=== PATIENT | female | born 1965 | race Caucasian/White ===

== ENCOUNTER 2016-10-10 21:08 | Emergency (ER) | payer OTHER ==
[~2016-10-10] VITALS: Ht 175.2 cm; Wt 178.3 kg
[~2016-10-10 21:08] MED LIST: ADVAIR 500/501 E1 INH; ALDACTONE25 M1 PO; AUGMENTIN 400 M50 ML PO; AUGMENTIN 875 M1 TAB PO; AUGMENTIN 875875 MG PO; BACTROBAN OINT22 GM T; BIAXIN500 MG PO; BUMETANIDE1 MG PO; BUMETANIDE2 MG PO; BUMEX2 MG PO; CEFTIN250 MG PO; CEFUROXIME AXE250 MG PO; CLARITIN10 MG PO; COREG3.125 MG PO; COREG6.25 MG PO; COUMADIN1 MG PO; COUMADIN3 M1 PO; COUMADIN4 M2 PO; COUMADIN5 M2 PO; COUMADIN6 MG; Coumadin3 MG PO; DAYPRO600 M1 PO; DELTASONE20 M1 PO; DIFLUCAN150 MG PO; DOXYCYCLINE100 MG PO; DUONEB 3 MG/3 ML3 M1 NEB; FERREX 150150 MG PO; FLEXERIL10 MG PO; FLONASE0.05 MG/AC NS; GLUCOPHAGE500 MG PO; GLUCOTROL XL10 MG PO; HUMULIN 70/30 703 M1 SQ; IMDUR SA30 MG PO; K-DUR20 MEQ PO; LISINOPRIL10 MG PO; LISINOPRIL5 MG PO; LOMOTIL 0.025 M1 TA1 PO; LOVASTATIN20 MG PO; LYRICA75 MG PO; MEDROL DOSEPAK4 MG PO; MOTRIN800 MG PO; NEURONTIN300 MG PO; NORCO 325 MG-7.1 TAB PO; NOVOLIN 70/30 701 EA SC; NOVOLOG1 UNIT/0.0 SC; NOVOLOG100 U/ML SC; OXYGEN NAS; PEN-VEE K500 MG PO; PERCOCET 325 MG1 TA7 PO; POTASSIUM20 MEQ PO; PRAVASTATIN SOD40 MG PO; PREDNISONE10 MG PO; PREDNISONE5 MG PO; PYRIDIUM200 MG PO; ROBAXIN750 MG PO; Synthroid,Levo50 MCG PO; TORADOL10 MG PO; TRAMADOL HCL50 MG PO; TYLENOL325 M1 PO; VICODIN 5/500 505 MG PO; VICODIN 500 MG-1 TAB PO; VICODIN ES 7501 TA1 PO; VICODIN ES 7501 TAB PO; WARFARIN4 MG PO; XANAX0.5 MG PO; ZANTAC150 MG PO; ZITHROMAX Z PA250 MG PO; ZOFRAN ODT4 MG SL
[2016-10-10 21:40] LABS: BASO % 0.3 % (0.0-1.0); EOS # 0.2 10*3/uL (0.0-0.4); EOS % 1.3 % (1.0-4.0); HEMOGLOBIN 9.8 g/dl (12.0-16.0); IG # 0.1 10*3/uL (0.0-0.1); LYMPH # 1.9 10*3/uL (1.3-4.4); LYMPH % 15.8 % (27.0-41.0); MEAN CELL VOLUME 85.1 fl (81.0-99.0); MEAN CORPUSCULAR HGB 25.3 pg (27.0-31.0); MEAN CORPUSCULAR HGB CONC 29.7 g/dl (33.0-37.0); MEAN PLATELET VOLUME 8.5 fl (9.6-12.3); MONO # 0.5 10*3/uL (0.1-1.0); MONO % 4.5 % (3.0-9.0); NEUT # 9.2 10*3/uL (2.3-7.9); NEUT % 77.4 % (47.0-73.0); PLATELET COUNT AUTOMATED 298 10*3/uL (130-400); RED BLOOD COUNT 3.88 10*6/uL (4.10-5.10); RED CELL DISTRI WIDTH 17.8 % (0-14.5); WHITE BLOOD COUNT 11.9 10*3/uL (4.8-10.8)
[2016-10-10 21:50] LABS: PROTHROMBIN TIME 32.8 SECONDS (9.0-12.4)
[2016-10-10 21:59] LABS: ALBUMIN 3.1 gm/dl (3.1-4.5); ALKALINE PHOSPHATASE 111 U/L (45-117); BILIRUBIN, TOTAL 0.2 mg/dl (0.2-1.0); BUN 35 mg/dl (7-24); CARBON DIOXIDE 28 mmol/L (21-32); CHLORIDE 104 mmol/L (98-107); EST GLOM FILT AFRICAN AMERICAN 53 ml/min; GLUCOSE 390 mg/dL (65-99); POTASSIUM 5.1 mmol/L (3.5-5.1); SGOT/AST 9 IU/L (3-35); SGPT/ALT 20 U/L (12-78); SODIUM 141 mmol/L (136-145); TOTAL PROTEIN 7.4 gm/dL (6.4-8.2); TROPONIN I < 0.015 ng/ml (<0.5)
[2016-10-10 22:30] VITALS: BP 160/61
[2016-10-10 22:53] LABS: BILIRUBIN NEGATIVE (NEGATIVE); BLOOD 3+ (NEGATIVE); CLARITY CLEAR (CLEAR); COLOR YELLOW (YELLOW); GLUCOSE 3+ (NEGATIVE); KETONE NEGATIVE (NEGATIVE); LEUKO ESTERASE NEGATIVE (NEGATIVE); NITRITE NEGATIVE (NEGATIVE); PROTEIN 2+ (NEGATIVE); SPECIFIC GRAVITY 1.015 (1.005-1.030); UROBILINOGEN 0.2 E.U./dl (0.2-1.0)
[2016-10-10 23:06] LABS: BACTERIA 2+; RBC 21-30 rbc/hpf (0-2); URINE REFLEX COMMENT YES (NO)
[2016-10-12] MEDS ORDERED: NEURONTIN300 MG PO (14:37)
[2016-10-14] MEDS ORDERED: COREG12.5 M1 PO (07:59)
[2016-10-14] MEDS ORDERED: BUMETANIDE0.25 MG/ML PO (08:04)
[2016-10-26] MEDS ORDERED: ADVAIR 500/501 E1 INH (18:30)
[2016-10-29] MEDS ORDERED: BUMETANIDE0.25 MG/ML PO (08:38)
[2016-10-29] MEDS ORDERED: DUONEB 3 MG/3 ML3 M1 NEB (08:38)
[2016-10-29] MEDS ORDERED: GLIPIZIDE10 M2 PO (08:38)
== END 2016-10-11 00:35 | disposition home or self-care (01) ==
LOC: ED 21:08
PROVIDERS: Emergency Medicine Emergency Medical Services
DX: I50.9 Heart failure, unspecified (principal); I99.8 Other disorder of circulatory system; I10 Essential (primary) hypertension; E11.65 Type 2 diabetes mellitus with hyperglycemia; F41.9 Anxiety disorder, unspecified; Z88.2 Allergy status to sulfonamides; Z88.1 Allergy status to other antibiotic agents; Z79.4 Long term (current) use of insulin; Z79.01 Long term (current) use of anticoagulants; Z79.899 Other long term (current) drug therapy

== ENCOUNTER 2016-12-12 21:11 | Inpatient (IN) | payer OTHER ==
[~2016-12-12] VITALS: Ht 175.2 cm; Wt 178.9 kg
--- NOTE | ~2016-12-12 | PR ---
[place], [place] PROGRESS NOTE NAME: RIRI PETERSON UNIT #: [id number] ROOM: 406 DOCTOR: GILBERTO GUERRA MD BIRTHDATE: [birth year] DOS: 12/14/2016 SUBJECTIVE: The patient is doing fine without any complaints. Her leg edema has improved. She is no longer short of breath. She is back at her baseline. OBJECTIVE: VITAL SIGNS: Blood pressure is 146/63, pulse of 78, respirations 20, temperature 97.8. LUNGS: Clear. HEART: Regular. ABDOMEN: Obese. EXTREMITIES: Without any edema. LABORATORY DATA: Shows a glucose of 122, BUN 49, creatinine 1.7. GFR 35. Sodium 141, potassium 5.2. ASSESSMENT AND PLAN: 1. Acute diastolic congestive heart failure, improved clinically with less leg edema. 2. Type 2 diabetes mellitus with diabetic nephropathy. Kidney functions are stable. There is some slight worsening noticed probably from over-diuresis. Diuretic dosage has been decreased. 3. Benign hypertension, controlled. The plan is to discharge the patient to home today. 4. Factor V Leiden ____, on long-term anticoagulants. Coumadin was held yesterday and she will restart her Coumadin dosage when she goes home. GILBERTO GUERRA MD CM:PNTRANS [id number] GILBERTO GUERRA MD 12/14/16 1143 interface
--- NOTE | ~2016-12-12 | DS ---
[place], [place] DISCHARGE SUMMARY NAME: RIRI PETERSON UNIT #: [id number] ROOM: 406 DOCTOR: GILBERTO GUERRA MD BIRTHDATE: [birth year] DOS: 12/14/2016 DIAGNOSES: 1. Acute diastolic congestive heart failure. 2. Chronic renal failure with acute kidney injury, possibly from over diuresis. 3. Chronic lymphedema. 4. Chronic low back pain. 5. Type 2 diabetes mellitus, insulin-dependent. 6. Factor V Leiden mutation. 7. Benign hypertension. MEDICATIONS: All are same as admission. Only new prescription change made was Bumex was decreased to 2 mg in the morning and 1 mg in the evening. HOSPITAL COURSE: This patient is well known to us, comes in with complaints of difficulty breathing. Please refer H and P for details. After admission, the patient was placed on IV diuretics, breathing treatments, oxygen supplementation. She was noted to have worsening of her kidney failure and so the dosage of diuretic was cut down. She has continued to diurese with the IV Bumex and has improved. Her leg edema and shortness of breath has resolved and therefore this morning, the patient will be discharged to home to be followed up as an outpatient. DISCHARGE MEDICATIONS: Will be Bumex 2 mg in the morning and 1 mg in the evening, Xanax 0.5 t.i.d. p.r.n., insulin in the pump at 3.6 units an hour, lisinopril 10 daily, Percocet 10 q.6, oxygen 3 liters nasal cannula, Warfarin 10 mg daily, and 4 mg extra once a week, gabapentin 300 t.i.d., Coreg 12.5 b.i.d., Advair 500 one puff twice a day, DuoNeb b.i.d., glipizide 10 b.i.d. GILBERTO GUERRA MD CM:DISCHARG [id number] GILBERTO GUERRA MD 12/14/16 1043 interface
--- NOTE | ~2016-12-12 | WRIGHTHP ---
[place], [place] PATIENT HISTORY AND PHYSICAL EXAM NAME: RIRI PETERSON [facility] #: [id number] UNIT #: [id number] ROOM: 406 DOCTOR: GILBERTO GUERRA MD BIRTHDATE: [birth year] DOS: 12/13/2016 HISTORY OF PRESENT ILLNESS: The patient is 51 years old, comes in with complaints of difficulty breathing. The patient complains also of increased leg edema. Denies having any chest pains or palpitations, not have any fever or chills. Cough is not productive, was evaluated in the ER, was found to have mild diastolic CHF and was admitted. The patient denies having any complaints this morning. Her legs are already better with medications. PAST MEDICAL HISTORY: Significant for: 1. Acute diastolic CHF. 2. Chronic kidney disease from diabetic nephropathy. 3. Chronic low back pain. 4. Type 2 diabetes mellitus, insulin-dependent. 5. Morbid obesity. 6. Factor V Leiden mutation on long-term use of anticoagulants. 7. Chronic iron deficiency anemia. MEDICATIONS: She is on are insulin pump, oxygen, DuoNeb, Xanax, Bumex, Coreg, gabapentin, glipizide, lisinopril, warfarin, Percocet, NovoLog sliding scale. SOCIAL HISTORY: Nonsmoker. Does not use any alcohol. Lives at home. PHYSICAL EXAMINATION: GENERAL: She is awake and alert and oriented. VITAL SIGNS: Blood pressure is 133/52, pulse is 62, respirations 20, temperature 98.0. LUNGS: Diminished breath sounds. No wheezes heard. A few rales heard at the bases. HEART: Regular. ABDOMEN: Obese, soft. EXTREMITIES: Trace edema bilaterally. LABORATORY DATA: Chest x-ray again shows mild cardiac enlargement, prominence attenuation of the left hemithorax. White cell count is 10.9, hemoglobin 9.3, hematocrit 30.9, platelets 263. Protime is 41.6 with an INR of 3.6. Comprehensive glucose 206, BUN 52, creatinine 1.30. GFR 44, stage 3 renal failure. Sodium 144, potassium 5.2, chloride 106, bicarbonate 30. ASSESSMENT AND PLAN: 1. The patient who presents with shortness of breath and leg edema with acute diastolic congestive heart failure. The patient has been admitted. IV diuretics were given. Oxygen supplementation to be continued. 2. Chronic renal insufficiency, stage IV renal failure. We will decrease the dose of the Bumex. 3. Hyperkalemia from underlying renal failure, it did come down without any treatment. 4. Type 2 diabetes mellitus, insulin-dependent. She is on an insulin pump insulin. Blood sugars have been ordered. [place], [place] PATIENT HISTORY AND PHYSICAL EXAM NAME: RIRI PETERSON UNIT #: [id number] ROOM: [facility] DOCTOR: GILBERTO GUERRA MD BIRTHDATE: [birth year] GILBERTO GUERRA MD CM:HISPHYS:PATIENT HISTORY AND PHYSICAL EXAMINATION 6 0 GILBERTO GUERRA MD 12/13/16840 interface
[~2016-12-12 21:11] MED LIST changes: +BUMETANIDE0.25 MG/ML PO; +COREG12.5 M1 PO; +GLIPIZIDE10 M2 PO
[2016-12-12 21:14] VITALS: BP 157/69
[2016-12-12 21:38] VITALS: BP 143/53
[2016-12-12 22:11] LABS: BASO % 0.4 % (0.0-1.0); EOS # 0.2 10*3/uL (0.0-0.4); EOS % 2.1 % (1.0-4.0); HEMATOCRIT 30.9 % (37.0-47.0); HEMOGLOBIN 9.3 g/dl (12.0-16.0); LYMPH # 2.1 10*3/uL (1.3-4.4); LYMPH % 19.7 % (27.0-41.0); MEAN CELL VOLUME 87.5 fl (81.0-99.0); MEAN CORPUSCULAR HGB 26.3 pg (27.0-31.0); MEAN CORPUSCULAR HGB CONC 30.1 g/dl (33.0-37.0); MEAN PLATELET VOLUME 8.4 fl (9.6-12.3); MONO # 0.6 10*3/uL (0.1-1.0); MONO % 5.7 % (3.0-9.0); NEUT # 7.8 10*3/uL (2.3-7.9); NEUT % 71.7 % (47.0-73.0); PLATELET COUNT AUTOMATED 263 10*3/uL (130-400); RED BLOOD COUNT 3.53 10*6/uL (4.10-5.10); RED CELL DISTRI WIDTH 16.3 % (0-14.5); WHITE BLOOD COUNT 10.9 10*3/uL (4.8-10.8)
[2016-12-12 22:21] LABS: INTERNATIONAL NORM RATIO 3.6 (2.0-3.5); PROTHROMBIN TIME 41.6 SECONDS (9.0-12.4)
[2016-12-12 22:27] LABS: ALKALINE PHOSPHATASE 109 U/L (45-117); BILIRUBIN, TOTAL 0.2 mg/dl (0.2-1.0); BUN 52 mg/dl (7-24); CARBON DIOXIDE 30 mmol/L (21-32); CHLORIDE 106 mmol/L (98-107); EST GLOM FILT AFRICAN AMERICAN 53 ml/min; GLUCOSE 206 mg/dL (65-99); MAGNESIUM 2.6 mg/dL (1.5-2.1); POTASSIUM 5.2 mmol/L (3.5-5.1); SGOT/AST 14 IU/L (3-35); SGPT/ALT 25 U/L (12-78); SODIUM 144 mmol/L (136-145); TOTAL PROTEIN 7.4 gm/dL (6.4-8.2)
[2016-12-12 22:28] LABS: TROPONIN I < 0.015 ng/ml (<0.045)
[2016-12-12 22:38] VITALS: BP 140/49
[2016-12-13 01:30] VITALS: BP 133/52
[2016-12-13 07:07] LABS: POTASSIUM 4.8 mmol/L (3.5-5.1)
[2016-12-13 08:00] VITALS: BP 106/54
[2016-12-13 12:00] VITALS: BP 143/44
[2016-12-13 16:00] VITALS: BP 131/94
[2016-12-13 20:00] VITALS: BP 126/43
[2016-12-14] VITALS: BP 102/41
[2016-12-14 06:41] LABS: BASO # 0.1 10*3/uL (0.0-0.1); BASO % 0.4 % (0.0-1.0); EOS # 0.2 10*3/uL (0.0-0.4); EOS % 1.9 % (1.0-4.0); HEMOGLOBIN 9.4 g/dl (12.0-16.0); LYMPH # 2.3 10*3/uL (1.3-4.4); LYMPH % 17.9 % (27.0-41.0); MEAN CELL VOLUME 88.2 fl (81.0-99.0); MEAN CORPUSCULAR HGB 25.9 pg (27.0-31.0); MEAN CORPUSCULAR HGB CONC 29.4 g/dl (33.0-37.0); MEAN PLATELET VOLUME 8.6 fl (9.6-12.3); MONO # 0.7 10*3/uL (0.1-1.0); MONO % 5.7 % (3.0-9.0); NEUT # 9.5 10*3/uL (2.3-7.9); NEUT % 73.8 % (47.0-73.0); PLATELET COUNT AUTOMATED 277 10*3/uL (130-400); RED BLOOD COUNT 3.63 10*6/uL (4.10-5.10); RED CELL DISTRI WIDTH 16.2 % (0-14.5); WHITE BLOOD COUNT 12.9 10*3/uL (4.8-10.8)
[2016-12-14 07:28] LABS: POTASSIUM 5.2 mmol/L (3.5-5.1)
[2016-12-14 08:00] VITALS: BP 146/63
[2016-12-14] MEDS ORDERED: BUMETANIDE2 MG PO (08:29)
== END 2016-12-14 10:00 | disposition home health service (06) | DRG 291 ==
LOC: ED 21:11 → 4E 23:37 → EDHOLD 23:37 → 4E 23:51
PROVIDERS: Emergency Medicine Emergency Medical Services; Internal Medicine
DX: I13.0 Hypertensive heart and chronic kidney disease with heart failure and stage 1 through stage 4 chronic kidney disease, or unspecified chronic kidney disease (principal); I50.31 Acute diastolic (congestive) heart failure; J80 Acute respiratory distress syndrome; N18.4 Chronic kidney disease, stage 4 (severe); D68.51 Activated protein C resistance; E11.22 Type 2 diabetes mellitus with diabetic chronic kidney disease; N17.9 Acute kidney failure, unspecified; Z79.01 Long term (current) use of anticoagulants; E87.5 Hyperkalemia; E66.01 Morbid (severe) obesity due to excess calories; I89.0 Lymphedema, not elsewhere classified

== ENCOUNTER 2017-03-24 15:48 | Emergency (ER) | payer OTHER ==
[~2017-03-24] VITALS: Ht 175.2 cm; Wt 178.3 kg
[2017-03-24 16:14] VITALS: BP 119/55
[2017-03-24 17:20] LABS: BASO % 0.4 % (0.0-1.0); EOS # 0.2 10*3/uL (0.0-0.4); EOS % 1.7 % (1.0-4.0); HEMATOCRIT 32.3 % (37.0-47.0); HEMOGLOBIN 9.3 g/dl (12.0-16.0); LYMPH # 1.9 10*3/uL (1.3-4.4); LYMPH % 16.6 % (27.0-41.0); MEAN CELL VOLUME 84.1 fl (81.0-99.0); MEAN CORPUSCULAR HGB 24.2 pg (27.0-31.0); MEAN CORPUSCULAR HGB CONC 28.8 g/dl (33.0-37.0); MEAN PLATELET VOLUME 8.5 fl (9.6-12.3); MONO # 0.7 10*3/uL (0.1-1.0); MONO % 5.7 % (3.0-9.0); NEUT # 8.5 10*3/uL (2.3-7.9); NEUT % 75.2 % (47.0-73.0); PLATELET COUNT AUTOMATED 275 10*3/uL (130-400); RED BLOOD COUNT 3.84 10*6/uL (4.10-5.10); RED CELL DISTRI WIDTH 16.9 % (0-14.5); WHITE BLOOD COUNT 11.3 10*3/uL (4.8-10.8)
[2017-03-24 17:31] LABS: PROTHROMBIN TIME 34.2 SECONDS (9.0-12.4)
[2017-03-24 17:37] LABS: ALBUMIN 3.4 gm/dl (3.1-4.5); ALKALINE PHOSPHATASE 91 U/L (45-117); BILIRUBIN, TOTAL 0.3 mg/dl (0.2-1.0); BUN 53 mg/dl (7-24); CARBON DIOXIDE 29 mmol/L (21-32); CHLORIDE 104 mmol/L (98-107); CPK 83 U/L (26-192); EST GLOM FILT AFRICAN AMERICAN 41 ml/min; GLUCOSE 226 mg/dL (65-99); MAGNESIUM 2.6 mg/dL (1.5-2.1); SGOT/AST 9 IU/L (3-35); SGPT/ALT 18 U/L (12-78); SODIUM 140 mmol/L (136-145); TOTAL PROTEIN 7.4 gm/dL (6.4-8.2)
[2017-03-24 17:40] LABS: CKMB < 0.5 ng/ml (0.5-3.6); TROPONIN I < 0.015 ng/ml (<0.045)
[2017-03-24] MEDS ORDERED: CLINDAMYCIN HC300 MG PO (18:36)
== END 2017-03-24 18:25 | disposition home or self-care (01) ==
LOC: ED 15:48
PROVIDERS: Registered Nurse
DX: L03.116 Cellulitis of left lower limb (principal); E11.59 Type 2 diabetes mellitus with other circulatory complications; N18.3 Chronic kidney disease, stage 3 (moderate); R79.1 Abnormal coagulation profile; I50.9 Heart failure, unspecified; Z88.1 Allergy status to other antibiotic agents; Z88.2 Allergy status to sulfonamides; Z79.01 Long term (current) use of anticoagulants; Z90.49 Acquired absence of other specified parts of digestive tract; Z79.899 Other long term (current) drug therapy

== ENCOUNTER 2017-05-24 11:48 | Inpatient (IN) | payer OTHER ==
[~2017-05-24] VITALS: Ht 175.3 cm; Wt 188.2 kg
--- NOTE | ~2017-05-24 | CON ---
[place], [place] REPORT OF CONSULTATION NAME: RIRI PETERSON UNIT #: [id number] ROOM: 426 DOCTOR: QUENTIN DEVLIN MD BIRTHDATE: [birth year] DOS: 05/25/2017 HISTORY OF PRESENT ILLNESS: This is a 52-year-old -[place] woman with a history of extreme obesity, essential hypertension, type 2 diabetes mellitus and chronic renal insufficiency. She has been diagnosed with diastolic heart failure by me in the past and has had decompensation. She was here a few months ago with increasing shortness of breath and little more swelling. When she is on loop diuretic, her renal function seems to deteriorate to some extent. She had noticed increasing shortness of breath 2 to 3 days before this admission along with some weight gain. She has some dry chronic cough. She had no chest pain or palpitations. There was no dizziness or loss of consciousness. Some swelling of the legs, more so on the left side. She has obstructive sleep apnea and I believe has not used any CPAP. HOME MEDICATIONS: Advair, DuoNeb, alprazolam 0.5 mg t.i.d. p.r.n., bumetanide 2 mg daily, carvedilol 12.5 b.i.d., lisinopril 10 mg daily, oxycodone/acetaminophen daily and oxygen 3 liters per minute. PHYSICAL EXAMINATION: GENERAL: This reveals a patient who is extremely obese. She is alert and oriented. She has oxygen on and is moderately tachypneic. Her complexion is fine. She has no ____. NECK: Thyroid gland is difficult to palpate. VITAL SIGNS: Pulse is irregular at 60, blood pressure 133/65. JVP is difficult to assess, but I think probably not increased. RESPIRATORY: Breath sounds are moderately diminished bilaterally. No murmurs are present. She has 1 to 2+ edema in the lower extremities, little more on the left side. LABORATORY DATA: Chest x-ray does demonstrate some pulmonary congestion. BUN 51, creatinine 1.5, potassium is 5.0, hemoglobin 8.2 g/dL. She had an echocardiogram done earlier this year, which demonstrated normal LV systolic function. The quality of the study was poor because of her extreme obesity. IMPRESSION: 1. She probably has some degree of diastolic heart failure with some acute exacerbation. 2. Chronic kidney disease. 3. Moderate anemia. RECOMMENDATIONS: 1. IV Bumex should be continued. 2. When she is discharged home, either she should be on torsemide 40 mg daily or perhaps bumetanide along with a small dose of Zaroxolyn couple of times a week. 3. Anemia is quite significant and it is not clear whether etiology has been [place], [place] REPORT OF CONSULTATION NAME: RIRI PETERSON UNIT #: [id number] ROOM: 426 DOCTOR: QUENTIN DEVLIN MD BIRTHDATE: [birth year] determined. I thank you for this consult. QUENTIN DEVLIN MD CM:CONSTR:REPORT OF CONSULTATION 1716 05/26/17 0623 interface
--- NOTE | ~2017-05-24 | WRIGHTHP ---
[place], [place] PATIENT HISTORY AND PHYSICAL EXAM NAME: RIRI PETERSON UNIT #: [id number] ROOM: 426 DOCTOR: GILBERTO GUERRA MD BIRTHDATE: [birth year] DOS: 05/24/2017 HISTORY OF PRESENT ILLNESS: The patient is 52 years old, very well known to us, comes in with complaints of shortness of breath. As per family, she is unable to even walk a few steps without getting short of breath and oxygen saturation was running low even while on 2 liters of oxygen. The patient denies having any chest pains, palpitations. Says that she has been taking all her medications regularly. PAST MEDICAL HISTORY: Significant for last hospitalization in December 2016 with; 1. Diastolic CHF. 2. Chronic renal failure, stage 3. 3. Chronic lymphedema. 4. Chronic low back pain. 5. Type 2 diabetes mellitus, insulin dependent. 6. Benign hypertension. 7. Factor V Leiden mutation on long-term anticoagulants. MEDICATIONS: She is currently are insulin pump, carvedilol 12.5 b.i.d., glipizide 10 b.i.d., lisinopril 10 daily, Percocet 10 q. 6, Bumex 2 mg daily, breathing treatments, oxygen, Xanax 0.5 t.i.d. p.r.n., warfarin. SOCIAL HISTORY: Nonsmoker, does not use any alcohol. PHYSICAL EXAMINATION: GENERAL: She is awake and alert and oriented. VITAL SIGNS: Blood pressure is 132/49, pulse is 67, respirations 20, temperature 97.8. LUNGS: Diminished breath sounds, very poor air entry. HEART: Regular. ABDOMEN: Obese, soft, nontender. EXTREMITIES: Trace edema bilaterally. ASSESSMENT AND PLAN: 1. Acute diastolic congestive heart failure with hypoxic respiratory failure, acute. The patient has been admitted. IV diuretics have been ordered. Chest x-ray and routine labs have been ordered. 2. Long-term use of anticoagulants. The patient's protime was on the high side. Coumadin will be on hold. 3. Anemia. Iron, B12 and folic acid levels have been ordered along with Hemoccults. 4. Type 2 diabetes mellitus, insulin-dependent. Continue insulin pump. The patient manages it on her own. 5. Chronic kidney disease with stage 3. Continue close monitoring since she is on high dose of diuretics. [place], [place] PATIENT HISTORY AND PHYSICAL EXAM NAME: RIRI PETERSON UNIT #: [id number] ROOM: 426 DOCTOR: GILBERTO GUERRA MD BIRTHDATE: [birth year] GILBERTO GUERRA MD CM:HISPHYS:PATIENT HISTORY AND PHYSICAL EXAMINATION 6 5 GILBERTO GUERRA MD 05/25/17945 interface
--- NOTE | ~2017-05-24 | PR ---
[place], [place] PROGRESS NOTE NAME: RIRI PETERSON UNIT #: [id number] ROOM: 426 DOCTOR: GILBERTO GUERRA MD BIRTHDATE: [birth year] DOS: SUBJECTIVE: The patient is doing much better, does not have any new complaints today. OBJECTIVE: VITAL SIGNS: Graphic trend shows pressure 132/52, pulse of 58, respirations 16, afebrile. LUNGS: Diminished breath sounds, clear this morning. HEART: Regular. ABDOMEN: Obese, soft. EXTREMITIES: Trace edema bilaterally. ASSESSMENT AND PLAN: 1. Acute diastolic congestive heart failure, improved. 2. Acute hypoxic respiratory failure. Oxygen saturation is improved. She is on chronic oxygen supplementation at home. 3. Long-term use of anticoagulants. Protime is down to 3.1. We will restart the Coumadin and discharge. 4. Chronic renal insufficiency, stage 3, which pretty much is stable and may have improved slightly since admission even though she is on a different dose of diuretics. GILBERTO GUERRA MD CM:PNTRANS 1 1 GILBERTO GUERRA MD 05/26/17921 interface
[~2017-05-24 11:48] MED LIST changes: +CLINDAMYCIN HC300 MG PO
[2017-05-24 12:00] VITALS: BP 155/62
--- NOTE | 2017-05-24 12:03 | NUR ---
A 52, admitted to , under the services of GILBERTO Lenz MD with a diagnosis of CHF. Chief complaint is CHF. Patient arrived via bed from NH. Monitor applied. Initial assessment completed. Vital signs taken and recorded. GILBERTO LENZ MD notified of admission to the unit. Orders received. See assessment for past medical history, medications and allergies. Patient and/or family oriented to unit. [facility]. Clothing/patient valuable form completed. LISETH LOCKHART
[2017-05-24] MEDS ORDERED: BUMETANIDE2 MG PO (12:52)
--- NOTE | 2017-05-24 13:49 | NUR ---
MULTIPLE ATTEMPS TO CONTACT VIA HER OFFICE AND CELL PHONE FOR ORDERS, UNABLE TO CONTACT HER AT THIS TIME. WILL CONTINUE TO TRY
--- NOTE | 2017-05-24 15:46 | NUR ---
NOTIFIED OF CONSULT WILL SEE PT IN THE AM
[2017-05-24 15:51] LABS: BASO % 0.4 % (0.0-1.0); EOS # 0.2 10*3/uL (0.0-0.4); HEMATOCRIT 28.7 % (37.0-47.0); HEMOGLOBIN 8.2 g/dl (12.0-16.0); LYMPH # 1.8 10*3/uL (1.3-4.4); LYMPH % 18.8 % (27.0-41.0); MEAN CELL VOLUME 85.2 fl (81.0-99.0); MEAN CORPUSCULAR HGB 24.3 pg (27.0-31.0); MEAN CORPUSCULAR HGB CONC 28.6 g/dl (33.0-37.0); MEAN PLATELET VOLUME 8.4 fl (9.6-12.3); MONO # 0.6 10*3/uL (0.1-1.0); MONO % 6.4 % (3.0-9.0); NEUT # 6.8 10*3/uL (2.3-7.9); PLATELET COUNT AUTOMATED 247 10*3/uL (130-400); RED BLOOD COUNT 3.37 10*6/uL (4.10-5.10); RED CELL DISTRI WIDTH 17.3 % (0-14.5); WHITE BLOOD COUNT 9.5 10*3/uL (4.8-10.8)
[2017-05-24 16:00] VITALS: BP 117/50
[2017-05-24 16:02] LABS: CREATININE 1.5 mg/dL (0.55-1.02)
--- NOTE | 2017-05-24 18:20 | NUR ---
IV TO LEFT ARM OCCLUDED, NEW IV STARTED IN RIGHT ARM, 24GAGE, ON FIRST ATTEMPT.FLUSHED WITHOUT DIFFICULTY, GOOD BLOOD RETURN. PT TOLERATED WELL
--- NOTE | 2017-05-24 19:45 | NUR ---
PATIENT RESTING IN BED WATCHING TV. C/O SHORTNESS OF BREATH ON EXERTION. O2 NC INTACT. NO NEEDS MADE. BED IN LOWEST POSITION, CALL LIGHT IN REACH
[2017-05-24 20:00] VITALS: BP 147/72
[2017-05-25] VITALS: BP 132/49
--- NOTE | 2017-05-25 02:16 | NUR ---
PATIENT RESTING IN BED WITH NO S/S OF DISTRESS. RESPS EASY AND REGULAR. BED IN LOWEST POSITION, CALL LIGHT IN REACH
--- NOTE | 2017-05-25 05:29 | NUR ---
PATIENT DID SELF BLOOD GLUCOSE CHECK AT THIS TIME. RESULT 102. NO INSULIN GIVEN BY PATIENT VIA PUMP AT THIS TIME. WILL MONITOR
[2017-05-25 07:06] LABS: INTERNATIONAL NORM RATIO 3.8 (2.0-3.5)
[2017-05-25 08:00] VITALS: BP 129/66
--- NOTE | 2017-05-25 08:30 | NUR ---
Veterinary Technician in to talk to patient. Patient states lives at [address] with HER FAMILY. There are 0 steps in the home. Physician: DR GUERRA Pharmacy: [facility] Home health services: HAD OV AND REQUESTS THEM AGAIN UPON DC Patient's level of ADLs: MODERATE ASSIST Patient has working utilities: YES DME: NEB/CPAP/O2 FROM [facility] Follow-up physician's appointment after d/c: PREFERS TO MAKE HER OWN APPT Does patient want to access PORTAL?: Discharge plan HOME. FAVIAN HOWARD PT ASKING THAT I CALL HER BEE KEEPER ANNE AT [phone]
--- NOTE | 2017-05-25 10:00 | NUR ---
PATIENT HAS AN INSULIN PUMP AND A GLUCOMETER AT BEDSIDE.SHE REGULATES THE PUMP HERSELF NEEDED. DR CHARLIE MATHIAS.
--- NOTE | 2017-05-25 10:48 | NUR ---
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
--- NOTE | 2017-05-25 11:30 | NUR ---
BLOOD SUGAR TESTED BY PATIENT TO BE 128, NO COVERAGE NEEDED.
[2017-05-25 12:00] VITALS: BP 151/66
[2017-05-25 16:00] VITALS: BP 133/65
--- NOTE | 2017-05-25 17:30 | NUR ---
BLOOD SUGAR TAKEN BY PATIENT ,METER READS 113, NO COVERAGE NEEDED.
[2017-05-25 20:00] VITALS: BP 128/48
[2017-05-26] VITALS: BP 132/52
--- NOTE | 2017-05-26 02:35 | NUR ---
24 HR chart check completed.
[2017-05-26 06:50] LABS: BASO % 0.3 % (0.0-1.0); EOS # 0.2 10*3/uL (0.0-0.4); EOS % 1.8 % (1.0-4.0); HEMATOCRIT 28.5 % (37.0-47.0); LYMPH # 1.6 10*3/uL (1.3-4.4); LYMPH % 16.8 % (27.0-41.0); MEAN CELL VOLUME 84.8 fl (81.0-99.0); MEAN CORPUSCULAR HGB 23.8 pg (27.0-31.0); MEAN CORPUSCULAR HGB CONC 28.1 g/dl (33.0-37.0); MEAN PLATELET VOLUME 8.9 fl (9.6-12.3); MONO # 0.7 10*3/uL (0.1-1.0); MONO % 6.7 % (3.0-9.0); NEUT # 7.1 10*3/uL (2.3-7.9); NEUT % 74.1 % (47.0-73.0); PLATELET COUNT AUTOMATED 259 10*3/uL (130-400); RED BLOOD COUNT 3.36 10*6/uL (4.10-5.10); RED CELL DISTRI WIDTH 17.2 % (0-14.5); WHITE BLOOD COUNT 9.6 10*3/uL (4.8-10.8)
[2017-05-26 07:20] LABS: CREATININE 1.71 mg/dL (0.55-1.02)
[2017-05-26 07:26] LABS: INTERNATIONAL NORM RATIO 3.1 (2.0-3.5)
[2017-05-26 08:00] VITALS: BP 134/75
[2017-05-26] MEDS ORDERED: Zaroxolyn,Diul2.5 MG PO (08:04)
[2017-05-26] MEDS ORDERED: OXYCODONE HYDRO10 M2 PO (08:40)
--- NOTE | 2017-05-26 10:30 | NUR ---
Patient being discharged to home with home health via [facility]. Received order and faxed referral to [facility].
--- NOTE | 2017-05-26 10:51 | NUR ---
[facility] Discharge instructions reviewed with patient/family. Patient receptive and verbalizes understanding. Follow-up care arranged. Written instructions given to patient/family. ZULAY SMITH
--- NOTE | 2017-05-26 10:59 | NUR ---
pt refused sa tx..she is being discharged
== END 2017-05-26 11:32 | disposition home health service (06) | DRG 291 ==
LOC: 4E 11:48
PROVIDERS: ADMIT Internal Medicine
DX: I13.0 Hypertensive heart and chronic kidney disease with heart failure and stage 1 through stage 4 chronic kidney disease, or unspecified chronic kidney disease (principal); I50.33 Acute on chronic diastolic (congestive) heart failure; J96.01 Acute respiratory failure with hypoxia; Z68.44 Body mass index [BMI] 60.0-69.9, adult; N18.3 Chronic kidney disease, stage 3 (moderate); G89.29 Other chronic pain; M54.5 Low back pain; E11.22 Type 2 diabetes mellitus with diabetic chronic kidney disease; E66.8 Other obesity; D64.9 Anemia, unspecified; Z79.01 Long term (current) use of anticoagulants; Z99.81 Dependence on supplemental oxygen

== ENCOUNTER 2017-07-02 22:15 | Inpatient (IN) | payer OTHER ==
[~2017-07-02] VITALS: Ht 175.2 cm; Wt 188.7 kg
--- NOTE | ~2017-07-02 | DS ---
[place], [place] DISCHARGE SUMMARY NAME: RIRI PETERSON UNIT #: [id number] ROOM: 503 DOCTOR: FANTA GARDUNO MD BIRTHDATE: [birth year] DOS: 07/05/2017 DISCHARGE DIAGNOSES: 1. Coagulopathy with INR 4.2. The patient asked to hold Coumadin for 2 days and get protime performed again at the office and she sees Dr. Wolf within a week. 2. The patient with acute diastolic type congestive heart failure, improved with diuresis. Dr. Lal, her steel die printer followed her. 3. Morbid obesity, BMI of 61.9. The patient followed with Dietary. 4. Benign essential hypertension. Blood pressures were followed and treated. 5. Chronic atrial fibrillation. The patient anticoagulated with Coumadin. 6. Anemia of chronic disease. 7. Factor V Leiden mutation for which patient anticoagulated with Coumadin. 8. Generalized anxiety disorder. 9. Chronic lower back pains. 10. Chronic kidney disease stage 3, diabetic nephropathy. 11. Chronic lymphedema and changes in the legs. HOSPITAL COURSE: The patient was seen in the Emergency Department for hypoxemia and increased shortness of breath and the patient was admitted for congestive heart failure, treated with IV Bumex. The patient's breathing has improved and the patient was also seen by her steel die printer, Dr. Lal and professional athlete, Dr. Brown and the patient being cleared for discharge by Dr. Brown to home to follow up with her PCP, Dr. Wolf next week. Elevation of INR, apparently related to her medical treatment during her admission. The patient has been asked to hold back her Coumadin for 2 days and then restart the same dose and get her protime performed at office next week when she sees her PCP, Dr. Wolf. Chronic kidney disease stage 3 with diabetic nephropathy. Benign essential hypertension, with better controlled blood pressures now. Uncontrolled type 2 diabetes mellitus with poor compliance with diet. Morbid obesity. The patient worked with Dietary. Acute over chronic diastolic type CHF, improved with diuresis with IV Bumex. DISCHARGE LABORATORY DATA: BUN and creatinine of 50 and 1.5. Normal serum electrolytes. INR elevated at 4.2 today. A repeat chest x-ray showed no CHF. DISCHARGE MANAGEMENT: Coumadin on hold for 2 days, after which she will be started on 4 mg every Bernadette, total of 7 mg every Tuesday, Tuesday, , Tuesday and Tuesday; Dulera 2 inhalations twice a day, lisinopril 10 mg daily and oxycodone 10 mg every 6 hours as needed, Xanax 0.5 mg 8 hours p.r.n. for anxiety. [place], [place] DISCHARGE SUMMARY NAME: RIRI PETERSON UNIT #: [id number] ROOM: [facility] DOCTOR: FANTA GARDUNO MD BIRTHDATE: [birth year] FANTA GARDUNO MD CM:BERTRAM 05 01 FANTA GARDUNO MD 07/05/172299 interface
--- NOTE | ~2017-07-02 | WRIGHTHP ---
[place], [place] PATIENT HISTORY AND PHYSICAL EXAM [id number] UN[facility] #: [id number] ROOM: 503 DOCTOR: FANTA GARDUNO MD BIRTHDATE: [birth year] DOS: 07/03/2017 HISTORY OF PRESENT ILLNESS: The patient is a 52-year-old female with; 1. History of morbid obesity. 2. Diastolic chronic CHF, chronic kidney failure stage 3 and diabetic nephropathy, chronic lymphedema and chronic lower extremity swelling. 3. Chronic lower back pains. 4. Type 2 diabetes mellitus, insulin requiring and uncontrolled. 5. Benign essential hypertension. 6. Factor V Leiden mutation and long-term anticoagulation. 7. Generalized anxiety disorder. The patient presented to the Emergency Department and was seen by Dr. Worley for increasing shortness of breath starting yesterday evening and her pulse ox dropped to 72%. She was feeling more short of breath with exertion. The patient already takes oxygen at home. The patient was evaluated in the Emergency Department and diagnosed as having diastolic type acute CHF, given diuretics and recommended admission for further management through a monitored bed. After admission, the patient is starting to breathe somewhat better. She is on oxygen which she also takes at home. No chest pains, no GI or urinary symptoms. SYSTEMS REVIEW: LUNGS: Increased shortness of breath, no wheezing. GASTROINTESTINAL: No nausea, vomiting, diarrhea or constipation. CARDIOVASCULAR: No chest pains or palpitations. FAMILY HISTORY: Noncontributory. HOME MEDICATIONS: Coumadin, lisinopril, Bumex, glipizide, Coreg, Flovent, glipizide, oxycodone, Xanax. PHYSICAL EXAMINATION: GENERAL APPEARANCE: Alert, oriented x 3, morbidly obese. HEENT AND NECK: Extraocular movements are intact. Sclerae are anicteric. Oral mucosa is moist and clean. No obvious facial weakness. Neck is supple without any lymphadenopathy. No thyromegaly. No JVD. No carotid arterial bruits. LUNGS: Some basal crackles bilaterally. CARDIOVASCULAR SYSTEM: Heart rate is regular in rate and rhythm. S1 and S2 normally audible. No significant murmur or any other abnormal cardiac sounds. ABDOMEN: Soft, nontender. No obvious organomegaly. Bowel sounds are present. No obvious herniation. EXTREMITIES: She also has 2 to 3+ leg and pedal edema bilaterally her legs. CENTRAL NERVOUS SYSTEM: Alert and oriented x 3. Cranial nerves II-XII are intact. Speech is normal. The patient is able to move all extremities. Normal muscle strength. Deep tendon reflexes are equal on both sides. Plantars were downgoing. LABORATORY DATA: 11-15 wbc's in the urine and some blood cells. BUN and creatinine 47 and 1.4, otherwise normal serum electrolytes. Hemoglobin 8.5, white cell count 12,900. Chest x-ray showing possible CHF. [place], [place] PATIENT HISTORY AND PHYSICAL EXAM NAME: RIRI PETERSON UNIT #: [id number] ROOM: [facility] DOCTOR: LAUREEN SEPULVEDA,FANTA Orellana BIRTHDATE: [birth year] IMPRESSION: 1. The patient with acute diastolic type congestive heart failure and increased shortness of breath with hypoxemia, has been admitted to a monitored bed and Dr. Lal, her warehouse person has been consulted for further management of her congestive heart failure. 2. Morbid obesity, body mass index of 61.9, dietary to follow. 3. Benign essential hypertension. Blood pressure had been monitored and treated and controlled. Diabetic nephropathy stage 3 chronic kidney disease to be followed with BUN and creatinine levels and basic metabolic profile to be performed daily. 4. Uncontrolled type 2 diabetes mellitus, insulin requiring, related to noncompliance with diet. The patient kept on no concentrated sweet diet. 5. Factor V Leiden mutation. The patient to be continued on Coumadin, protimes to be monitored daily. INR was therapeutic at 2.5 yesterday. 6. Anemia of chronic disease. Hemoglobin 8.5 has been low since October and stays around this range. FANTA GARDUNO MD CM:HISPHYS:PATIENT HISTORY AND PHYSICAL EXAMINATION 51 46 FANTA GARDUNO MD 07/03/172045 interface
--- NOTE | ~2017-07-02 | PR ---
[place], [place] PROGRESS NOTE NAME: RIRI PETERSON UNIT #: [id number] ROOM: 503 DOCTOR: FANTA GARDUNO MD BIRTHDATE: [birth year] DOS: 07/04/2017 SUBJECTIVE: Patient says her breathing has significantly improved and she would like to go home. OBJECTIVE: VITAL SIGNS: Blood pressure 165/84, heart rate 74 beats, breathing 20 times per minute, temperature 98.1 degrees Fahrenheit. GENERAL APPEARANCE: The patient is alert and oriented x 3, in no visible distress. Morbid obesity. HEENT AND NECK: Exam within normal limits. CARDIOVASCULAR SYSTEM: Heart rate is regular in rate and rhythm. S1 and S2 normally audible. LUNGS: Decreased breath sounds. ABDOMEN: Soft, nontender. No obvious organomegaly. Bowel sounds are present. EXTREMITIES: Without significant cyanosis or edema. IMPRESSION: 1. Patient with diastolic type congestive heart failure, improved with diuresis. Dr. Lal, her hand ii thermal cutter is following. 2. Morbid obesity with BMI of 61.9. Patient being followed by Dietary. 3. Benign essential hypertension with somewhat elevated blood pressures. Dr. Lal, her hand ii thermal cutter is following. Patient is already on Coreg and lisinopril. I will increase the dose of lisinopril. 4. Chronic atrial fibrillation. Patient anticoagulated with Coumadin. INR is slightly elevated at 3.1 today. I will continue to follow. 5. Anemia of chronic disease. I will repeat hemoglobin and CBC tomorrow. 6. Patient anticoagulated for Factor V Leiden mutation. FANTA GARDUNO MD CM:PNTRANS [phone] FANTA GARDUNO MD 07/05/17 0025 interface
--- NOTE | ~2017-07-02 | PR ---
[place], [place] PROGRESS NOTE NAME: RIRI PETERSON UNIT #: [id number] ROOM: 503 DOCTOR: UVALDO GONZALES MD,AMISH BIRTHDATE: [birth year] DOS: 07/05/2017 PULMONARY FOLLOWUP SUBJECTIVE: She has been noted much better this morning. Shortness of breath symptoms have been resolving. Edema of the lower extremity has been improving. Currently, has Danny wraps in place. OBJECTIVE: VITAL SIGNS: Recorded showed the temperature noted normal, respiratory rate 20, heart rate 68, blood pressure 146/56. Pulse oxygen saturation 3 liters cannula 99% saturation. HEENT: No acute change. NECK: Supple. CARDIOVASCULAR: S1, S2 audible. LUNGS: Noted without any wheeze or crackles. ABDOMEN: Soft, nontender. EXTREMITIES: Showed chronic changes. LABORATORY DATA: INR noted 4.2 mildly elevated above the therapeutic range. BMP today: BUN 50, creatinine 1.54. The chest x-ray done this morning does not show any further pleural fluid. IMPRESSION: The patient ____ of the pleural fluid with area of atelectasis left lower lobe is improving, congestive heart failure over respiratory status. PLAN OF TREATMENT: From the pulmonary standpoint, the patient could be discharged home whenever desired by the primary care physician. AMISH BAILON MD CM:PNTRANS [id number] AMISH GONZALES MD 07/06/176 interface
--- NOTE | ~2017-07-02 | EKG ---
[place], [place] ELECTROCARDIOGRAM REPORT NAME: RIRI PETERSON UNIT #: [id number] ROOM: 503 DOCTOR: AMISH GOMEZ MD BIRTHDATE: [birth year] DOS: 07/03/2017 ELECTROCARDIOGRAM TIME: 10:57 p.m. Normal sinus rhythm was noted. Heart rate of 70 beats per minute. Otherwise, electrocardiogram was noted as normal. AMISH BAILON MD CM:EKGRPT:ELECTROCARDIOGRAM REPORT [id number] AMISH GONZALES MD
--- NOTE | ~2017-07-02 | PR ---
[place], [place] PROGRESS NOTE NAME: RIRI PETERSON UNIT #: [id number] ROOM: 503 DOCTOR: UVALDO GONZALES MD,AMISH BIRTHDATE: [birth year] DOS: 07/04/2017 PULMONARY FOLLOWUP SUBJECTIVE: She has been noted with reduction of the respiratory symptoms in the last 24 hours. Denies symptoms of chest pain. Coughing has been noted minimal. There were no symptoms of chest pain. OBJECTIVE: VITAL SIGNS: For the patient which are recorded patient shows the temperature noted normal, respirations 18, heart rate 81, blood pressure 159/53. Intake is 1800, the output 2600 mL, ____. Pulse ox saturation 90% saturation noted on 3 L nasal cannula. HEENT: Examination shows no new change. NECK: Supple. CARDIOVASCULAR: S1, S2 audible. LUNGS: The patient noted decreased breath sounds in the lungs with scattered wheezing, no crackles. ABDOMEN: Soft, nontender. LABORATORY DATA: BMP of the patient that was done this morning, BUN 45, creatinine 1.45, glucose 386. PT/INR 3.1, which is therapeutic. IMPRESSION: The patient who has been currently noted with acute exacerbation of chronic obstructive pulmonary disease with congestive heart failure, area of atelectasis, and pleural fluid chronic hypercoagulability disorder. PLAN OF MANAGEMENT: The patient will be done today for this patient for assessment of the ongoing pulmonary abnormalities with the PA lateral view. Other supportive therapy, plan of management and care. Additional treatment changes. The patient will be made based on the progression of the illness. AMISH BAILON MD CM:PNTRANS [id number] AMISH GONZALES MD 07/05/17 0047 interface
--- NOTE | ~2017-07-02 | CON ---
[place], [place] REPORT OF CONSULTATION NAME: RIRI PETERSON UNIT #: [id number] ROOM: 503 DOCTOR: UVALDO GONZALES MDAMISH BIRTHDATE: [birth year] DOS: 07/03/2017 CONSULTATION REQUESTED BY: Dr. Italia Wolf and Dr. Marie. REASON FOR CONSULTATION: Consultation was done for the patient assessment for the exacerbation of COPD. HISTORY OF PRESENT ILLNESS: This is a 52-year-old white female who has been admitted to the hospital past diagnosis of bronchial asthma, COPD. She has been also noted history of chronic hypoxic respiratory failure and obstructive sleep apnea disorder. She presented to the Emergency Room on 07/02/2017 with the symptoms of having increased shortness of breath occurring for the past couple of days. The shortness of breath has been noted severe which occurs with minimal exertion. She denies any symptoms of chest pain. She does have a cough with a small amount of sputum expectoration at time, most of the time, the cough has been noted nonproductive, [id number] severity. The patient was also noted symptoms of wheezing by thought. She denies symptoms of chest pain or hemoptysis. REVIEW OF SYSTEMS: CONSTITUTIONAL: Fatigue and tiredness noted without symptoms of fever or chills. EYES: Denies any burning, redness, or tenderness. EARS, NOSE, THROAT SYMPTOMS: Denies sore throat, hoarseness, otalgia, postnasal drainage. CARDIOVASCULAR: Denies anginal pain has been noted with edema of the lower extremities, which has been wheezing progressively. GASTROINTESTINAL: Chronic severe morbid obesity with gradual increased weight gain for this patient noted. There were no symptoms of nausea, vomiting, diarrhea, abdominal pain, hematemesis, melena, or hematochezia. GENITOURINARY: Denies dysuria, suprapubic pain, hematuria. SKIN: Chronic venous stasis pigmentation lower extremity noted. There were no ulcers or lesions. CENTRAL NERVOUS SYSTEM: Cranial nerves 2-12 intact. No focal deficits. MUSCULOSKELETAL SYMPTOMS: There were no acute joint pain, redness or tenderness described. Remaining systems were reviewed with the patient, they were noted all negative. PAST MEDICAL HISTORY: 1. History of congestive heart failure with the diastolic dysfunction. 2. History of chronic obstructive pulmonary disease. 3. History of factor V Leiden mutation, hypercoagulability on anticoagulation long-term. 4. Type 2 diabetes mellitus. 5. Chronic lower back pain. 6. Chronic kidney disease stage 2 to stage 3. 7. Anemia of chronic disease. 8. Chronic hypoxic respiratory failure. 9. Obstructive sleep apnea disorder CPAP or BiPAP. [place], [place] REPORT OF CONSULTATION NAME: RIRI PETERSON UNIT #: [id number] ROOM: [facility] DOCTOR: AMISH GOMEZ MD BIRTHDATE: [birth year] SOCIAL HISTORY: The patient never , lives at home. She has 2 children. Denies history of alcohol use or illicit drugs, tobacco use was noted to heavy tobacco use, started as a teenager, 2 packs of cigarettes per day that has been discontinued 18 years ago. FAMILY HISTORY: Essentially noted with history of COPD. MEDICATIONS: The patient's list of admission medications reconciliation by the nursing staff as use of Advair, oxygen supplementation 3 liters cannula, DuoNeb, Xanax, Bumex, Coreg, glipizide, lisinopril, Percocet, Coumadin, and sliding scale insulin coverage. DRUG ALLERGIES: Reported 1. ALLERGY TO THE LEVAQUIN. 2. SULFA DRUGS. PHYSICAL EXAMINATION: GENERAL: A 52-year-old white female who has been currently noted sitting on the side of the bed without any acute distress at this time of the assessment. VITAL SIGNS: Height was noted as 5 feet 9 inches, weight of 419 pounds, BMI 61.9. Normal temperature, respiratory rate 18-20, heart rate 72-63, blood pressure 144/60 to 151/72. Intake and output has not been documented. The pulse oxygen saturation, 3 L per nasal cannula, 97% saturation. HEENT: Severely reduced. Posterior pharyngeal space. NECK: Supple and obese, otherwise noted normal exam. CARDIOVASCULAR: S1, S2 audible. LUNGS: Noted diffuse reduction in the breath sounds and occasional crackles. The wheezing was noted in the lungs bilaterally. ABDOMEN: Soft with severe obesity. EXTREMITIES: Showed chronic venous stasis pigmentation. The patient with superimposed edema, moderate 2+. SKIN: No lesions or rashes. CENTRAL NERVOUS SYSTEM: Cranial nerves 2-12 intact. No focal deficit. MUSCULOSKELETAL: Does not show any acute deformities. LABORATORY DATA: CBC on 07/02/2017, WBC count 12.9, hemoglobin 8.5, hematocrit 29.7, platelet count 281,000. The lactic acid was 1.0 today. The PT/INR were noted 2.5 yesterday, which is therapeutic. CMP on admission, BUN 47, creatinine 1.42, glucose 249. The remaining CMP was normal. Troponin normal. One view chest x-ray very limited view for this patient, recurrent large body habitus. LABORATORY DATA: Pleural fluid in the left side, was unable to assess accurately. Right lung appears to be clear. IMPRESSION: 1. The patient who had been currently admitted to the hospital. The patient with noted combination of acute exacerbation of chronic obstructive pulmonary disease and bronchitis with history of chronic hypoxic respiratory failure. 2. Rule out pleural fluid in the left side ____ area of atelectasis or [place], [place] REPORT OF CONSULTATION NAME: RIRI PETERSON UNIT #: [id number] ROOM: [facility] DOCTOR: AMISH GOMEZ MD BIRTHDATE: [birth year] infiltration less likely to be acute pneumonia. 3. Morbid obesity. The patient also known history of chronic anticoagulation with factor V Leiden deficiency. 4. Obstructive sleep apnea disorder, which is treated with CPAP/BiPAP. PLAN OF TREATMENT: Agree with the continued use of the BiPAP for this patient's oxygen supplementation, bronchodilators. The patient will be started Solu-Medrol low dose 40 mg b.i.d. for the medical management of acute exacerbation of COPD. Obtain PA and lateral chest x-ray to more clearly assess the left lower lung. The sputum for Gram stain, culture will be done if the patient is able to expectorate sputum. Antibiotic for this patient ticker maintainer might suffice at this time until and unless the cultures shows any different organisms isolation. Supportive care therapy, plan of management and care. The oxygen supplementation continued to maintain a saturation of 92% or greater. Continue abstinence from tobacco use. Other supportive therapy, plan and management and care. Radiation treatment changes need to be made for this patient based on the progression of the illness. AMISH BAILON MD CM:CONSTR:REPORT OF CONSULTATION 1149 07/04/17 0441 interface
--- NOTE | ~2017-07-02 | CON ---
[place], [place] REPORT OF CONSULTATION NAME: RIRI PETERSON UNIT #: [id number] ROOM: 503 DOCTOR: QUENTIN DEVLIN MD BIRTHDATE: [birth year] DOS: 07/04/2017 HISTORY OF PRESENT ILLNESS: This is a 52-year-old -[place] woman with a history of essential hypertension, extreme obesity, chronic kidney disease, type 2 diabetes mellitus of longstanding who has had chronic diastolic heart failure with decompensation at times. She was in this hospital about a month ago with exacerbation of heart failure. She was diuresed aggressively at that time with marked improvement in her edema and was breathing. She also has sleep apnea and uses a CPAP at all times. She was readmitted to the hospital with several days history of increasing shortness of breath and more swelling on the left. There is no redness on the shins. She has had cellulitis in the past. She had no palpitations, dizziness, orthopnea. She uses a CPAP at night. Appetite is fine. No nausea, vomiting. She has not noticed any blood in the stools. HOME MEDICATIONS: Included Advair 500/50, DuoNeb treatments, alprazolam 0.5 mg t.i.d., 3 liters of oxygen by nasal cannula, bumetanide 2 mg daily, carvedilol 12.5 b.i.d., glipizide 10 mg b.i.d., lisinopril 10 mg daily, oxycodone, warfarin 7 mg daily alternating with 4 mg. PHYSICAL EXAMINATION: GENERAL: This is a patient who is moderately obese. She has pale appearance. She is not cyanotic and no finger clubbing. VITAL SIGNS: Pulse is regular at 80, blood pressure 159/53. NECK: JVP is difficult to assess because of obesity, but appears to be okay. No bruit in the neck. HEART: Auscultation revealed distant heart sounds and no murmurs. RESPIRATORY: Breath sounds are moderately diminished, more so on the left side. Percussion note appeared to be normal. EXTREMITIES: There is 2-3+ left pedal edema and 2+ right pedal edema and pretibial edema is also present, but it is difficult demonstrate because she gets pain with pressure on the shins. LABORATORY DATA: Chest x-ray demonstrated mild cephalization with left-sided pleural effusion. Hemoglobin 8.5 grams. Creatinine is 1.56. She had an echocardiogram one year ago, which demonstrated normal LV systolic function and diastolic dysfunction of impaired relaxation of the left ventricle. IMPRESSION: This patient has acute exacerbation of chronic diastolic heart failure. She has diuresed very nicely today and I think this should be continued and one needs to keep an eye on his kidney function, which is quite likely, will improve as she is diuresed more. Anemia may be also contributing [place], [place] REPORT OF CONSULTATION NAME: RIRI PETERSON UNIT #: [id number] ROOM: 503 DOCTOR: CLAUS SEPULVEDA,QUENTIN BIRTHDATE: [birth year] to heart failure in terms of high cardiac output state. I thank for this consult. QUENTIN DEVLIN MD CM:CONSTR:REPORT OF CONSULTATION 1220 07/04/17 2232 interface
[~2017-07-02 22:15] MED LIST changes: +OXYCODONE HYDRO10 M2 PO; +Zaroxolyn,Diul2.5 MG PO
[2017-07-02 22:22] VITALS: BP 171/42
[2017-07-02 22:34] VITALS: BP 151/42
[2017-07-02 22:36] VITALS: BP 143/39
[2017-07-02 23:04] VITALS: BP 158/56
[2017-07-02 23:16] LABS: BASO % 0.3 % (0.0-1.0); EOS # 0.3 10*3/uL (0.0-0.4); EOS % 2.1 % (1.0-4.0); HEMATOCRIT 29.7 % (37.0-47.0); HEMOGLOBIN 8.5 g/dl (12.0-16.0); LYMPH % 15.3 % (27.0-41.0); MEAN CELL VOLUME 82.3 fl (81.0-99.0); MEAN CORPUSCULAR HGB 23.5 pg (27.0-31.0); MEAN CORPUSCULAR HGB CONC 28.6 g/dl (33.0-37.0); MEAN PLATELET VOLUME 8.7 fl (9.6-12.3); MONO # 0.6 10*3/uL (0.1-1.0); MONO % 4.9 % (3.0-9.0); NEUT # 9.9 10*3/uL (2.3-7.9); NEUT % 76.9 % (47.0-73.0); PLATELET COUNT AUTOMATED 281 10*3/uL (130-400); RED BLOOD COUNT 3.61 10*6/uL (4.10-5.10); RED CELL DISTRI WIDTH 17.2 % (0-14.5); WHITE BLOOD COUNT 12.9 10*3/uL (4.8-10.8)
[2017-07-02 23:25] LABS: INTERNATIONAL NORM RATIO 2.5 (2.0-3.5)
[2017-07-02 23:33] LABS: ALBUMIN 3.2 gm/dl (3.1-4.5); ALKALINE PHOSPHATASE 105 U/L (45-117); BUN 47 mg/dl (7-24); CHLORIDE 102 mmol/L (98-107); CREATININE 1.42 mg/dL (0.55-1.02); MAGNESIUM 1.8 mg/dL (1.5-2.1); POTASSIUM 4.5 mmol/L (3.5-5.1); SGOT/AST 11 IU/L (3-35); SGPT/ALT 17 U/L (12-78); SODIUM 139 mmol/L (136-145); TOTAL PROTEIN 7.1 gm/dL (6.4-8.2)
[2017-07-02 23:35] LABS: TROPONIN I < 0.015 ng/ml (<0.045)
[2017-07-03 00:17] LABS: BILIRUBIN NEGATIVE (NEGATIVE); BLOOD 2+ (NEGATIVE); CLARITY SL CLOUDY (CLEAR); COLOR YELLOW (YELLOW); GLUCOSE TRACE (NEGATIVE); KETONE NEGATIVE (NEGATIVE); LEUKO ESTERASE 1+ (NEGATIVE); NITRITE NEGATIVE (NEGATIVE); PH 5.5 (5.0-9.0); SPECIFIC GRAVITY 1.015 (1.005-1.030); UROBILINOGEN 0.2 E.U./dl (0.2-1.0)
[2017-07-03 00:24] LABS: BACTERIA 4+; EPITHELIAL CELLS 25-30; RBC 16-20 rbc/hpf (0-2); YEAST 1+
[2017-07-03 01:40] VITALS: BP 144/60
--- NOTE | 2017-07-03 01:40 | NUR ---
A 52, admitted to , under the services of Dr. LAUREEN SEPULVEDA,FANTA Orellana with a diagnosis of DIASTOLIC CHF. Chief complaint is SHORTNESS OF BREATH. Patient arrived via stretcher from ER. Monitor applied. Initial assessment completed. Vital signs taken and recorded. DR. LAUREEN SEPULVEDA,FANTA Orellana notified of admission to the unit. Orders received. See assessment for past medical history, medications and allergies. Patient and/or family oriented to unit. [facility] visitation policy reviewed. Clothing/patient valuable form completed. JOHN PALENCIA
--- NOTE | 2017-07-03 02:15 | NUR ---
CALLED DR. GARDUNO FOR ADMITTING ORDERS.
--- NOTE | 2017-07-03 04:12 | NUR ---
PLACED ON CPAP EARLIER BY RESPIRATORY THERAPY.
--- NOTE | 2017-07-03 06:43 | NUR ---
CALLED DR. BAILON PERTAINING TO CONSULT.
--- NOTE | 2017-07-03 07:30 | NUR ---
ASSUMED CARE OF PT AT THIS TIME, RESPS EASY AND NONLABORED WITH NO S/S OF DISTRESS, CALL LIGHT WITH IN REACH
[2017-07-03 08:00] VITALS: BP 147/60
[2017-07-03 12:00] VITALS: BP 144/70
[2017-07-03 15:53] VITALS: BP 153/55
--- NOTE | 2017-07-03 18:06 | NUR ---
CONSULT CALLED TO , STATES THAT HE WILL SEE PT ON 07/04/17
[2017-07-03 20:00] VITALS: BP 135/48
--- NOTE | 2017-07-03 20:00 | NUR ---
AAOX3 SITTING UP IN BED. 02 INTACT A 3LPM VIA NASAL CANNULA; PULSE OX 96%. LUNGS DIMINISHED BILATERALLY WITH NO COUGH NOTED. PT. VOICES NO C/O AT THIS TIME. CALL LIGHT WITHIN REACH.
[2017-07-03 21:18] VITALS: BP 154/78
[2017-07-04] VITALS: BP 136/50
--- NOTE | 2017-07-04 | NUR ---
ASSUMED CARE OF PATIENT. ASSESSMENT COMPLETE. RESTING IN BED. NO VOICED COMPLAINTS. DENIES FURTHER NEEDS. CPAP INTACT. CALL LIGHT IN REACH. WILL CONTINUE TO MONITOR.
--- NOTE | 2017-07-04 00:42 | NUR ---
PT REFUSING UYEN ROXICODONE. MEDICATION OPENED. WASTED WITH SONU HENDRICKS
[2017-07-04 04:00] VITALS: BP 160/60
[2017-07-04 06:25] LABS: CREATININE 1.45 mg/dL (0.55-1.02)
[2017-07-04 06:30] LABS: INTERNATIONAL NORM RATIO 3.1 (2.0-3.5)
[2017-07-04 08:00] VITALS: BP 159/53
--- NOTE | 2017-07-04 08:07 | NUR ---
PT IN BED SLEEPING, AROUSES EASILY. NO DISTRESS NOTED. LUNGS CLEAR AND DIMINISHED. 3+ LLE EDEMA NOTED. PT DENIES PAIN AT PRESENT TIME. IV IN TACT AND FLUSHED. PLEASANT AND COOPERATIVE.
--- NOTE | 2017-07-04 09:00 | NUR ---
PHYSICAL THERAPY PAtient with nurse at this time. Jessica Luna ,PT
--- NOTE | 2017-07-04 09:33 | NUR ---
PHYSICAL THERAPY Patient eating breakfast at this time. Jessica Luna,PT
--- NOTE | 2017-07-04 10:54 | NUR ---
PHYSICAL THERAPY PAtient evaluated on 5, full evaluation to follow. Continue with PT as per plan of care with fall and 02 precautions. Home with family as prior and home health RN and PT. PAtient is moderate complexity via chart review, tests and evaluation: [id number]. Thank you for this referral. Jessica Luna,PT
[2017-07-04 12:00] VITALS: BP 172/57
--- NOTE | 2017-07-04 13:00 | NUR ---
PHYSICAL THERAPY Pt on her phone and ask me to come back this PM. When i came back Pt eating her lunch. ALEXANDRE STALLINGS BIOMEDICAL EQUIPMENT TECHNICIAN.
--- NOTE | 2017-07-04 13:42 | NUR ---
PHYSICAL THERAPY Back to see Vernell this PM 1:1 for her therapy session. Pt on 3 L o2 at all times. Pt sitting independent on the side of her bed. Transfer sit/stand and standing balance MIN A X 1, no LOB. Followed by gait total 48' X 1, CG X 1, no LOB, just slow and steard with verbal cues for gait safety and her turns. Pt back sitting independent on the side of her bed and just a little SOB with this and wanting a sitting rest. Will try wheeled walker tomorrow for her gait distance and working on being SOB. 4 family members in at this time. ALEXANDRE STALLINGS MD DO [facility].
[2017-07-04 16:00] VITALS: BP 165/84
[2017-07-04 20:00] VITALS: BP 176/55
--- NOTE | 2017-07-04 21:51 | NUR ---
PT IV SITE CLOTTED, AND PT STATES THAT IV WAS JUST CHANGED TODAY, AND STATES THAT SHE DOES NOT WANT ANOTHER SITE UNLESS JONAS, R/T DISCHARGE ON 07/05/17, CALL PLACED TO . STATES TO TAKE LINE OUT AT THIS TIME
--- NOTE | 2017-07-04 23:03 | NUR ---
pt placed on cpap 7 30% o2 pt tolerating cpap at this time spo2 97%
[2017-07-05] VITALS: BP 146/56
[2017-07-05 06:48] LABS: CREATININE 1.54 mg/dL (0.55-1.02); POTASSIUM 4.7 mmol/L (3.5-5.1)
[2017-07-05 07:01] LABS: INTERNATIONAL NORM RATIO 4.2 (2.0-3.5)
[2017-07-05 08:00] VITALS: BP 160/60
--- NOTE | 2017-07-05 08:15 | NUR ---
Nut Picker in to talk to patient. Patient states lives at HOME with HER FAMILY. There are 0 steps in the home. Physician: DR GUERRA [facility]: HAS [facility] BUT WANTS [facility] [place]. NOT HAPPY WITH CURRENT HOME HEALTH CO Patient's level of ADLs: MODERATE ASSIST Patient has working utilities: YES DME: NEB/CPAP/O2 FROM [facility] Follow-up physician's appointment after d/c: PREFERS TO MAKE HER OWN APPT Does patient want to access PORTAL?: Discharge plan HOME. FAVIAN HOWARD
--- NOTE | 2017-07-05 09:53 | NUR ---
PHYSICAL THERAPY Mrs Palacios seen this AM 1:1 for her therapy session. Pt was sitting independent on the side of her bed and on 3 L o2 at all times. SIt/stand, standing balance supervision x 1. Then gait total 80' X 1, supervision x 1, no LOB little cueing for her turns and safety. Pt up sitting at bedside then went over act Ex to bilateral LE of marching, LAQ's, and ankle pumps and having no problem with these. Pt said that she might be going home this afternoon. ALEXANDRE STALLINGS FUEL HOUSE ATTENDANT.
[2017-07-05 12:00] VITALS: BP 126/47
[2017-07-05 16:00] VITALS: BP 110/86; BP 142/63
--- NOTE | 2017-07-05 20:20 | NUR ---
PATIENT DISCHARGED HOME WITH FAMILY DISCHARGE INSTRUCTIONS REVIEWED PATIENT WILL FOLLOW UP IN ONE WEEK ORDERED
--- NOTE | 2017-07-06 06:50 | NUR ---
PHYSICAL THERAPY CO-SIGN I approve of the Phyical Therapy notes written above. MEDHAT CONTRERAS PT
--- NOTE | 2017-07-06 12:27 | NUR ---
REFERRAL MADE TO [facility]. SPOKE WITH ALEXANDRE. AWARE OF DC YESTERDAY. ORDER AND INFO FAXED.
== END 2017-07-05 20:00 | disposition home health service (06) | DRG 291 ==
LOC: ED 22:15 → 5E 07-03 00:32 → EDHOLD 07-03 00:32 → 5E 07-03 00:47
PROVIDERS: Emergency Medicine Emergency Medical Services; ADMIT Internal Medicine
PROC: 5A09357 Assistance with Respiratory Ventilation, Less than 24 Consecutive Hours, Continuous Positive Airway Pressure (ICD-10-PCS; principal; 2017-07-04)
DX: I13.0 Hypertensive heart and chronic kidney disease with heart failure and stage 1 through stage 4 chronic kidney disease, or unspecified chronic kidney disease (principal); J96.21 Acute and chronic respiratory failure with hypoxia; D68.51 Activated protein C resistance; E11.22 Type 2 diabetes mellitus with diabetic chronic kidney disease; N18.4 Chronic kidney disease, stage 4 (severe); E11.65 Type 2 diabetes mellitus with hyperglycemia; E44.1 Mild protein-calorie malnutrition; Z99.81 Dependence on supplemental oxygen; I50.33 Acute on chronic diastolic (congestive) heart failure; J44.1 Chronic obstructive pulmonary disease with (acute) exacerbation; Z68.44 Body mass index [BMI] 60.0-69.9, adult; E66.01 Morbid (severe) obesity due to excess calories; D63.8 Anemia in other chronic diseases classified elsewhere; I48.2 Chronic atrial fibrillation; F41.1 Generalized anxiety disorder; G89.29 Other chronic pain; M54.5 Low back pain; G47.33 Obstructive sleep apnea (adult) (pediatric); Z88.1 Allergy status to other antibiotic agents; F17.200 Nicotine dependence, unspecified, uncomplicated; Z88.2 Allergy status to sulfonamides; Z91.09 Other allergy status, other than to drugs and biological substances; Z79.01 Long term (current) use of anticoagulants; Z79.4 Long term (current) use of insulin; Z79.899 Other long term (current) drug therapy; Z90.49 Acquired absence of other specified parts of digestive tract; Z98.51 Tubal ligation status; Z98.49 Cataract extraction status, unspecified eye; Z82.49 Family history of ischemic heart disease and other diseases of the circulatory system; Z83.3 Family history of diabetes mellitus; Z80.9 Family history of malignant neoplasm, unspecified; Z91.11 Patient's noncompliance with dietary regimen

== ENCOUNTER 2017-08-08 21:21 | Inpatient (IN) | payer OTHER ==
[~2017-08-08] VITALS: Ht 175.2 cm; Wt 189.3 kg
--- NOTE | ~2017-08-08 | WRIGHTHP ---
[place], [place] PATIENT HISTORY AND PHYSICAL EXAM [id number] UNIT #: [id number] ROOM: 404 DOCTOR: GILBERTO GUERRA MD BIRTHDATE: [birth year] DOS: 08/08/2017 HISTORY OF PRESENT ILLNESS: This patient is very well known to us, comes in with increased redness and swelling of the left lower leg. She was treated with antibiotics as an outpatient for left lower leg cellulitis and continues to get worse with persistent redness and swelling, burning feeling. She decided to come into the Emergency Room. She denied having any chest pains, palpitations, does not have any fever or chills, does not have any nausea, any emesis. PAST MEDICAL HISTORY: Significant for: 1. Last hospitalization June 2017 with acute diastolic CHF. 2. Morbid obesity with a BMI of 61.9. 3. Benign hypertension. 4. Chronic atrial fibrillation. 5. Anemia of chronic disease. 6. Factor V Leiden mutation. 7. Generalized anxiety disorder. 8. Chronic low back pain. 9. Chronic kidney disease stage 3. 10. COPD. MEDICATIONS: That she is on are Advair 500, oxygen, breathing treatments, Xanax 0.5 t.i.d., Bumex 2 mg daily, Coreg 12.5 twice a day, glipizide 10 daily, lisinopril 10 daily, oxycodone 10 q. 6 hours, Coumadin, insulin pump. SOCIAL HISTORY: Nonsmoker, does not use any alcohol. PHYSICAL EXAMINATION: GENERAL: She is awake and alert and oriented. VITAL SIGNS: Graphic trend shows blood pressure of 133/44, pulse of 70, respirations 18, temperature 98.5. LUNGS: Diminished breath sounds. No wheezes, rales or rhonchi heard. HEART: Regular. ABDOMEN: Obese, soft, nontender. EXTREMITIES: Without any edema on the right. Left lower leg is reddened and swollen. ASSESSMENT AND PLAN: 1. Left ____ cellulitis with elevated white cell count. The patient is placed on IV antibiotics. 2. Acute kidney injury in a patient with chronic kidney disease. Slow IV hydration was ordered on admission, which can be discontinued because of high risk of developing diastolic congestive heart failure. 3. Type 2 diabetes mellitus, insulin-dependent. Continue insulin pump. Blood sugars are ordered twice a day. [place], [place] PATIENT HISTORY AND PHYSICAL EXAM NAME: RIRI PETERSON UNIT #: [id number] ROOM: 404 DOCTOR: GILBERTO GUERRA MD BIRTHDATE: [birth year] GILBERTO GUERRA MD CM:HISPHYS:PATIENT HISTORY AND PHYSICAL EXAMINATION 7 6 GILBERTO GUERRA MD 08/09/17907 interface
--- NOTE | ~2017-08-08 | DS ---
[place], [place] DISCHARGE SUMMARY NAME: RIRI PETERSON UNIT #: [id number] ROOM: 404 DOCTOR: GILBERTO GUERRA MD BIRTHDATE: [birth year] DOS: 08/12/2017 DIAGNOSES: 1. Bacteremia with Staphylococcus epidermidis, most likely a contaminant. 2. Cellulitis of the left lower leg, improved. 3. Morbid obesity with a BMI of 261.9. 4. History of diastolic congestive heart failure. 5. Benign hypertension. 6. Chronic kidney disease. 7. Elevated protime. 8. Factor V Leiden mutation. 9. Chronic low back pain. 10. Chronic obstructive pulmonary disease. DISCHARGE MEDICATIONS: Clindamycin 300 mg q.i.d. The other medication change made was the lisinopril was cut back to 2.5 because she remains hypotensive. The rest of the meds will remain the same. HOSPITAL COURSE: The patient is 52 years old, very well known to us, comes in with complaints of redness and swelling of the left lower leg. The patient was placed on vancomycin initially, but then developed a reaction to that, so we had to discontinue it and placed her on clindamycin. Blood cultures and elevated white cell count was noted. The patient's WBC count has normalized. Blood cultures initially drawn in the Emergency Room, 1 of the bottles did grow Staph epidermidis, which is most likely a contaminant. The other bottle was clear. A second blood culture drawn on 08/10, so far preliminary is negative. The patient is stable, does not have any fever. White cell count is again normalized. Kidney functions are stable. Slight hyperkalemia is noted. She also has elevated protimes and the Coumadin has been on hold. Blood sugars are very well controlled on the insulin pump. The patient is stable and can be discharged today after the arterial Dopplers are done and will await blood cultures as an outpatient for the final results, preliminary is negative. [place], [place] DISCHARGE SUMMARY NAME: RIRI PETERSON UNIT #: [id number] ROOM: 404 DOCTOR: GILBERTO GUERRA MD BIRTHDATE: [birth year] GILBERTO GUERRA MD CM:BERTRAM [id number] 6 GILBERTO GUERRA MD 08/12/17926 interface
--- NOTE | ~2017-08-08 | PR ---
[place], [place] PROGRESS NOTE NAME: RIRI PETERSON UNIT #: [id number] ROOM: 404 DOCTOR: GILBERTO GUERRA MD BIRTHDATE: [birth year] DOS: 08/10/2017 SUBJECTIVE: The patient is not having any new complaints other than increasing tiredness and sleepiness. PHYSICAL EXAMINATION: VITAL SIGNS: Blood pressure 130/74, pulse of 64, respirations 16, temperature 98.3. LUNGS: Diminished breath sounds. No wheezes, rales or rhonchi heard. HEART: Regular. ABDOMEN: Obese. EXTREMITIES: Without any edema. LABORATORY DATA: Iron is 22. Ferritin 21.9. Blood cultures show gram-positive cocci and no aerobic bacteria identified. WBC count is 11.7, slightly better from 13.1. Hemoglobin is down to 7.8, platelets 254. BMP: Glucose 102, BUN 50, creatinine 1.57. Electrolytes were normal. ASSESSMENT AND PLAN: 1. Cellulitis of the left lower leg, clinically improving, but the blood cultures are now showing positivity. await the final culture results and also antibiotic adjustments were made and repeat cultures ordered. 2. Chronic renal insufficiency, stage 3, which is at her baseline. Avoid nephrotoxic medications. 3. Iron deficiency anemia. Hemoccult will be ordered. The patient is placed on iron infusions. 4. Factor V Leiden mutation, on Coumadin, check protime. GILBERTO GUERRA MD CM:PNJOSE L [id number] GILBERTO GUERRA MD 08/10/17 1537 interface
--- NOTE | ~2017-08-08 | PR ---
[place], [place] PROGRESS NOTE NAME: RIRI PETERSON UNIT #: [id number] ROOM: 404 DOCTOR: GILBERTO GUERRA MD BIRTHDATE: [birth year] DOS: 08/12/2017 SUBJECTIVE: The patient is doing fine. She does not have any complaints today. OBJECTIVE: VITAL SIGNS: Graphic trend shows a pressure of 115/48, pulse of 84, respirations 20, temperature 98.6. LUNGS: Clear. HEART: Regular. ABDOMEN: Obese, soft, nontender. EXTREMITIES: Decreased edema and redness. ASSESSMENT AND PLAN: 1. Cellulitis of the left lower leg, improving clinically. 2. Chronic kidney disease, stable creatinine and GFR. 3. Hyperkalemia, possibly from renal insufficiency. She is not on any potassium supplements. The lisinopril dosage was cut down. 4. Benign hypertension. Pressures were on the low side yesterday; after the decrease in lisinopril, pressures have normalized. 5. Type 2 diabetes mellitus, on an insulin pump. Blood sugars well controlled. 6. Bacteremia. Repeat blood culture from the is still pending. If that comes back negative, the plan will be to discharge her to home. GILBERTO GUERRA MD CM:PNTRANS 0821 GILBERTO GUERRA MD 08/12/17 1047 interface
--- NOTE | ~2017-08-08 | PR ---
[place], [place] PROGRESS NOTE NAME: RIRI PETERSON UNIT #: [id number] ROOM: 404 DOCTOR: GILBERTO GUERRA MD BIRTHDATE: [birth year] DOS: 08/11/2017 SUBJECTIVE: The patient is not having any new complaints. The left leg looks much better. Denies having any chest pains or palpitations, headaches and dizziness. OBJECTIVE EXAMINATION: GENERAL: She is awake and alert and oriented. VITAL SIGNS: Graphic trend shows a pressure of 117/39, pulse of 84, respirations 19, temperature 98.1. LUNGS: Diminished breath sounds, clear. HEART: Regular. ABDOMEN: Obese, soft. EXTREMITIES: Decreased edema and redness in the left lower leg. LABORATORY DATA: Glucose 112; BUN 50, creatinine 1.80, GFR 30, stage 3 renal failure. Electrolytes normal. Hemoccults were negative. Blood cultures done on the shows no bacterial growth. This was drawn at 2209. Blood culture done again at 2232 did come back positive. This could very well be a contaminant. Repeat blood cultures are ordered from , which are not available yet. ASSESSMENT AND PLAN: 1. Cellulitis of the left lower leg, on IV antibiotics, improving. Arterial Doppler will be done today. 2. Iron deficiency anemia, on IV iron supplementation. 3. bacteremia with gram-positive cocci in clusters, on IV vancomycin. This could be a contaminant, awaiting the repeat culture report. If that comes back negative, the plan will be discharge her to home on p.o. antibiotics. The identification on the positive cultures not completed yet. Hemoccults have come back negative. 4. Benign hypertension. Pressures on the low side. We will cut back on the dose of the lisinopril. [place], [place] PROGRESS NOTE NAME: IRRI PETERSON UNIT #: [id number] ROOM: 404 DOCTOR: GILBERTO GUERRA MD BIRTHDATE: [birth year] GILBERTO GUERRA MD CM:PNTRANS 9 4 GILBERTO GUERRA MD 08/11/17 1706 interface
[2017-08-08 21:29] VITALS: BP 178/58
[2017-08-08 22:38] LABS: BASO # 0.1 10*3/uL (0.0-0.1); BASO % 0.4 % (0.0-1.0); EOS # 0.2 10*3/uL (0.0-0.4); EOS % 1.8 % (1.0-4.0); HEMATOCRIT 30.7 % (37.0-47.0); HEMOGLOBIN 8.5 g/dl (12.0-16.0); LYMPH # 2.1 10*3/uL (1.3-4.4); LYMPH % 16.1 % (27.0-41.0); MEAN CORPUSCULAR HGB CONC 27.7 g/dl (33.0-37.0); MEAN PLATELET VOLUME 8.8 fl (9.6-12.3); MONO # 0.7 10*3/uL (0.1-1.0); MONO % 5.3 % (3.0-9.0); NEUT % 75.9 % (47.0-73.0); PLATELET COUNT AUTOMATED 309 10*3/uL (130-400); RED CELL DISTRI WIDTH 17.4 % (0-14.5); WHITE BLOOD COUNT 13.1 10*3/uL (4.8-10.8)
[2017-08-08 22:46] LABS: INTERNATIONAL NORM RATIO 3.5 (2.0-3.5)
[2017-08-08 22:51] LABS: ALBUMIN 3.3 gm/dl (3.1-4.5); CREATININE 1.67 mg/dL (0.55-1.02); POTASSIUM 5.2 mmol/L (3.5-5.1); TOTAL PROTEIN 7.4 gm/dL (6.4-8.2)
--- NOTE | 2017-08-08 23:19 | NUR ---
ATTEMPTED TO CALL REPORT
[2017-08-08 23:28] VITALS: BP 155/39
[2017-08-08 23:45] VITALS: BP 133/44
--- NOTE | 2017-08-08 23:45 | NUR ---
Time: 2344 A 52 year old FEMALE admitted to 4E under services of GILBERTO LENZ MD. Pt. arrived via wheel chair from ER. Chief complaint: CELLULITIS OF LLE W/OUT FOOT. ANALI ROBERTS
[2017-08-09] VITALS: BP 133/44
--- NOTE | 2017-08-09 | NUR ---
REPORT GIVEN TO WHIT HENDRICKS
--- NOTE | 2017-08-09 00:55 | NUR ---
DR. GUERRA NOTIFIED OF PT ADMISSION. N.O. RCVD FOR ANCEF 1GM IV EVERY 8 HRS. AND 1800 ADA DIET.
[2017-08-09] MEDS ORDERED: GLUCOTROL10 MG PO (02:50)
--- NOTE | 2017-08-09 06:00 | NUR ---
PT RESTING QUIETLY IN BED WITH EYES CLOSED. NO S/S OF DISTRESS NOTED.
[2017-08-09 08:00] VITALS: BP 126/64
--- NOTE | 2017-08-09 08:07 | NUR ---
PATIENT ASSESSMENT COMPLETED, HAD NO COMPLAINTS OF SOB OR PAIN. RESTING PEACEFULLY ON RIGHT SIDE. O2 DEVICE WAS ON 0L, WHEN ENTERING ROOM. OXYGEN LEVEL WAS 88%, 02 DEVICE INCREASED TO ORDERED 3L AND OXYGEN LEVEL INCREASED TO 97%. PATIENT HAS FUNCTIONING INSULIN PUMP, OBTAINS OWN BGMS AND GIVES OWN INSULIN. RAFAEL CENTENOCC
--- NOTE | 2017-08-09 08:10 | NUR ---
PT SITTING UP AT SIDE OF BED EATING BREAKFAST, NO DISTRESS NOTED. EDUCATED PT THAT THE DR HAD ORDERED US TO CHECK BLOOD GLUCOSE BID, PT CHECKS HER OWN- BLOOD GLUCOSE 122 AND HAS AN INSULIN PUMP. LUNG SOUNDS DIMINISHED, 02 INTACT AT 3L NC, PT STATES [place], WHICH IS HER BASELINE. HRR, TRACE EDEMA NOTED TO BLE EXTREMITIES, PT DENIES CP, REDNESS NOTED TO LLE. BS X4 QUADS, DENIES N/V/D-STATES DM 08/08. PT DENIES ANY COMPLAINTS, CALL LIGHT WITHIN REACH.
--- NOTE | 2017-08-09 08:30 | NUR ---
Choir Accompanist in to talk to patient. Patient states lives at HOME with HER FAMILY.. There are 0 steps in the home. Physician: DR GUERRA Pharmacy: [facility] Home health services: NONE Patient's level of ADLs: MINIMAL ASSIST Patient has working utilities: YES DME: NEB/CPAP/O2 FROM [facility], [place] Follow-up physician's appointment after d/c: PREFERS TO MAKE HER OWN APPT Does patient want to access PORTAL?: Discharge plan HOME. FAVIAN HOWARD
--- NOTE | 2017-08-09 10:00 | NUR ---
PATIENT IS SITTING UP IN BED, RESTING COMFORTABLY. NO COMPLAINTS OF PAIN OR SOB. PATIENT TOOK OWN BLOOD GLUCOSE WITH PERSONAL METER, RESULT WAS 122. RAFAEL CENTENOCC
[2017-08-09 12:00] VITALS: BP 134/63
--- NOTE | 2017-08-09 12:00 | NUR ---
PATIENT IS SITTING ON SIDE OF BED, REFUSED 1200 OXYCODONE. NO COMPLAINTS OF SOB OR PAIN, FAMILY IN ROOM VISITING WITH PATIENT. RAFAEL CENTENOCC
--- NOTE | 2017-08-09 13:52 | NUR ---
REPORT GIVEN TO SADIQ. IV FLUSHED BEFORE KEFZOL STARTED. RAFAEL CENTENOCC
[2017-08-09 16:00] VITALS: BP 113/51
--- NOTE | 2017-08-09 17:22 | NUR ---
PT RESTING IN BED, NO DISTRESS NOTED. PT DENIES ANY COMPLAINTS. CALL LIGHT WITHIN REACH.
--- NOTE | 2017-08-09 18:59 | NUR ---
RECEIVED CRITICAL RESULT FROM LAB, PT HAS ONE SET OF POSITIVE BLOOD CULTURES- GPC IN CLUSTERS. NOTIFIED DR GUERRA, STATES TO D/C KEFZOL UNTIL SHE GETS THE REST OF THE CULTURES AND START PT ON IV VANCO.
[2017-08-09 20:00] VITALS: BP 140/63
--- NOTE | 2017-08-09 22:30 | NUR ---
PT C/O ITCHING ALL OVER. NO REDNESS OR RASH NOTED. IV VANCO INFUSING AT THIS TIME. IV RATE DECREASED. PT DENIES ANY BURING TO IV SITE. WILL CONT. TO MONITOR.
[2017-08-10] VITALS: BP 124/56
[2017-08-10 06:29] LABS: BASO % 0.3 % (0.0-1.0); EOS # 0.2 10*3/uL (0.0-0.4); EOS % 1.4 % (1.0-4.0); HEMATOCRIT 27.9 % (37.0-47.0); HEMOGLOBIN 7.8 g/dl (12.0-16.0); LYMPH # 1.3 10*3/uL (1.3-4.4); LYMPH % 11.1 % (27.0-41.0); MEAN CELL VOLUME 83.8 fl (81.0-99.0); MEAN CORPUSCULAR HGB 23.4 pg (27.0-31.0); MEAN PLATELET VOLUME 8.6 fl (9.6-12.3); MONO # 0.7 10*3/uL (0.1-1.0); MONO % 5.6 % (3.0-9.0); NEUT # 9.5 10*3/uL (2.3-7.9); NEUT % 81.2 % (47.0-73.0); PLATELET COUNT AUTOMATED 254 10*3/uL (130-400); RED BLOOD COUNT 3.33 10*6/uL (4.10-5.10); RED CELL DISTRI WIDTH 17.6 % (0-14.5); WHITE BLOOD COUNT 11.7 10*3/uL (4.8-10.8)
[2017-08-10 06:59] LABS: CREATININE 1.57 mg/dL (0.55-1.02); POTASSIUM 4.9 mmol/L (3.5-5.1)
[2017-08-10 07:30] VITALS: BP 130/74
--- NOTE | 2017-08-10 08:04 | NUR ---
PATIENT SLEEPING ON LEFT SIDE. NO COMPLAINTS OF PAIN OR SOB. IV SITE IN LEFT ANTECUBITAL NOT IN RIGHT ANTECUBITAL. SITE ACCESSED WAS 08/08/2017. ASSESSMENT COMPLETED. RAFAEL CENTENOCC
--- NOTE | 2017-08-10 08:10 | NUR ---
PT RESTING IN BED, NO DISTRESS NOTED. LUNG SOUNDS DIMINISHED, PT ON 3L NC, DENIES ANY SOB AT REST. HRR, 1+ EDEMA NOTED TO BLE, SOME REDNESS NOTE TO LLE, BUT NOT DRAINAGE NOTED. BS X4 QUADS, PT DENIES N/V/D- STATES BM 08/09. PT DENIES ANY COMPLAINTS AT THIS TIME. CALL LIGHT WITHIN REACH.
--- NOTE | 2017-08-10 08:42 | NUR ---
DR GUERRA HERE AT THIS TIME, UPDATED ON PT'S CONCERNS REGARDING THE ALL OVER ITCHING AFTER RECEIVING IV VANCO. DR GUERRA ALREADY AWARE FROM PT. STATES PT DOES NOT HAVE A RASH, BUT WILL SWITCH PT'S ANTIBIOTICS.
--- NOTE | 2017-08-10 10:00 | NUR ---
PATIEMT SITTING ON SIDE OF BED VISITING WITH FAMILY. NO COMPLAINTS OF SOB OR PAIN. REQUESTED TO HAVE SHOWER AFTER LUNCH. RAFAEL CENTENOCC
--- NOTE | 2017-08-10 10:30 | NUR ---
PT DENIES ANY ITCHING AFTER RECEIVING IV CLINDAMYCIN.
[2017-08-10 12:00] VITALS: BP 124/84
--- NOTE | 2017-08-10 12:07 | NUR ---
PATIENT RESTING IN BED, NO COMPLAINTS OF PAIN OR SOB. RAFAEL OrellanaDRCC
--- NOTE | 2017-08-10 13:42 | NUR ---
REPORT GIVEN TO SADIQ. ATTEMPTED TO GIVE SHOWER TO PATIENT BEFORE LUNCH, BUT PATIENT REFUSED. WHEERCHAIR AND O2 TANK WAS GATHER TO PREPARE FOR SHOWER. PATIENT IS STILL EATING LUNCH WITH FAMILY PRESENT. REPORTED GIVEN TO TONY THAT PATIENT WANTS SHOWER WHEN LUNCH IS COMPLETED. RAFAEL DING JDRCC
--- NOTE | 2017-08-10 14:24 | NUR ---
PT SITTING UP AT SIDE OF BED, NO DISTRESS NOTED. FAILY AT BEDSIDE. CALL LIGHT WITHIN REACH.
[2017-08-10 16:00] VITALS: BP 143/55
[2017-08-10 20:00] VITALS: BP 131/30
[2017-08-10 22:00] VITALS: BP 117/39
[2017-08-11] VITALS: BP 117/39
[2017-08-11 06:06] LABS: BASO % 0.4 % (0.0-1.0); EOS # 0.3 10*3/uL (0.0-0.4); EOS % 2.2 % (1.0-4.0); HEMATOCRIT 27.8 % (37.0-47.0); HEMOGLOBIN 7.7 g/dl (12.0-16.0); LYMPH # 1.5 10*3/uL (1.3-4.4); LYMPH % 12.7 % (27.0-41.0); MEAN CELL VOLUME 84.8 fl (81.0-99.0); MEAN CORPUSCULAR HGB 23.5 pg (27.0-31.0); MEAN CORPUSCULAR HGB CONC 27.7 g/dl (33.0-37.0); MEAN PLATELET VOLUME 9.1 fl (9.6-12.3); MONO # 0.7 10*3/uL (0.1-1.0); MONO % 6.4 % (3.0-9.0); NEUT # 8.9 10*3/uL (2.3-7.9); NEUT % 77.9 % (47.0-73.0); PLATELET COUNT AUTOMATED 263 10*3/uL (130-400); RED BLOOD COUNT 3.28 10*6/uL (4.10-5.10); RED CELL DISTRI WIDTH 17.7 % (0-14.5); WHITE BLOOD COUNT 11.4 10*3/uL (4.8-10.8)
[2017-08-11 06:14] LABS: CREATININE 1.8 mg/dL (0.55-1.02); POTASSIUM 4.9 mmol/L (3.5-5.1)
[2017-08-11 06:48] LABS: INTERNATIONAL NORM RATIO 4.7 (2.0-3.5)
--- NOTE | 2017-08-11 06:58 | NUR ---
DR GARDUNO WAS CONTACTED FOR A CRITICAL PT [place] 55 AND AN INR OF 4.7. HE ORDERED THE DAILY WARFARIN BE HELD TODAY AND THE PT BE REPEATED DAILY.
--- NOTE | 2017-08-11 07:30 | NUR ---
IN TO SEE PT, NO S/S OF PAIN OR DISTRESS NOTED. RESPIRATIONS EASY AND UNLABORED. ASSESSMENT COMPLETE. PT ALERT ORIENTED AND PLEASANT. ENCOURAGED USE OF CALL LIGHT FOR ANY NEEDS OR QUESTIONS.
[2017-08-11 08:00] VITALS: BP 98/40
--- NOTE | 2017-08-11 08:31 | NUR ---
ASSESSMENT COMPLETED, NO COMPLAINTS OF PAIN OR SOB. SITTING ON SIDE OF BED AFTER BREATHING TREATMENT WAS FINISHED. PATIENT'S BLOOD SUGAR AT 0810 WAS 71, GIVEN A CUP OF ORANGE JUICE AND CRACKERS TO HELP INCREASE BLOOD SUGAR UNTIL BREAKFAST ARRIVES. PATIENT STOPPED INSULIN PUMP TO PREVENT BLOOD SUGAR FROM DECREASING FURTHER. PATIENT REQUESTED HER HAIR BE WASHED AFTER BREAKFAST AND MORNING MEDS, BUT REFUSED FULL SHOWER, BECAUSE SHE WASHED HER BODY YESTERDAY EVENING. RAFAEL CENTENOCC
[2017-08-11 09:06] VITALS: BP 110/52
--- NOTE | 2017-08-11 10:59 | NUR ---
PATIENT RECEIVED RECLINING CHAIR FOR ROOM, BECAUSE THE COMPLAINTS OF DISCOMFORT. PATIENT HAIR WAS WASHED IN ROOM USING THE SINK. PATIENT ASKED FOR BUTTON TUFTING MACHINE OPERATOR, WHEN ASKED THE AIDE SAID THAT THE HOSPITAL DID NOT HAVE ANY TO USE, AND PATIENT WAS INFORMED. PATIENT SITTING COMFORTABLE IN CHAIR WITH TOWEL ON HAIR. RAFAEL CENTENOCC
[2017-08-11 12:00] VITALS: BP 100/53
--- NOTE | 2017-08-11 12:16 | NUR ---
PATIENT SITTING COMFORTABLY IN CHAIR WITH FAMILY VISITING. NO COMPLAINTS OF PAIN OR SOB. RAFAEL CENTENOCC
--- NOTE | 2017-08-11 13:58 | NUR ---
REPORTED OFF TO PRITESH HENDRICKS. PATIENT SITTING IN CHAIR WITH FAMILY VISITING. RAFAEL CENTENOCC
[2017-08-11 16:00] VITALS: BP 115/40
--- NOTE | 2017-08-11 18:00 | NUR ---
PT RESTING IN BED, NO S/S OF DISTRESS. RESPIRATIONS EASY AND UNLABORED. NO COMPLAINTS VOICED. ENCOURAGED USE OF CALL LIGHT.
[2017-08-11 20:00] VITALS: BP 104/70; BP 108/37
[2017-08-12] VITALS: BP 115/48
[2017-08-12 06:25] LABS: BASO % 0.3 % (0.0-1.0); EOS # 0.2 10*3/uL (0.0-0.4); EOS % 2.3 % (1.0-4.0); HEMATOCRIT 27.6 % (37.0-47.0); HEMOGLOBIN 7.6 g/dl (12.0-16.0); LYMPH # 1.6 10*3/uL (1.3-4.4); LYMPH % 15.9 % (27.0-41.0); MEAN CELL VOLUME 84.1 fl (81.0-99.0); MEAN CORPUSCULAR HGB 23.2 pg (27.0-31.0); MEAN CORPUSCULAR HGB CONC 27.5 g/dl (33.0-37.0); MEAN PLATELET VOLUME 8.9 fl (9.6-12.3); MONO # 0.7 10*3/uL (0.1-1.0); MONO % 6.6 % (3.0-9.0); NEUT # 7.6 10*3/uL (2.3-7.9); NEUT % 74.2 % (47.0-73.0); PLATELET COUNT AUTOMATED 268 10*3/uL (130-400); RED BLOOD COUNT 3.28 10*6/uL (4.10-5.10); RED CELL DISTRI WIDTH 17.8 % (0-14.5); WHITE BLOOD COUNT 10.2 10*3/uL (4.8-10.8)
[2017-08-12 06:32] LABS: CREATININE 1.91 mg/dL (0.55-1.02); POTASSIUM 5.4 mmol/L (3.5-5.1)
[2017-08-12 07:10] LABS: INTERNATIONAL NORM RATIO 3.8 (2.0-3.5)
[2017-08-12 08:00] VITALS: BP 124/62
--- NOTE | 2017-08-12 08:10 | NUR ---
PT SITTING UP IN BED, ALERT ORIENTED AND PLEASANT. NO S/S OF PAIN OR DISTRESS. VITALS WNL. RESPIRATIONS EASY AND UNLABORED. ALL AM MEDICATIONS TAKEN WITH EASE. ENCOURGED USE OF CALL LIGHT FOR NEEDS/QUESTIONS.
[2017-08-12] MEDS ORDERED: LISINOPRIL2.5 MG PO (08:17)
[2017-08-12] MEDS ORDERED: CLINDAMYCIN HC300 MG PO (08:18)
--- NOTE | 2017-08-12 08:18 | NUR ---
LAB NOTIFIED THIS NURSE OF CRITICAL LAB VALUE OF BLOOD CULTURES FROM 08/[address] [facility]. GUERRA NOTIFIED AND NO NEW ORDERS AT THIS TIME.
--- NOTE | 2017-08-12 10:30 | NUR ---
PT SITTING UP IN BED, ALERT ORIENTED AND PLEASANT. RESPIRATIONS EASY. ALL MEDICATIONS RUNNING THROUGH SYRINGE PUMP WITH EASE. IV SITE PATENT, DRESSING DRY AND IN TACT. NO COMPLAINTS VOICED AT THIS TIME.
--- NOTE | 2017-08-12 12:28 | NUR ---
Nutritional Support Services Note: Discussing with pt 1800cal diabetic diet. Diet copy declined. States she has been consulted before. Encouraged follow up if needed. Riri Baker
--- NOTE | 2017-08-12 14:26 | NUR ---
Discharge instructions reviewed with patient/family. Patient receptive and verbalizes understanding. Follow-up care arranged. Written instructions given to patient/family. PRITESH CESAR
== END 2017-08-12 14:26 | disposition home or self-care (01) | DRG 602 ==
LOC: ED 21:21 → EDHOLD 22:31 → 4E 22:31
PROVIDERS: Emergency Medicine Emergency Medical Services; Internal Medicine; ADMIT Internal Medicine
DX: L03.116 Cellulitis of left lower limb (principal); N17.0 Acute kidney failure with tubular necrosis; D68.51 Activated protein C resistance; E11.22 Type 2 diabetes mellitus with diabetic chronic kidney disease; R78.81 Bacteremia; E66.01 Morbid (severe) obesity due to excess calories; I50.30 Unspecified diastolic (congestive) heart failure; I13.0 Hypertensive heart and chronic kidney disease with heart failure and stage 1 through stage 4 chronic kidney disease, or unspecified chronic kidney disease; N18.4 Chronic kidney disease, stage 4 (severe); Z68.44 Body mass index [BMI] 60.0-69.9, adult; E87.5 Hyperkalemia; L03.115 Cellulitis of right lower limb; I48.2 Chronic atrial fibrillation; F41.1 Generalized anxiety disorder; J44.9 Chronic obstructive pulmonary disease, unspecified; D50.9 Iron deficiency anemia, unspecified; B95.62 Methicillin resistant Staphylococcus aureus infection as the cause of diseases classified elsewhere; G89.29 Other chronic pain; M54.5 Low back pain; Z96.41 Presence of insulin pump (external) (internal); Z88.1 Allergy status to other antibiotic agents; Z79.4 Long term (current) use of insulin; Z79.899 Other long term (current) drug therapy; Z88.2 Allergy status to sulfonamides; Z91.048 Other nonmedicinal substance allergy status; Z90.49 Acquired absence of other specified parts of digestive tract; Z98.51 Tubal ligation status; Z98.49 Cataract extraction status, unspecified eye; Z82.49 Family history of ischemic heart disease and other diseases of the circulatory system; Z83.3 Family history of diabetes mellitus; Z80.8 Family history of malignant neoplasm of other organs or systems

== ENCOUNTER 2017-09-23 15:16 | Emergency (ER) | payer OTHER ==
[~2017-09-23] VITALS: Ht 175.2 cm; Wt 181.4 kg
[~2017-09-23 15:16] MED LIST changes: +GLUCOTROL10 MG PO; +LISINOPRIL2.5 MG PO
[2017-09-23 15:38] VITALS: BP 140/70
[2017-09-23 16:09] LABS: BASO % 0.3 % (0.0-1.0); EOS # 0.2 10*3/uL (0.0-0.4); EOS % 1.5 % (1.0-4.0); HEMATOCRIT 31.3 % (37.0-47.0); HEMOGLOBIN 8.9 g/dl (12.0-16.0); LYMPH # 1.5 10*3/uL (1.3-4.4); LYMPH % 13.3 % (27.0-41.0); MEAN CELL VOLUME 86.7 fl (81.0-99.0); MEAN CORPUSCULAR HGB 24.7 pg (27.0-31.0); MEAN CORPUSCULAR HGB CONC 28.4 g/dl (33.0-37.0); MEAN PLATELET VOLUME 8.1 fl (9.6-12.3); MONO # 0.6 10*3/uL (0.1-1.0); MONO % 5.6 % (3.0-9.0); NEUT # 8.8 10*3/uL (2.3-7.9); NEUT % 78.9 % (47.0-73.0); PLATELET COUNT AUTOMATED 253 10*3/uL (130-400); RED BLOOD COUNT 3.61 10*6/uL (4.10-5.10); RED CELL DISTRI WIDTH 18.2 % (0-14.5); WHITE BLOOD COUNT 11.2 10*3/uL (4.8-10.8)
[2017-09-23 16:25] LABS: ALBUMIN 3.2 gm/dl (3.1-4.5); ALKALINE PHOSPHATASE 89 U/L (45-117); BUN 38 mg/dl (7-24); CHLORIDE 102 mmol/L (98-107); CREATININE 1.56 mg/dL (0.55-1.02); POTASSIUM 5.2 mmol/L (3.5-5.1); SGOT/AST 11 IU/L (3-35); SGPT/ALT 21 U/L (12-78); SODIUM 141 mmol/L (136-145); TOTAL PROTEIN 7.5 gm/dL (6.4-8.2)
[2017-09-23 16:26] LABS: TROPONIN I < 0.015 ng/ml (<0.045)
[2017-09-23 17:25] LABS: ACT PARTIAL THROMBO TIME 33.2 SECONDS (20.8-31.5); INTERNATIONAL NORM RATIO 1.8 (2.0-3.5)
== END 2017-09-23 17:37 | disposition home or self-care (01) ==
LOC: ED 15:16
PROVIDERS: Nurse Practitioner Family
DX: R11.2 Nausea with vomiting, unspecified (principal); R06.02 Shortness of breath; E11.22 Type 2 diabetes mellitus with diabetic chronic kidney disease; N18.4 Chronic kidney disease, stage 4 (severe); I50.9 Heart failure, unspecified; E11.65 Type 2 diabetes mellitus with hyperglycemia; J44.9 Chronic obstructive pulmonary disease, unspecified; Z90.49 Acquired absence of other specified parts of digestive tract; Z98.51 Tubal ligation status; Z98.890 Other specified postprocedural states; Z79.01 Long term (current) use of anticoagulants; Z79.899 Other long term (current) drug therapy; Z88.1 Allergy status to other antibiotic agents; Z88.2 Allergy status to sulfonamides; Z79.4 Long term (current) use of insulin; Z99.81 Dependence on supplemental oxygen

== ENCOUNTER 2017-12-22 13:27 | Inpatient (IN) | payer OTHER ==
[~2017-12-22] VITALS: Ht 175.3 cm; Wt 187.0 kg
--- NOTE | ~2017-12-22 | DS ---
[place], [place] DISCHARGE SUMMARY NAME: RIRI PETERSON UNIT #: [id number] ROOM: 506 DOCTOR: GILBERTO GUERRA MD BIRTHDATE: [birth year] DOS: 12/25/2017 HOSPITAL COURSE: This patient is 52-year-old. The patient is very well known to us, presents to the office with complaints of increasing shortness of breath and leg edema. Please refer to H and P for details. The patient was admitted and was diagnosed with acute diastolic CHF by chest x-ray and clinically. The patient was admitted and she was started on IV diuretics, breathing treatments, oxygen supplementation with improvement in her breathing and leg edema. Chest x-ray was done, which showed resolution of the CHF. She does have underlying renal insufficiency. Her kidney functions are fairly stable without any further deterioration, so the plan therefore is to discharge her to home today, follow up as an outpatient. The last labs from this morning show BUN of 49, creatinine 1.69 with GFR of 32. DISCHARGE MEDICATIONS: Oxycodone 10 q. 6 hours, Xanax 0.5 t.i.d. p.r.n., NovoLog with insulin pen, oxygen titrate 3 liters, warfarin 7 mg daily, Coreg 12.5 b.i.d., lisinopril 2.5 daily, glipizide 10 daily, Advair 500 twice a day, gabapentin 300 b.i.d., omeprazole 20 daily, ammonia lactate cream for local application, warfarin 4 mg twice a week and Bumex was increased to 2 mg twice daily. GILBERTO GUERRA MD CM:DISCHARG 0813 [id number] GILBERTO GUERRA MD 12/25/17 1309 interface
--- NOTE | ~2017-12-22 | WRIGHTHP ---
[place], [place] PATIENT HISTORY AND PHYSICAL EXAM NAME: RIRI PETERSON UNIT #: [id number] ROOM: 506 DOCTOR: CHARLIE SEPULVEDAGILBERTO BIRTHDATE: [birth year] DOS: 12/22/2017 HISTORY OF PRESENT ILLNESS: The patient is 52-year-old. The patient is very well known to us. The patient comes in with complaints of increasing shortness of breath and increased leg edema. Her saturation was 89% on 2 liters, so was admitted with diagnosis of acute diastolic CHF The patient does not have any chest pains or palpitations, does not have any fever or chills, does not have any abdominal pain, nausea, any emesis. She states that she has been watching her diet. PAST MEDICAL HISTORY: Significant for: 1. Multiple admissions for diastolic CHF. 2. Benign hypertension. 3. Morbid obesity. 4. History of DVT with Factor V Leiden mutation. 5. Chronic low back pain. 6. Chronic obstructive lung disease. MEDICATIONS: She is on Advair 500 twice daily, oxygen, Xanax 0.5 t.i.d., Bumex 2 mg daily, Coreg 12.5 b.i.d., glipizide 10 daily, gabapentin 300 b.i.d., lisinopril 2.5 daily, omeprazole 20 daily, oxycodone 10 q. 6 hours, warfarin 4 mg daily and 7 mg on Tuesdays and Wednesdays, insulin pump. SOCIAL HISTORY: Nonsmoker, does not use any alcohol. Lives at home. PHYSICAL EXAMINATION: GENERAL: The patient is awake and alert and oriented. VITAL SIGNS: Blood pressure is 127/48, pulse of 72, respirations 20, temperature 98.1. LUNGS: Diminished breath sounds. HEART: Regular. ABDOMEN: Obese. EXTREMITIES: About 3+ pitting edema. ASSESSMENT AND PLAN: 1. Acute diastolic congestive heart failure. The patient will be admitted. IV diuretics added. 2. Hypoxic respiratory failure, on oxygen, should improve with diuresis. 3. Type 2 diabetes mellitus, on insulin. Continue insulin pump. 4. Morbid obesity. Advised on weight loss. [place], [place] PATIENT HISTORY AND PHYSICAL EXAM NAME: RIRI PETERSON UNIT #: [id number] ROOM: 506 DOCTOR: GILBERTO GUERRA MD BIRTHDATE: [birth year] GILBERTO GUERRA MD CM:HISPHYS:PATIENT HISTORY AND PHYSICAL EXAMINATION 0 9 GILBERTO GUERRA MD 12/23/17 0939 interface
--- NOTE | ~2017-12-22 | PR ---
[place], [place] PROGRESS NOTE NAME: RIRI PETERSON UNIT #: [id number] ROOM: 506 DOCTOR: GILBERTO GUERRA MD BIRTHDATE: [birth year] DOS: SUBJECTIVE: The patient is doing fine without any complaints this morning. OBJECTIVE: VITAL SIGNS: Graphic trend shows a pressure 100/44, pulse of 64, respirations 20, temperature ____. LUNGS: Diminished breath sounds, clear. HEART: Regular. ABDOMEN: Obese, soft, nontender. EXTREMITIES: Without any edema. LABORATORY DATA: White cell count 11.7, hemoglobin 8.8, hematocrit 31.1. BMP: Glucose 96, BUN 49, creatinine 1.69, sodium 141, potassium 4.5, chloride 101, bicarbonate 33. Chest x-ray shows improved CHF. ASSESSMENT AND PLAN: 1. Acute diastolic congestive heart failure, improved with diuretics. 2. Hypoxic respiratory failure, acute. 3. Saturations have improved. PLAN: Plan is to discharge her to home today. Follow up as an outpatient. She does have chronic kidney disease stage 3. We will continue to follow the labs as an outpatient since her diuretic dosage has been increased. GILBERTO GUERRA MD CM:PNTRANS [id number] GILBERTO GUERRA MD 12/25/17 2219 interface
--- NOTE | ~2017-12-22 | PR ---
[place], [place] PROGRESS NOTE NAME: RIRI PETERSON UNIT #: [id number] ROOM: 506 DOCTOR: GILBERTO GUERRA MD BIRTHDATE: [birth year] DOS: SUBJECTIVE: The patient is feeling much better. OBJECTIVE: VITAL SIGNS: Blood pressure is 110/50, pulse of 73, respirations 18, temperature 98.2. LUNGS: Diminished breath sounds, clear this morning. HEART: Regular. ABDOMEN: Obese. EXTREMITIES: Without any edema. LABORATORY DATA: Protime is 20.31, INR 1.9. WBC count is 11.6, hemoglobin 8.6, hematocrit 30.5, platelets 267. BMP: Glucose 76, BUN 50, creatinine 1.68, sodium 141, potassium 4.6, chloride 103, bicarbonate 33. ASSESSMENT AND PLAN: 1. Acute diastolic congestive heart failure, clinically improving. Repeat chest x-ray will be ordered. 2. Chronic kidney disease, on diuretics. Kidney functions do not look any different from before. We will go ahead and arrange for labs in the morning and if it is okay, the plan is to discharge to home in the morning. GILBERTO GUERRA MD CM:PNTRANS [id number] 1002 GILBERTO GUERRA MD 12/24/17 1002 interface
[2017-12-22 13:40] VITALS: BP 153/53
[2017-12-22 16:00] VITALS: BP 128/54
[2017-12-22 17:28] LABS: BASO # 0.1 10*3/uL (0.0-0.1); BASO % 0.5 % (0.0-1.0); EOS # 0.2 10*3/uL (0.0-0.4); EOS % 1.5 % (1.0-4.0); HEMATOCRIT 33.3 % (37.0-47.0); HEMOGLOBIN 9.6 g/dl (12.0-16.0); MEAN CELL VOLUME 80.4 fl (81.0-99.0); MEAN CORPUSCULAR HGB 23.2 pg (27.0-31.0); MEAN CORPUSCULAR HGB CONC 28.8 g/dl (33.0-37.0); MEAN PLATELET VOLUME 8.3 fl (9.6-12.3); MONO # 0.7 10*3/uL (0.1-1.0); MONO % 5.7 % (3.0-9.0); NEUT # 9.4 10*3/uL (2.3-7.9); NEUT % 75.9 % (47.0-73.0); PLATELET COUNT AUTOMATED 278 10*3/uL (130-400); RED BLOOD COUNT 4.14 10*6/uL (4.10-5.10); RED CELL DISTRI WIDTH 17.3 % (0-14.5); WHITE BLOOD COUNT 12.4 10*3/uL (4.8-10.8)
[2017-12-22] MEDS ORDERED: NEURONTIN300 MG PO (19:06)
[2017-12-22] MEDS ORDERED: OMEPRAZOLE D/R20 MG PO (19:08)
[2017-12-22] MEDS ORDERED: AMMONIUM LACTA385 GM T (19:09)
[2017-12-22] MEDS ORDERED: COUMADIN4 M2 PO (19:11)
[2017-12-22 20:00] VITALS: BP 141/53
[2017-12-23] VITALS: BP 107/49
[2017-12-23 06:27] LABS: BASO # 0.1 10*3/uL (0.0-0.1); BASO % 0.4 % (0.0-1.0); EOS # 0.2 10*3/uL (0.0-0.4); EOS % 2.1 % (1.0-4.0); HEMATOCRIT 32.2 % (37.0-47.0); HEMOGLOBIN 9.3 g/dl (12.0-16.0); LYMPH # 1.8 10*3/uL (1.3-4.4); LYMPH % 16.4 % (27.0-41.0); MEAN CELL VOLUME 79.9 fl (81.0-99.0); MEAN CORPUSCULAR HGB 23.1 pg (27.0-31.0); MEAN CORPUSCULAR HGB CONC 28.9 g/dl (33.0-37.0); MEAN PLATELET VOLUME 8.7 fl (9.6-12.3); MONO # 0.8 10*3/uL (0.1-1.0); MONO % 7.2 % (3.0-9.0); NEUT # 8.2 10*3/uL (2.3-7.9); NEUT % 73.5 % (47.0-73.0); PLATELET COUNT AUTOMATED 270 10*3/uL (130-400); RED BLOOD COUNT 4.03 10*6/uL (4.10-5.10); RED CELL DISTRI WIDTH 17.3 % (0-14.5); WHITE BLOOD COUNT 11.1 10*3/uL (4.8-10.8)
[2017-12-23 08:00] VITALS: BP 127/48
[2017-12-23 12:00] VITALS: BP 137/62
[2017-12-23 16:00] VITALS: BP 120/48
[2017-12-23 20:00] VITALS: BP 104/45
[2017-12-24] VITALS: BP 110/50
[2017-12-24 06:54] LABS: BASO % 0.3 % (0.0-1.0); EOS # 0.2 10*3/uL (0.0-0.4); EOS % 2.1 % (1.0-4.0); HEMATOCRIT 30.5 % (37.0-47.0); HEMOGLOBIN 8.6 g/dl (12.0-16.0); LYMPH # 1.7 10*3/uL (1.3-4.4); LYMPH % 15.1 % (27.0-41.0); MEAN CELL VOLUME 81.6 fl (81.0-99.0); MEAN CORPUSCULAR HGB CONC 28.2 g/dl (33.0-37.0); MEAN PLATELET VOLUME 8.8 fl (9.6-12.3); MONO # 0.7 10*3/uL (0.1-1.0); MONO % 5.9 % (3.0-9.0); NEUT # 8.8 10*3/uL (2.3-7.9); NEUT % 76.3 % (47.0-73.0); PLATELET COUNT AUTOMATED 267 10*3/uL (130-400); RED BLOOD COUNT 3.74 10*6/uL (4.10-5.10); RED CELL DISTRI WIDTH 17.4 % (0-14.5); WHITE BLOOD COUNT 11.6 10*3/uL (4.8-10.8)
[2017-12-24 07:05] LABS: INTERNATIONAL NORM RATIO 1.9 (2.0-3.5)
[2017-12-24 07:27] LABS: CREATININE 1.68 mg/dL (0.55-1.02); POTASSIUM 4.6 mmol/L (3.5-5.1)
[2017-12-24 08:00] VITALS: BP 127/45
[2017-12-24 12:00] VITALS: BP 122/51
[2017-12-24 16:00] VITALS: BP 132/51
[2017-12-24 20:00] VITALS: BP 119/41
[2017-12-25] VITALS: BP 100/44; BP 114/63
[2017-12-25 06:25] LABS: BASO % 0.3 % (0.0-1.0); EOS # 0.2 10*3/uL (0.0-0.4); HEMATOCRIT 31.1 % (37.0-47.0); HEMOGLOBIN 8.8 g/dl (12.0-16.0); LYMPH # 1.9 10*3/uL (1.3-4.4); MEAN CORPUSCULAR HGB 22.9 pg (27.0-31.0); MEAN CORPUSCULAR HGB CONC 28.3 g/dl (33.0-37.0); MEAN PLATELET VOLUME 8.6 fl (9.6-12.3); MONO # 0.8 10*3/uL (0.1-1.0); MONO % 6.8 % (3.0-9.0); NEUT # 8.7 10*3/uL (2.3-7.9); NEUT % 74.5 % (47.0-73.0); PLATELET COUNT AUTOMATED 253 10*3/uL (130-400); RED BLOOD COUNT 3.84 10*6/uL (4.10-5.10); RED CELL DISTRI WIDTH 17.3 % (0-14.5); WHITE BLOOD COUNT 11.7 10*3/uL (4.8-10.8)
[2017-12-25 06:48] LABS: CREATININE 1.69 mg/dL (0.55-1.02); POTASSIUM 4.5 mmol/L (3.5-5.1)
[2017-12-25 08:00] VITALS: BP 126/50
[2017-12-25] MEDS ORDERED: BUMETANIDE2 MG PO (08:09)
== END 2017-12-25 09:21 | disposition home or self-care (01) | DRG 291 ==
LOC: 5E 13:27
PROVIDERS: Internal Medicine
DX: I13.0 Hypertensive heart and chronic kidney disease with heart failure and stage 1 through stage 4 chronic kidney disease, or unspecified chronic kidney disease (principal); J96.01 Acute respiratory failure with hypoxia; I50.31 Acute diastolic (congestive) heart failure; Z68.44 Body mass index [BMI] 60.0-69.9, adult; E66.01 Morbid (severe) obesity due to excess calories; M54.5 Low back pain; E11.22 Type 2 diabetes mellitus with diabetic chronic kidney disease; G89.29 Other chronic pain; J44.9 Chronic obstructive pulmonary disease, unspecified; N18.3 Chronic kidney disease, stage 3 (moderate); Z86.718 Personal history of other venous thrombosis and embolism; Z79.899 Other long term (current) drug therapy; Z79.4 Long term (current) use of insulin

== ENCOUNTER 2018-01-10 19:34 | Inpatient (IN) | payer OTHER ==
[~2018-01-10] VITALS: Ht 162.5 cm; Wt 185.7 kg
[2018-01-10] VITALS (7 sets, daily range): BP systolic 117–143; BP diastolic 34–73
--- NOTE | ~2018-01-10 | EKG ---
[place], [place] ELECTROCARDIOGRAM REPORT NAME: RIRI PETERSON UNIT #: [id number] ROOM: 512 DOCTOR: QUENTIN DEVLIN MD BIRTHDATE: [birth year] DOS: 01/10/2018 TIME: 2007 hours. FINDINGS: 1. Normal sinus rhythm at 63 beats per minute. 2. Minimal ST segment depression in inferior leads and V6. 3. No previous tracing is available for comparison. QUENTIN DEVLIN MD CM:EKGRPT:ELECTROCARDIOGRAM REPORT [id number] QUENTIN DEVLIN MD
--- NOTE | ~2018-01-10 | CON ---
[place], [place] REPORT OF CONSULTATION NAME: RIRI PETERSON UNIT #: [id number] ROOM: 512 DOCTOR: QUENTIN DEVLIN MD BIRTHDATE: [birth year] DOS: 01/11/2018 HISTORY OF PRESENT ILLNESS: This is a 52-year-old -[place] woman with a history of essential hypertension, extreme obesity, chronic kidney disease, type 2 diabetes mellitus, COPD, chronic respiratory failure, obstructive sleep apnea and has not been able to use a CPAP. She also had chronic diastolic heart failure many years ago. She was admitted and was diuresed of enormous amount of fluid. She had remained well. She had showed increasing shortness of breath and her O2 saturation dropped to the 70s. She has not had any cough, any fever or chills or shivering. No chest pain or palpitations. Swelling of the legs has not gotten any worse and she has been taking her medications regularly. She quit smoking 20 years ago. Does not use alcoholic beverages. HOME MEDICATIONS: Advair, oxygen 3 liters per minute, bumetanide 2 mg b.i.d., carvedilol 25 b.i.d., lisinopril 2.5 mg daily, oxycodone, warfarin 7 mg daily. She is on glipizide 10 mg daily, NovoLog insulin, and alprazolam 0.5 mg t.i.d. p.r.n. PHYSICAL EXAMINATION: GENERAL: Reveals a patient who is very obese. She is sitting in a recliner. She has oxygen on and is mildly tachypneic. Her complexion is a little pale. She is not cyanotic, not jaundiced. There is no thyromegaly or finger clubbing. VITAL SIGNS: Pulse is irregular at 76 beats per minute, blood pressure 131/47. NECK: JVP is normal. AJR is negative. LUNGS: Breath sounds are diminished bilaterally with some crackles on the right side. EXTREMITIES: She has large legs with very little pitting edema. Chest x-ray did not show any pulmonary congestion, or edema. LABORATORY DATA: BUN is 53, creatinine 1.74, magnesium 2.5, potassium 5.0. Troponin I is less than 0.015. Hemoglobin is 9.9 g/dL. IMPRESSION: 1. This patient who has normal LV systolic function, has chronic diastolic heart failure, which I think clinically is adequately compensated. Chest x-ray did not show any pulmonary edema. 2. Chronic kidney disease, probably because of use of diuretic, which she really needs. 3. Chronic respiratory failure. There may be some bronchospasm that made her things worse. RECOMMENDATIONS: Current cardiac medication be continued including the diuretic. I thank you for this consult. [place], [place] REPORT OF CONSULTATION NAME: RIRI PETERSON UNIT #: [id number] ROOM: 512 DOCTOR: QUENTIN DEVLIN MD BIRTHDATE: [birth year] QUENTIN DEVLIN MD CM:CONSTR:REPORT OF CONSULTATION 0940 01/11/18 1113 interface GILBERTO GUERRA MD
--- NOTE | ~2018-01-10 | PR ---
[place], [place] PROGRESS NOTE NAME: RIRI PETERSON UNIT #: [id number] ROOM: 512 DOCTOR: GILBERTO GUERRA MD BIRTHDATE: [birth year] DOS: 01/12/2018 SUBJECTIVE: The patient is feeling good and is not having any complaints. Her leg swelling is improved. I appreciate both consultants' input. OBJECTIVE: VITAL SIGNS: Blood pressure is 111/56, pulse is 69, respirations 20, temperature 98.0. LUNGS: Clear. HEART: Regular. ABDOMEN: Obese, soft. EXTREMITIES: Decreased edema. LABORATORY DATA: Protime was 2.8 this morning. BMP: Glucose 85, BUN 55, creatinine 1.90, sodium 139, potassium 4.6, chloride 101, bicarbonate 34. Phosphorus 5.3. WBC count is 12.2, hemoglobin 8.9, hematocrit 32.0. Urine culture, 25,000 colonies light gram-negative bacteria. Ultrasound of the kidney shows renal cortical thinning, but no hydronephrosis was noted. ASSESSMENT AND PLAN: 1. Acute diastolic congestive heart failure, improving clinically. We will plan to discharge her to home today. 2. 25,000 colonies of light gram-negative bacteria. The patient was placed on Ceftin. 3. Chronic kidney disease, stable with kidney functions unchanged from previous admission. 4. Hyperphosphatemia. PhosLo will be given for 5 days. The patient is stable and can be discharged to follow up as an outpatient. GILBERTO GUERRA MD CM:PNTRANS 0841 GILBERTO GUERRA MD 01/12/18 0931 interface
--- NOTE | ~2018-01-10 | WRIGHTHP ---
[place], [place] PATIENT HISTORY AND PHYSICAL EXAM NAME: RIRI PETERSON UNIT #: [id number] ROOM: 512 DOCTOR: GILBERTO GUERRA MD BIRTHDATE: [birth year] DOS: 01/11/2018 HISTORY OF PRESENT ILLNESS: The patient is 52 years old. The patient comes in with complaints of increasing difficulty breathing. Her oxygen level was dropping to the 70s while on oxygen, so she was brought to the Emergency Room. She denies having any fever, chills, any chest pains or palpitations, not have any abdominal pain, nausea, any emesis. PAST MEDICAL HISTORY: Significant for: 1. Last hospitalization last month with diastolic congestive heart failure. 2. Chronic back pain. 3. Factor V Leiden mutation. 4. Morbid obesity. 5. Obstructive lung disease with chronic respiratory failure. MEDICATIONS: She is currently on are oxycodone, oxygen, Xanax 2.5 t.i.d., Bumex 2 mg b.i.d., Coreg 12.5 b.i.d., gabapentin 300 b.i.d., glipizide 10 daily, lisinopril 2.5 daily, warfarin. SOCIAL HISTORY: Nonsmoker, does not use any alcohol. Lives at home. She has 2 grown daughters. PHYSICAL EXAMINATION: GENERAL: The patient is awake and alert and oriented. VITAL SIGNS: Graphic trend shows pressure 132/70, pulse of 76, respirations 14, afebrile. LUNGS: Diminished breath sounds. No wheezes, rales or rhonchi heard. Very diminished air entry. HEART: Regular. ABDOMEN: Obese. EXTREMITIES: About 1+ pitting edema bilaterally, which is chronic. Some discoloration on the pretibial area noticed bilaterally, which is also chronic. ASSESSMENT AND PLAN: 1. Acute diastolic congestive heart failure, patient has been admitted for IV diuretics. Dr. Lal has been consulted. Echocardiogram has been ordered. 2. Type 2 diabetes mellitus, insulin-dependent. The patient uses insulin pump. Capillary blood sugars to be checked and diet will be ADA. 3. Chronic kidney disease. We will ask Dr. Cardenas's group for an opinion. Kidney functions are fairly stable compared to her last basic metabolic panel a month ago. 4. Long-term use of anticoagulants. Protime is elevated. We will hold off on Coumadin today. [place], [place] PATIENT HISTORY AND PHYSICAL EXAM NAME: RIRI PETERSON UNIT #: [id number] ROOM: 512 DOCTOR: GILBERTO GUERRA MD BIRTHDATE: [birth year] GILBERTO GUERRA MD CM:HISPHYS:PATIENT HISTORY AND PHYSICAL EXAMINATION [id number] GILBERTO GUERRA MD 01/11/18 1553 interface
[~2018-01-10 19:34] MED LIST changes: +AMMONIUM LACTA385 GM T; +OMEPRAZOLE D/R20 MG PO
[2018-01-10 20:31] LABS: BASO # 0.1 10*3/uL (0.0-0.1); BASO % 0.3 % (0.0-1.0); EOS # 0.3 10*3/uL (0.0-0.4); EOS % 2.2 % (1.0-4.0); HEMATOCRIT 34.5 % (37.0-47.0); HEMOGLOBIN 9.9 g/dl (12.0-16.0); LYMPH # 2.3 10*3/uL (1.3-4.4); LYMPH % 16.1 % (27.0-41.0); MEAN CELL VOLUME 80.2 fl (81.0-99.0); MEAN CORPUSCULAR HGB CONC 28.7 g/dl (33.0-37.0); MEAN PLATELET VOLUME 8.9 fl (9.6-12.3); MONO # 0.7 10*3/uL (0.1-1.0); MONO % 5.1 % (3.0-9.0); NEUT # 10.9 10*3/uL (2.3-7.9); NEUT % 75.8 % (47.0-73.0); PLATELET COUNT AUTOMATED 331 10*3/uL (130-400); RED CELL DISTRI WIDTH 18.4 % (0-14.5); WHITE BLOOD COUNT 14.4 10*3/uL (4.8-10.8)
[2018-01-10 20:42] LABS: INTERNATIONAL NORM RATIO 3.8 (2.0-3.5)
[2018-01-10 20:49] LABS: ALBUMIN 3.4 gm/dl (3.1-4.5); ALKALINE PHOSPHATASE 101 U/L (45-117); BUN 53 mg/dl (7-24); CHLORIDE 100 mmol/L (98-107); CREATININE 1.74 mg/dL (0.55-1.02); SGOT/AST 10 IU/L (3-35); SGPT/ALT 14 U/L (12-78); SODIUM 138 mmol/L (136-145); TOTAL PROTEIN 7.6 gm/dL (6.4-8.2)
[2018-01-10 20:50] LABS: TROPONIN I < 0.015 ng/ml (<0.045)
[2018-01-10 21:21] LABS: BILIRUBIN NEGATIVE (NEGATIVE); BLOOD 1+ (NEGATIVE); CLARITY SL CLOUDY (CLEAR); COLOR YELLOW (YELLOW); GLUCOSE NEGATIVE (NEGATIVE); KETONE NEGATIVE (NEGATIVE); LEUKO ESTERASE TRACE (NEGATIVE); NITRITE NEGATIVE (NEGATIVE); PH 5.5 (5.0-9.0); SPECIFIC GRAVITY 1.015 (1.005-1.030); UROBILINOGEN 0.2 E.U./dl (0.2-1.0)
[2018-01-10 21:29] LABS: BACTERIA 4+
[2018-01-10 21:32] LABS: RBC 16-20 rbc/hpf (0-2)
[2018-01-11] VITALS: BP 143/47
[2018-01-11 08:00] VITALS: BP 131/47
[2018-01-11 12:00] VITALS: BP 134/48
[2018-01-11 16:00] VITALS: BP 130/46
[2018-01-11 20:00] VITALS: BP 105/39; BP 120/64
[2018-01-12] VITALS: BP 111/56
[2018-01-12 07:03] LABS: BASO % 0.3 % (0.0-1.0); EOS # 0.3 10*3/uL (0.0-0.4); HEMOGLOBIN 8.9 g/dl (12.0-16.0); LYMPH # 1.8 10*3/uL (1.3-4.4); LYMPH % 14.9 % (27.0-41.0); MEAN CELL VOLUME 82.3 fl (81.0-99.0); MEAN CORPUSCULAR HGB 22.9 pg (27.0-31.0); MEAN CORPUSCULAR HGB CONC 27.8 g/dl (33.0-37.0); MEAN PLATELET VOLUME 8.5 fl (9.6-12.3); MONO # 0.8 10*3/uL (0.1-1.0); MONO % 6.1 % (3.0-9.0); NEUT # 9.3 10*3/uL (2.3-7.9); NEUT % 76.4 % (47.0-73.0); PLATELET COUNT AUTOMATED 260 10*3/uL (130-400); RED BLOOD COUNT 3.89 10*6/uL (4.10-5.10); RED CELL DISTRI WIDTH 18.1 % (0-14.5); WHITE BLOOD COUNT 12.2 10*3/uL (4.8-10.8)
[2018-01-12 07:21] LABS: CREATININE 1.9 mg/dL (0.55-1.02); PHOSPHOROUS 5.3 mg/dL (2.5-4.9); POTASSIUM 4.6 mmol/L (3.5-5.1)
[2018-01-12 07:25] LABS: INTERNATIONAL NORM RATIO 2.8 (2.0-3.5)
[2018-01-12 08:00] VITALS: BP 99/62
[2018-01-12] MEDS ORDERED: XARELTO20 M1 PO (08:43)
[2018-01-12] MEDS ORDERED: CEFUROXIME AXE250 MG PO (08:43)
[2018-01-12] MEDS ORDERED: CALCIUM ACETAT667 MG PO (08:45)
== END 2018-01-12 10:23 | disposition home health service (06) | DRG 291 ==
LOC: ED 19:34 → EDHOLD 22:20 → 5E 22:20
PROVIDERS: Emergency Medicine Emergency Medical Services; Internal Medicine
DX: I13.0 Hypertensive heart and chronic kidney disease with heart failure and stage 1 through stage 4 chronic kidney disease, or unspecified chronic kidney disease (principal); I50.33 Acute on chronic diastolic (congestive) heart failure; J96.10 Chronic respiratory failure, unspecified whether with hypoxia or hypercapnia; D68.9 Coagulation defect, unspecified; E11.22 Type 2 diabetes mellitus with diabetic chronic kidney disease; N18.3 Chronic kidney disease, stage 3 (moderate); E66.01 Morbid (severe) obesity due to excess calories; E83.39 Other disorders of phosphorus metabolism; N39.0 Urinary tract infection, site not specified; Z68.45 Body mass index [BMI] 70 or greater, adult; T45.515A Adverse effect of anticoagulants, initial encounter; Z79.01 Long term (current) use of anticoagulants; M54.9 Dorsalgia, unspecified; G89.29 Other chronic pain; B96.89 Other specified bacterial agents as the cause of diseases classified elsewhere; J44.9 Chronic obstructive pulmonary disease, unspecified; D64.9 Anemia, unspecified; Z83.3 Family history of diabetes mellitus; Z84.1 Family history of disorders of kidney and ureter; Z88.2 Allergy status to sulfonamides; Z88.1 Allergy status to other antibiotic agents; Z88.8 Allergy status to other drugs, medicaments and biological substances; Z79.899 Other long term (current) drug therapy; Y92.89 Other specified places as the place of occurrence of the external cause; Z90.49 Acquired absence of other specified parts of digestive tract; Z98.51 Tubal ligation status; Z98.49 Cataract extraction status, unspecified eye; Z82.49 Family history of ischemic heart disease and other diseases of the circulatory system; Z80.9 Family history of malignant neoplasm, unspecified

== ENCOUNTER 2018-02-08 19:31 | Inpatient (IN) | payer OTHER ==
[~2018-02-08] VITALS: Ht 175.2 cm; Wt 191.2 kg
--- NOTE | ~2018-02-08 | WRIGHTHP ---
[place], [place] PATIENT HISTORY AND PHYSICAL EXAM NAME: RIRI PETERSON UNIT #: [id number] ROOM: 421 DOCTOR: GILBERTO GUERRA MD BIRTHDATE: [birth year] DOS: 02/08/2018 HISTORY OF PRESENT ILLNESS: This patient is 52 years old. Visiting nurses were seeing her yesterday, stated that her legs were extremely swollen and she was short of breath and so was asked to come to the emergency room. She was evaluated in the ER, was admitted. She denies having any complaints of chest pains or palpitations. The patient was admitted during the night and this morning, the patient continues to have increased leg edema. Denies having any chest pains or palpitations. PAST MEDICAL HISTORY: Significant for: 1. Chronic diastolic congestive heart failure. 2. Chronic back pain. 3. Factor V Leiden mutation. 4. Morbid obesity. 5. Obstructive lung disease. 6. Chronic respiratory failure, oxygen dependent. 7. Type 2 diabetes. MEDICATIONS: She is on are Xanax, oxycodone, Bumex, Coreg, gabapentin, glipizide, lisinopril, Xarelto. PHYSICAL EXAMINATION: GENERAL: The patient is morbidly obese. VITAL SIGNS: Graphic trend shows a pressure of 146/58, pulse of 73, respirations 20, temperature 97.7. LUNGS: Diminished breath sounds. HEART: Regular. ABDOMEN: Obese. EXTREMITIES: About 3+ pitting edema bilaterally. LABORATORY DATA: Shows a white cell count of 13.2, hemoglobin 8.7, hematocrit 30.9, platelets 269. Lactic acid 0.9. Comprehensive glucose 126, BUN 40, creatinine 1.7. Electrolytes normal. ASSESSMENT AND PLAN: 1. Acute diastolic congestive heart failure with leg edema. The patient is placed on IV diuretics. 2. Morbid obesity which is causing the current situation that she is in. Advised weight loss or bariatric surgery, which she had declined in the past. 3. Factor V Leiden mutation, on chronic anticoagulation, on Xarelto now. 4. Type 2 diabetes. Blood sugars are fairly controlled on insulin drip that she is on at home. 5. Anemia. Check ferritin and iron, may require Procrit. 6. Chronic kidney disease stage 3. Relatively stable. Continue following that with the diuretic dosage. [place], [place] PATIENT HISTORY AND PHYSICAL EXAM NAME: RIRI PETERSON UNIT #: [id number] ROOM: 421 DOCTOR: GILBERTO GUERRA MD BIRTHDATE: [birth year] GILBERTO GUERRA MD CM:HISPHYS:PATIENT HISTORY AND PHYSICAL EXAMINATION [id number] GILBERTO GUERRA MD 02/09/18 1827 interface
--- NOTE | ~2018-02-08 | PR ---
[place], [place] PROGRESS NOTE NAME: RIRI PETERSON UNIT #: [id number] ROOM: 421 DOCTOR: GILBERTO GUERRA MD BIRTHDATE: [birth year] DOS: 02/10/2018 SUBJECTIVE: The patient is feeling much better. She has diuresed nicely and her shortness of breath has improved. OBJECTIVE: VITAL SIGNS: Graphic trend shows a pressure 127/64, pulse of 65, respirations 18, temperature 97.8. LUNGS: Diminished breath sounds, clear. HEART: Regular. ABDOMEN: Obese. EXTREMITIES: Without any edema. LABORATORY DATA: BUN is 39, creatinine 1.72, which is slight improvement since admission. Ferritin was 32.5 with an iron of 30. ASSESSMENT AND PLAN: 1. Acute diastolic congestive heart failure with increased leg edema improved with the current dose of diuretics. She has diuresed nicely. 2. Iron-deficiency anemia, iron supplements will be started. The patient is stable and can be discharged back to home today. GILBERTO GUERRA MD CM:PNTRANS [id number] GILBERTO GUERRA MD 02/11/18 0116 interface
--- NOTE | ~2018-02-08 | DS ---
[place], [place] DISCHARGE SUMMARY NAME: RIRI PETERSON UNIT #: [id number] ROOM: 421 DOCTOR: GILBERTO GUERRA MD BIRTHDATE: [birth year] DOS: 02/10/2018 DIAGNOSES: 1. Acute diastolic congestive heart failure. 2. Peripheral volume overload. 3. Factor V Leiden mutation. 4. Morbid obesity. 5. Chronic respiratory failure, oxygen dependent. 6. Obstructive sleep apnea. 7. Type 2 diabetes. 8. Iron deficiency anemia. HOSPITAL COURSE: This patient is known to us, comes in with complaints of increased leg edema and shortness of breath. Please refer to H and P for details. She was admitted, was started on IV diuretics. In addition, Zaroxolyn was ordered and the patient has diuresed extremely well in the last 24 hours with negative balance and the leg swelling is improved. She is no longer short of breath, so plan is to discharge her to home today. Patient to continue Zaroxolyn at home twice weekly before the morning dose of Bumex. Her kidney functions improved since admission. This will be followed up as an outpatient. She also was found to be anemic with iron deficiency noted with low ferritin and low iron. Patient was placed on iron supplements. Rest of the home medications were all continued. GILBERTO GUERRA MD CM:DISCHARG [id number] GILBERTO GUERRA MD 02/10/18 1102 interface
[~2018-02-08 19:31] MED LIST changes: +CALCIUM ACETAT667 MG PO; +XARELTO20 M1 PO
[2018-02-08 19:37] VITALS: BP 142/42
[2018-02-08 20:55] LABS: BASO # 0.1 10*3/uL (0.0-0.1); BASO % 0.4 % (0.0-1.0); EOS # 0.3 10*3/uL (0.0-0.4); EOS % 1.9 % (1.0-4.0); HEMATOCRIT 30.9 % (37.0-47.0); HEMOGLOBIN 8.7 g/dl (12.0-16.0); LYMPH # 1.9 10*3/uL (1.3-4.4); MEAN CELL VOLUME 82.2 fl (81.0-99.0); MEAN CORPUSCULAR HGB 23.1 pg (27.0-31.0); MEAN CORPUSCULAR HGB CONC 28.2 g/dl (33.0-37.0); MONO # 0.6 10*3/uL (0.1-1.0); MONO % 4.8 % (3.0-9.0); NEUT # 10.3 10*3/uL (2.3-7.9); NEUT % 78.4 % (47.0-73.0); PLATELET COUNT AUTOMATED 269 10*3/uL (130-400); RED BLOOD COUNT 3.76 10*6/uL (4.10-5.10); WHITE BLOOD COUNT 13.2 10*3/uL (4.8-10.8)
[2018-02-08 21:07] LABS: INTERNATIONAL NORM RATIO 1.1 (2.0-3.5)
[2018-02-08 21:10] LABS: ALBUMIN 3.3 gm/dl (3.1-4.5); ALKALINE PHOSPHATASE 91 U/L (45-117); BUN 40 mg/dl (7-24); CHLORIDE 101 mmol/L (98-107); POTASSIUM 4.5 mmol/L (3.5-5.1); SGOT/AST 8 IU/L (3-35); SGPT/ALT 14 U/L (12-78); SODIUM 142 mmol/L (136-145); TOTAL PROTEIN 7.3 gm/dL (6.4-8.2)
[2018-02-08 21:11] LABS: TROPONIN I < 0.015 ng/ml (<0.045)
[2018-02-08 23:21] VITALS: BP 126/42
[2018-02-08 23:50] VITALS: BP 168/57
[2018-02-09 07:32] VITALS: BP 146/58
[2018-02-09 09:32] LABS: BASO # 0.1 10*3/uL (0.0-0.1); BASO % 0.4 % (0.0-1.0); EOS # 0.2 10*3/uL (0.0-0.4); EOS % 1.6 % (1.0-4.0); HEMATOCRIT 31.2 % (37.0-47.0); HEMOGLOBIN 8.4 g/dl (12.0-16.0); LYMPH # 1.4 10*3/uL (1.3-4.4); LYMPH % 10.7 % (27.0-41.0); MEAN CELL VOLUME 83.6 fl (81.0-99.0); MEAN CORPUSCULAR HGB 22.5 pg (27.0-31.0); MEAN CORPUSCULAR HGB CONC 26.9 g/dl (33.0-37.0); MONO # 0.7 10*3/uL (0.1-1.0); MONO % 5.1 % (3.0-9.0); NEUT % 81.8 % (47.0-73.0); PLATELET COUNT AUTOMATED 273 10*3/uL (130-400); RED BLOOD COUNT 3.73 10*6/uL (4.10-5.10); RED CELL DISTRI WIDTH 19.1 % (0-14.5); WHITE BLOOD COUNT 13.5 10*3/uL (4.8-10.8)
[2018-02-09 12:00] VITALS: BP 145/38
[2018-02-09 16:00] VITALS: BP 138/57
[2018-02-09 20:00] VITALS: BP 124/44
[2018-02-10 00:33] VITALS: BP 125/41
[2018-02-10 07:00] LABS: POTASSIUM 4.4 mmol/L (3.5-5.1)
[2018-02-10 07:03] LABS: CREATININE 1.72 mg/dL (0.55-1.02)
[2018-02-10 08:00] VITALS: BP 127/64
[2018-02-10] MEDS ORDERED: FERROUS GLUCON324 MG PO (08:39)
[2018-02-10] MEDS ORDERED: Zaroxolyn,Diul2.5 MG PO (08:39)
== END 2018-02-10 10:49 | disposition home or self-care (01) | DRG 292 ==
LOC: ED 19:31 → 4E 21:38 → EDHOLD 21:38 → 4E 21:50
PROVIDERS: Internal Medicine; Physician Assistant
DX: I50.33 Acute on chronic diastolic (congestive) heart failure (principal); D68.51 Activated protein C resistance; J96.10 Chronic respiratory failure, unspecified whether with hypoxia or hypercapnia; E11.22 Type 2 diabetes mellitus with diabetic chronic kidney disease; E66.01 Morbid (severe) obesity due to excess calories; J44.1 Chronic obstructive pulmonary disease with (acute) exacerbation; N18.3 Chronic kidney disease, stage 3 (moderate); L03.116 Cellulitis of left lower limb; Z68.44 Body mass index [BMI] 60.0-69.9, adult; G47.33 Obstructive sleep apnea (adult) (pediatric); D50.9 Iron deficiency anemia, unspecified; G89.29 Other chronic pain; M54.9 Dorsalgia, unspecified; Z99.81 Dependence on supplemental oxygen; Z88.2 Allergy status to sulfonamides; Z88.1 Allergy status to other antibiotic agents; Z91.048 Other nonmedicinal substance allergy status; Z79.4 Long term (current) use of insulin; Z79.899 Other long term (current) drug therapy; Z83.3 Family history of diabetes mellitus; Z84.1 Family history of disorders of kidney and ureter; Z80.8 Family history of malignant neoplasm of other organs or systems; Z79.01 Long term (current) use of anticoagulants

== ENCOUNTER 2018-03-17 22:40 | Inpatient (IN) | payer OTHER ==
[~2018-03-17] VITALS: Ht 175.2 cm; Wt 188.8 kg
--- NOTE | ~2018-03-17 | PR ---
[place], [place] PROGRESS NOTE NAME: RIRI PEETRSON UNIT #: [id number] ROOM: 505 DOCTOR: QUENTIN DEVLIN MD BIRTHDATE: [birth year] DOS: SUBJECTIVE: She voided a fair amount and the fluid balance was almost one liter negative for the last 24 hours. She claims she has been diuresing well. She has less shortness of breath, no chest pain or palpitations. Her appetite is fine. She has moved around in the room. PHYSICAL EXAMINATION: GENERAL: This patient, who has strong malodor, probably from infrequent bathing and probably due to extreme obesity. She is not tachypneic, but has oxygen on. VITAL SIGNS: Pulse is 64, regular, blood pressure 125/47. NECK: JVP appears to be normal. LUNGS: Breath sounds are diminished. EXTREMITIES: Edema in the lower extremities is chronic that is a little difficult to pit. LABORATORY DATA: BUN is 1.51 and was 1.74 yesterday. IMPRESSION: This patient has diastolic heart failure that seems to be improving and I think renal function is also improving because right-sided pressures must be declining from diuresis, which should be continued for the time being. QUENTIN DEVLIN MD CM:PNTRANS [phone] QUENTIN DEVLIN MD 03/20/18 0158 interface
--- NOTE | ~2018-03-17 | PR ---
[place], [place] PROGRESS NOTE NAME: RIRI PETERSON UNIT #: [id number] ROOM: 505 DOCTOR: GILBERTO GUERRA MD BIRTHDATE: [birth year] DOS: 03/21/2018 SUBJECTIVE: The patient is doing fine without any new complaints today. She did undergo the endoscopy, colonoscopy yesterday and was found to have no major pathology other than some gastritis and a few polyps. OBJECTIVE EXAMINATION: GENERAL: Today, she is awake and alert and oriented. VITAL SIGNS: Blood pressure is 141/46, pulse of 65, respirations 20, temperature 97.9. LUNGS: Diminished breath sounds. No wheezes, rales, rhonchi heard. HEART: Regular. ABDOMEN: Obese. EXTREMITIES: Decreasing edema. IMAGING: Colonoscopy again showing polypoid lesions in the colon. Endoscopy showing gastritis. ASSESSMENT AND PLAN: 1. Acute diastolic congestive heart failure, improving. 2. Anemia with heme positive stool, status post endoscopy, colonoscopy; on iron supplements both p.o. and IV. Hemoglobin noted at 7.6. I am hoping it will slowly slide up and would not require any transfusions. The patient is relatively stable and she can be discharged home to be followed up as an outpatient. GILBERTO GUERRA MD CM:PNTRANS [id number] GILBERTO GUERRA MD 03/21/18 6574 interface
--- NOTE | ~2018-03-17 | EKG ---
[place], [place] ELECTROCARDIOGRAM REPORT NAME: RIRI PETERSON UNIT #: [id number] ROOM: [facility] DOCTOR: QUENTIN DEVLIN MD BIRTHDATE: [birth year] DOS: 03/18/2018 TIME: 2355 hours. FINDINGS: 1. Normal sinus rhythm at 64 beats per minute. 2. The tracing is normal. 3. No previous tracing is available for comparison. QUENTIN DEVLIN MD CM:EKGRPT:ELECTROCARDIOGRAM REPORT 1517 17 QUENTIN DEVLIN MD
--- NOTE | ~2018-03-17 | PR ---
[place], [place] PROGRESS NOTE NAME: RIRI PETERSON UNIT #: [id number] ROOM: 505 DOCTOR: TIFFANIE JUAN MD BIRTHDATE: [birth year] DOS: 03/21/2018 SUBJECTIVE: The patient underwent EGD yesterday with gastric biopsies showed gastritis. Cardiac status is stable. The patient was seen by Dr. Lal yesterday. Hemodynamically, she is stable. Blood pressure is stable. She denies any chest discomfort or palpitations. OBJECTIVE: VITAL SIGNS: Hemodynamically stable, blood pressure today is 130/40. I's and O's negative 720 mL. NECK: Supple, no JVD. LUNGS: Diminished air entry. HEART: Sounds are regular. ABDOMEN: Soft, nontender. NEUROLOGIC: Stable. LABORATORY DATA: Shows hemoglobin 7.6, hematocrit is 29 with a sodium 145, potassium 4.2, BUN and creatinine 47 and 1.6. IMPRESSION: The patient with diastolic heart failure that has improved significantly. Anemia, chronic kidney disease. RECOMMENDATIONS: The patient might need blood transfusion, I will leave it up to GI and we will continue to follow. TIFFANIE JUAN MD CM:GERALDINE TIFFANIE JUAN MD 03/21/18 0737 interface
--- NOTE | ~2018-03-17 | O ---
[place], [place] OPERATIVE NOTE NAME: RIRI PETERSON UNIT #: [id number] ROOM: 505 DOCTOR: BEV SEPULVEDA,FADI BIRTHDATE: [birth year] DOS: 03/20/2018 ENDOSCOPIC REPORT Today's procedure part of investigation is colonoscopy. PREMEDICATION: Propofol. SCOPE: Olympus folding colonoscope 10L video. REPORT: After putting the patient in left lateral position and application of lubricant to the scope, the scope was introduced. Thereafter, under direct visualization, advanced through the length of colon without difficulty. Base of the cecum explored, appendiceal orifice identified, and ileocecal valve was defined photographed. The appendiceal orifice photographed. Air was suctioned out. The patient was gradually extubated after a few small sessile polypoid lesions were identified, which we could not remove due to the fact the patient has been on Xarelto and tolerated the procedure well. IMPRESSION: A Multi small sessile polypoid lesions in colon however, they were not removed because the patient on Xarelto up to yesterday. PLAN AND DISCUSSION: Refeeding and future plans for colonoscopy when she is not at risk. FADI PABLO MD CM:OPRECORD:OPERATIVE NOTE 1501 0050 FADI PABLO MD 03/21/18 0048 interface
--- NOTE | ~2018-03-17 | CON ---
[place], [place] REPORT OF CONSULTATION NAME: RIRI PETERSON UNIT #: [id number] ROOM: 505 DOCTOR: BEV SEPULVEDASHERWINFELICITY BIRTHDATE: [birth year] DOS: 03/20/2018 GASTRO ENDOSCOPIC REPORT HISTORY OF PRESENT ILLNESS: The patient has presented with one of her symptomatology which is anemia. The patient on Xarelto, the last dose has been less than 48 hours ago. I have been asked for assessment of the guaiac positivity in this patient on Xarelto and anemic. The patient is morbidly obese. Case was under Dr. Wolf's service. Her white blood cell at the time of admission was 830, white blood cell of 13, platelet count of 262,000. INR was 1.2. Lactic acid 1.2. Comprehensive metabolic panel: BUN and creatinine 47 and 1.7, GFR 38. Electrolytes balance. BNP of 1900. Troponin 0.15. Iron level as well low 24, last H and H was 8 and 30. PAST MEDICAL HISTORY: Associated with morbid obesity, congestive heart failure, renal insufficiency, COPD, diastolic congestive heart failure, cellulitis of lower extremities, chronic anemia. She is on Xarelto. PAST SURGICAL HISTORY: Cataract, tubal ligation, cholecystectomy, , IVC filter. SOCIAL HISTORY: Nonsmoker, nonalcohol consumer. ALLERGIES: TAPE, SULFA, AND LEVOFLOXACIN. FAMILY HISTORY: Coronary artery disease, hypertension, diabetes. REVIEW OF SYSTEMS: HEENT: Denies double vision, blurred vision. RESPIRATORY: Admits some shortness of breath. CARDIOVASCULAR: Denies chest pain. DIGESTIVE SYSTEM: No hematemesis, no hematochezia. PHYSICAL EXAMINATION: GENERAL: Morbidly obese patient. VITAL SIGNS: Stable. HEENT: Head normocephalic, nontraumatic. Mouth and buccal mucosa benign. NECK: Supple, no thyromegaly. CHEST: Symmetric anatomy, decreased air entry bilaterally. HEART: Normal sinus rhythm, no gallop, no murmur. ABDOMEN: Morbidly obese. Intraabdominal organs cannot be palpated. Intraabdominal organs cannot be palpated. Bowel sounds present in all quadrants. EXTREMITIES: Stasis dermatitis and deformity of the skin, chronic edema. NEUROLOGIC: Alert and oriented to time, place, person. IMPRESSION: Chronic anemia, medical issues, morbid obesity, on Xarelto. The patient with a history of hypercoagulability and at the present time, we have been asked for assessment of the patient to proceed with EGD and colonoscopy. [place], [place] REPORT OF CONSULTATION NAME: RIRI PETERSON UNIT #: [id number] ROOM: [facility] DOCTOR: FADI PABLO MD BIRTHDATE: [birth year] PLAN AND DISCUSSION: We are going to proceed with endoscopic assessment of upper and lower tract. Thank you again. FADI PABLO MD CM:CONSTR:REPORT OF CONSULTATION 1501 03/21/18 0044 interface
--- NOTE | ~2018-03-17 | PR ---
[place], [place] PROGRESS NOTE NAME: RIRI PETERSON UNIT #: [id number] ROOM: 505 DOCTOR: GILBERTO GURERA MD BIRTHDATE: [birth year] DOS: 03/19/2018 SUBJECTIVE: The patient states that she is feeling a lot better. Appreciate Dr. Lal's input. OBJECTIVE: VITAL SIGNS: Graphic trend shows a pressure 122/56, pulse of 60, respirations 14, temperature 98.9. LUNGS: Diminished breath sounds. HEART: Regular. ABDOMEN: Obese. Still has some abdominal wall anasarca. EXTREMITIES: Decreasing edema. She has lost about 18 pounds since admission. ASSESSMENT AND PLAN: 1. Acute diastolic congestive heart failure. Echocardiogram will be ordered for tomorrow. The patient is slowly improving. 2. Type 2 diabetes mellitus, insulin-dependent, controlled. 3. Anemia with continued precipitous drop in hematocrit, hemoglobin is down to 7.9. We will recheck in the morning. Hemoccults will be ordered. Iron and ferritin have been ordered and she was on iron supplements p.o. We will start iron infusions once we have the iron level. GILBERTO GUERRA MD CM:PNTRANS [phone] GILBERTO GUERRA MD 03/20/18 0128 interface
--- NOTE | ~2018-03-17 | CON ---
[place], [place] REPORT OF CONSULTATION NAME: RIRI PETERSON UNIT #: [id number] ROOM: 505 DOCTOR: QUENTIN DEVLIN MD BIRTHDATE: [birth year] DOS: 03/18/2018 HISTORY OF PRESENT ILLNESS: This is a 52-year-old -[place] woman with extreme obesity, essential hypertension, chronic kidney disease, type 2 diabetes mellitus, chronic respiratory failure, obstructive sleep apnea, (she is not able to use the CPAP because the mask is frayed). She also has had chronic diastolic heart failure with some exacerbation. She was in this hospital a couple of months ago with heart failure and was diuresed. She does not smoke nor does she drink alcoholic beverages. She drinks a couple of cans of soda drinks, which has a fair amount of sodium in it. Otherwise, she is very careful with her salt intake. She was admitted to the Emergency Department because of increasing shortness of breath of 7 days duration, chronic swelling in the legs had not gotten worse. She has no chest pain, palpitations and had no dizziness or loss of consciousness. She had been compliant with her medications, which include bumetanide 2 mg b.i.d. and Zaroxolyn twice a week. HOME MEDICATIONS: Include bumetanide, Zaroxolyn/metolazone, Xarelto 20 mg daily, carvedilol 12.5 mg b.i.d., alprazolam 0.5 mg t.i.d., Advair 500/50 two puffs b.i.d., gabapentin 300 mg b.i.d., oxycodone 10 mg q.6 hours, insulin aspart. PHYSICAL EXAMINATION: GENERAL: This is a patient who is extremely obese. She is alert. She is not cyanotic, not jaundiced. VITAL SIGNS: Temperature is normal. VITAL SIGNS: Pulse is 76 and regular, blood pressure 133/50. NECK: JVP was assessed in detail that appear to be normal. AJR was also negative. CARDIAC: Auscultation revealed grade 1/6 early peaking systolic murmur over the aortic area. A2 was of normal intensity. No obvious apical murmurs were pleasant. She has large legs with chronic edema that is difficult to pit. RESPIRATORY: She is not particularly tachypneic. Breath sounds are diminished moderately bilateral because of restrictive lungs, very few adventitious sounds are present. LABORATORY DATA: Chest x-ray was reviewed by me. It is very underpenetrated and interpretation rather difficult. I think there is probably some pleural effusion. A CT scan may be better way to assess pulmonary edema and effusion. Hemoglobin is 8.2 g/dL, MCV 85, WBC is 13.2. Glucose 226 mg/dL, BUN 47, creatinine 1.74. Estimated GFR is 31 mL per minute. IMPRESSION: 1. This patient has chronic systolic heart failure. I think there may have been some mild exacerbation. She has diuresed well with current IV bumetanide and she claims her breathing is better. 2. Chronic kidney disease. This is reasonably stable. 3. Restrictive lung disease due to extreme obesity/chronic obstructive [place], [place] REPORT OF CONSULTATION NAME: RIRI PETERSON UNIT #: [id number] ROOM: [facility] DOCTOR: QUENTIN DEVLIN MD BIRTHDATE: [birth year] pulmonary disease. Current dose of bumetanide 2 mg b.i.d. should be continued while monitoring renal function and if she requires metolazone, that would be quite acceptable while keeping an eye on the kidney function. Monitor shows normal sinus rhythm. The heart rate in the 60s. I thank you for this consult. QUENTIN DEVLIN MD CM:CONSTR:REPORT OF CONSULTATION 1510 03/19/18 0718 interface
--- NOTE | ~2018-03-17 | WRIGHTHP ---
[place], [place] PATIENT HISTORY AND PHYSICAL EXAM NAME: RIRI PETERSON [facility] CL[facility] #: [id number] UNIT #: [id number] ROOM: 505 DOCTOR: GILBERTO GUERRA MD BIRTHDATE: [birth year] DOS: 03/18/2018 HISTORY OF PRESENT ILLNESS: The patient is 52-year-old. The patient is very well known to us, comes in with increasing shortness of breath for the last 3 days. The patient states that she never left the house for 3 days and she was not exposed to the high heat and humidity. She also has noticed increasing leg edema. Denies having any chest pains, palpitations, does not have any fever or chills. PAST MEDICAL HISTORY: Significant for: 1. Diastolic CHF. 2. Morbid obesity. 3. Factor V Leiden mutation. 4. Chronic kidney disease stage 3. 5. Chronic respiratory failure. 6. Obstructive sleep apnea. 7. Type 2 diabetes mellitus, insulin-dependent. 8. Iron deficiency anemia. MEDICATIONS: She is currently on are oxygen, Advair, Xanax, Bumex, carvedilol, iron, gabapentin, glipizide, metolazone, oxycodone, Xarelto and insulin pump. SOCIAL HISTORY: Nonsmoker, does not use any alcohol. PHYSICAL EXAMINATION: GENERAL: She is awake and alert and oriented, in mild respiratory distress. VITAL SIGNS: Blood pressure is 133/42, pulse of 60, respirations 18, temperature 98.6. LUNGS: Diminished breath sounds. HEART: Regular. ABDOMEN: Obese, soft, nontender. EXTREMITIES: About 2+ pitting edema bilaterally. LABORATORY DATA: Shows BUN of 47, creatinine 1.74, sodium 142, potassium 4.9, chloride 102, bicarbonate 34. ASSESSMENT AND PLAN: 1. A patient who presents with acute respiratory distress syndrome, on oxygen, saturating fairly well. 2. Acute diastolic congestive heart failure. IV diuretics have been ordered. Part of the problem she is morbidly obese and has been unable to lose any weight. Echocardiogram shows diastolic dysfunction in the past. We will ask Dr. Lal for an opinion about possible cardiac catheterization. 3. Type 2 diabetes mellitus, insulin-dependent, continue insulin pump as well as glipizide. 4. Chronic kidney disease. We will monitor kidney functions closely since she is on diuretics IV. [place], [place] PATIENT HISTORY AND PHYSICAL EXAM NAME: RIRI PETERSON UNIT #: [id number] ROOM: 505 DOCTOR: GILBERTO GUERRA MD BIRTHDATE: [birth year] GILBERTO GUERRA MD CM:HISPHYS:PATIENT HISTORY AND PHYSICAL EXAMINATION 0740 03 GILBERTO GUERRA MD 03/18/18 2003 interface
--- NOTE | ~2018-03-17 | DS ---
[place], [place] DISCHARGE SUMMARY NAME: RIRI PETERSON UNIT #: [id number] ROOM: 505 DOCTOR: GILBERTO GUERRA MD BIRTHDATE: [birth year] DOS: 03/21/2018 IDENTIFICATION: This patient is 52 years old. DATE OF ADMISSION: 03/18/2018 DATE OF DISCHARGE: 03/21/2018 DISCHARGE DIAGNOSES: 1. Acute diastolic congestive heart failure. 2. Precipitous drop in hematocrit with iron deficiency anemia and heme positive stools, status post endoscopy, colonoscopy. Endoscopy showing gastritis. Colonoscopy showing multiple polypoid lesions which were not biopsied because the patient was on Xarelto. 3. Factor V Leiden mutation. 4. Morbid obesity. 5. Type 2 diabetes mellitus, insulin-dependent. 6. Chronic kidney disease stage 3. 7. Chronic respiratory failure, oxygen dependent. 8. Obstructive sleep apnea. DISCHARGE MEDICATIONS: Will be Protonix 40 mg daily, breathing treatments with DuoNeb q. 4, Xanax 0.5 t.i.d. p.r.n., insulin pump, oxygen 3 liter per minute nasal cannula, carvedilol 12.5 b.i.d., Advair 500 two puffs twice a day, oxycodone 10 q. 6, glipizide 10 daily, gabapentin 300 b.i.d., Bumex 2 mg b.i.d., Xarelto 20 daily, metolazone 2.5, iron 324 daily. HOSPITAL COURSE: This patient is 52 years old. The patient is very well known to us, comes in with complaints of increasing difficulty breathing and leg edema. Please refer to H and P for details. She was admitted after being found to have diastolic CHF acute on the chest x-ray. The patient was placed on IV diuretics. Dr. Lal was consulted who advised continued medical management. The patient's kidney functions were followed closely because of being on diuretics and having kidney disease. Blood sugars have been controlled. Her blood count has been slowly dropping, so iron and ferritin were ordered, which were found to be low and Hemoccults were positive. Dr. Osuna was consulted. The patient taken for an endoscopy and colonoscopy, above-mentioned findings were noted, but she is cleared to restart her Xarelto and to continue iron supplements. She did receive iron infusions here and 3 doses before discharge. The patient is stable and can be discharged home today to be followed up as an outpatient. [place], [place] DISCHARGE SUMMARY NAME: RIRI PETERSON UNIT #: [id number] ROOM: [facility] DOCTOR: GILBERTO GUERRA MD BIRTHDATE: [birth year] GILBERTO GUERRA MD CM:DISCHYARED [id number] GILBERTO GUERRA MD 03/31/18 0840 interface
--- NOTE | ~2018-03-17 | PR ---
[place], [place] PROGRESS NOTE NAME: RIRI PETERSON UNIT #: [id number] ROOM: 505 DOCTOR: QUENTIN DEVLIN MD BIRTHDATE: [birth year] DOS: 03/20/2018 SUBJECTIVE: She feels much better. Breathing is easier, has been this way for many weeks. She has no chest pain or palpitation. She ate well and has been walking around the room. She is to have endoscopic examination of her GI tract today. OBJECTIVE: GENERAL: On examination, the patient was extremely obese, pleasant, and alert. VITAL SIGNS: Pulse is 74 and regular, blood pressure 168/61, and previous blood pressures have been normal. NECK: JVP is normal. LUNGS: Breath sounds are moderately diminished with some crackles, more so on the left side and 2+ pitting edema of the legs and large legs, difficult to pick. LABORATORY DATA: Hemoglobin is 8 grams/dL, BUN is 51, creatinine 1.65, and creatinine was 1.51 yesterday. She is -1.5 liter for fluid balance for the last 24 hours. IMPRESSION: 1. This patient has diastolic heart failure that has improved significantly. 2. Extreme obesity. 3. Chronic kidney disease with some improvement since admission. RECOMMENDATIONS: Same dose of furosemide for the next day or two while monitoring renal function. QUENTIN DEVLIN MD CM:PNTRANS [phone] QUENTIN DEVLIN MD 03/21/18 0020 interface
--- NOTE | ~2018-03-17 | O ---
[place], [place] OPERATIVE NOTE NAME: RIRI PETERSON UNIT #: [id number] ROOM: 505 DOCTOR: BEV SEPULVEDA,FADI BIRTHDATE: [birth year] DOS: 03/20/2018 OPERATIVE REPORT The patient has presented with anemia, borderline and guaiac positivity on Xarelto. PROCEDURE: Today's procedure part of investigation is panendoscopy and colonoscopy. PREMEDICATION: Propofol. SCOPE: Olympus forward-viewing gastroscope Q10 video. REPORT: After putting the patient in left lateral position and application of lubricant to the scope, the scope was introduced. Thereafter, under direct visualization, advanced through the length of esophagus without difficulty. Mild gastritis was noticed. Antral biopsy obtained, photographed. Duodenal bulb, second and third part within normal limit. The patient extubated, tolerated procedure well. IMPRESSION: Gastritis, status post biopsy. PLAN AND DISCUSSION: We are going to continue with Protonix 40 mg daily. On the other hand, she is going to receive her medications, 1800 ADA diet today. We are going to proceed with colonoscopy. FADI PABLO MD CM:OPRECORD:OPERATIVE NOTE [id number] FADI PABLO MD 03/21/18 0047 interface
--- NOTE | ~2018-03-17 | PR ---
[place], [place] PROGRESS NOTE NAME: RIRI PETERSON UNIT #: [id number] ROOM: 505 DOCTOR: GILBERTO GUERRA MD BIRTHDATE: [birth year] DOS: 03/20/2018 SUBJECTIVE: The patient is feeling fairly good and is anxious about her procedures. OBJECTIVE: VITAL SIGNS: Graphic trend shows pressure of 129/44, pulse of 70, respirations 18. LUNGS: Diminished breath sounds, clearer. HEART: Regular. ABDOMEN: Obese. EXTREMITIES: Decreasing edema, still some anasarca in the thighs as well as the abdominal wall. LABORATORY DATA: White cell count is 12.7, hemoglobin 8, hematocrit 30.2, platelets 263. BMP: Glucose 144, BUN 51, creatinine 1.65, sodium 143, potassium 4.5, chloride 100, bicarbonate 37. Fecal occult positive. Iron was 24. Ferritin was 20.8. ASSESSMENT AND PLAN: 1. Precipitous drop in hematocrit with iron deficiency anemia and heme positive stools. The patient will need to have an endoscopy. Discussed with this morning. She has been anemic for a couple of months now and slowly dropping in hematocrit. She has refused endoscopy in the past, but advised the patient that we have to do it before we can restart the Xarelto. So for right now, she is scheduled for an endoscopy and a colonoscopy. Discussed with Dr. Osuna. 2. Iron deficiency anemia, on iron supplements. 3. Diastolic congestive heart failure, acute, improving with diuretics again, since she is going to be scheduled for a procedure yesterday. I will hold off on her diuretics. 4. Chronic kidney disease. Kidney functions are about the same as yesterday, not much change. We will repeat in the morning. GILBERTO GUERRA MD CM:PNTRANS [phone] GILBERTO GUERRA MD 03/20/181852 interface
[~2018-03-17 22:40] MED LIST changes: +FERROUS GLUCON324 MG PO
[2018-03-17 22:46] VITALS: BP 155/56
[2018-03-17 23:45] VITALS: BP 140/60
[2018-03-17 23:55] LABS: BASO # 0.1 10*3/uL (0.0-0.1); BASO % 0.4 % (0.0-1.0); EOS # 0.3 10*3/uL (0.0-0.4); EOS % 2.1 % (1.0-4.0); HEMATOCRIT 30.4 % (37.0-47.0); HEMOGLOBIN 8.2 g/dl (12.0-16.0); LYMPH # 1.8 10*3/uL (1.3-4.4); LYMPH % 13.3 % (27.0-41.0); MEAN CELL VOLUME 85.2 fl (81.0-99.0); MEAN PLATELET VOLUME 8.4 fl (9.6-12.3); MONO # 0.6 10*3/uL (0.1-1.0); MONO % 4.9 % (3.0-9.0); NEUT # 10.3 10*3/uL (2.3-7.9); NEUT % 78.4 % (47.0-73.0); NUCLEATED RED BLOOD CELL 0.2 % (0.0-0.0); PLATELET COUNT AUTOMATED 262 10*3/uL (130-400); RED BLOOD COUNT 3.57 10*6/uL (4.10-5.10); RED CELL DISTRI WIDTH 18.5 % (0-14.5); WHITE BLOOD COUNT 13.2 10*3/uL (4.8-10.8)
[2018-03-18 00:06] LABS: INTERNATIONAL NORM RATIO 1.2 (2.0-3.5)
[2018-03-18 00:13] LABS: ALBUMIN 3.3 gm/dl (3.1-4.5); ALKALINE PHOSPHATASE 95 U/L (45-117); BUN 47 mg/dl (7-24); CHLORIDE 102 mmol/L (98-107); CREATININE 1.74 mg/dL (0.55-1.02); POTASSIUM 4.9 mmol/L (3.5-5.1); SGOT/AST 4 IU/L (3-35); SGPT/ALT 13 U/L (12-78); SODIUM 142 mmol/L (136-145); TOTAL PROTEIN 7.7 gm/dL (6.4-8.2)
[2018-03-18 00:14] LABS: TROPONIN I < 0.015 ng/ml (<0.045)
[2018-03-18 01:50] VITALS: BP 133/42
[2018-03-18 01:51] VITALS: BP 145/55
[2018-03-18 08:00] VITALS: BP 141/49
[2018-03-18 12:00] VITALS: BP 133/50
[2018-03-18 16:00] VITALS: BP 132/50
[2018-03-18 20:00] VITALS: BP 130/66
[2018-03-19] VITALS: BP 122/56
[2018-03-19 06:43] LABS: BASO # 0.1 10*3/uL (0.0-0.1); BASO % 0.4 % (0.0-1.0); EOS # 0.3 10*3/uL (0.0-0.4); EOS % 2.3 % (1.0-4.0); HEMATOCRIT 29.4 % (37.0-47.0); HEMOGLOBIN 7.9 g/dl (12.0-16.0); LYMPH # 1.6 10*3/uL (1.3-4.4); LYMPH % 13.2 % (27.0-41.0); MEAN CORPUSCULAR HGB 22.8 pg (27.0-31.0); MEAN CORPUSCULAR HGB CONC 26.9 g/dl (33.0-37.0); MEAN PLATELET VOLUME 8.8 fl (9.6-12.3); MONO # 0.7 10*3/uL (0.1-1.0); MONO % 5.7 % (3.0-9.0); NEUT # 9.7 10*3/uL (2.3-7.9); NEUT % 77.8 % (47.0-73.0); PLATELET COUNT AUTOMATED 255 10*3/uL (130-400); RED BLOOD COUNT 3.46 10*6/uL (4.10-5.10); RED CELL DISTRI WIDTH 18.5 % (0-14.5); WHITE BLOOD COUNT 12.4 10*3/uL (4.8-10.8)
[2018-03-19 06:46] LABS: CREATININE 1.51 mg/dL (0.55-1.02); POTASSIUM 4.5 mmol/L (3.5-5.1)
[2018-03-19 08:00] VITALS: BP 125/47
[2018-03-19 12:00] VITALS: BP 125/47
[2018-03-19 16:00] VITALS: BP 143/59
[2018-03-19 20:00] VITALS: BP 126/53
[2018-03-20] VITALS (9 sets, daily range): BP systolic 103–168; BP diastolic 40–75
[2018-03-20 06:31] LABS: BASO # 0.1 10*3/uL (0.0-0.1); BASO % 0.4 % (0.0-1.0); EOS # 0.3 10*3/uL (0.0-0.4); EOS % 2.4 % (1.0-4.0); HEMATOCRIT 30.2 % (37.0-47.0); LYMPH # 1.3 10*3/uL (1.3-4.4); LYMPH % 10.1 % (27.0-41.0); MEAN CELL VOLUME 85.6 fl (81.0-99.0); MEAN CORPUSCULAR HGB 22.7 pg (27.0-31.0); MEAN CORPUSCULAR HGB CONC 26.5 g/dl (33.0-37.0); MEAN PLATELET VOLUME 8.6 fl (9.6-12.3); MONO # 0.7 10*3/uL (0.1-1.0); MONO % 5.5 % (3.0-9.0); NEUT # 10.3 10*3/uL (2.3-7.9); NEUT % 81.2 % (47.0-73.0); PLATELET COUNT AUTOMATED 263 10*3/uL (130-400); RED BLOOD COUNT 3.53 10*6/uL (4.10-5.10); RED CELL DISTRI WIDTH 18.3 % (0-14.5); WHITE BLOOD COUNT 12.7 10*3/uL (4.8-10.8)
[2018-03-20 06:59] LABS: CREATININE 1.65 mg/dL (0.55-1.02); POTASSIUM 4.5 mmol/L (3.5-5.1)
[2018-03-21] VITALS: BP 131/46
[2018-03-21 06:46] LABS: BASO % 0.3 % (0.0-1.0); EOS # 0.3 10*3/uL (0.0-0.4); EOS % 2.8 % (1.0-4.0); HEMOGLOBIN 7.6 g/dl (12.0-16.0); LYMPH # 1.2 10*3/uL (1.3-4.4); LYMPH % 10.7 % (27.0-41.0); MEAN CELL VOLUME 86.3 fl (81.0-99.0); MEAN CORPUSCULAR HGB 22.6 pg (27.0-31.0); MEAN CORPUSCULAR HGB CONC 26.2 g/dl (33.0-37.0); MEAN PLATELET VOLUME 8.1 fl (9.6-12.3); MONO # 0.7 10*3/uL (0.1-1.0); MONO % 6.1 % (3.0-9.0); NEUT # 9.1 10*3/uL (2.3-7.9); NEUT % 79.7 % (47.0-73.0); PLATELET COUNT AUTOMATED 232 10*3/uL (130-400); RED BLOOD COUNT 3.36 10*6/uL (4.10-5.10); RED CELL DISTRI WIDTH 18.5 % (0-14.5); WHITE BLOOD COUNT 11.5 10*3/uL (4.8-10.8)
[2018-03-21 06:55] LABS: CREATININE 1.66 mg/dL (0.55-1.02); POTASSIUM 4.2 mmol/L (3.5-5.1)
[2018-03-21] MEDS ORDERED: PROTONIX40 MG PO (07:34)
[2018-03-21] MEDS ORDERED: DUONEB 3 MG/3 ML3 M1 NEB (07:34)
[2018-03-21 08:00] VITALS: BP 138/60
== END 2018-03-21 10:17 | disposition home or self-care (01) | DRG 292 ==
LOC: ED 22:40 → 5E 03-18 01:15 → EDHOLD 03-18 01:15 → 5E 03-18 01:26
PROVIDERS: Emergency Medicine; Internal Medicine
PROC: 0DB78ZX Excision of Stomach, Pylorus, Via Natural or Artificial Opening Endoscopic, Diagnostic (ICD-10-PCS; principal; 2018-03-20)
PROC: 0DJD8ZZ Inspection of Lower Intestinal Tract, Via Natural or Artificial Opening Endoscopic (ICD-10-PCS; 2018-03-20)
DX: I50.33 Acute on chronic diastolic (congestive) heart failure (principal); J96.10 Chronic respiratory failure, unspecified whether with hypoxia or hypercapnia; E11.22 Type 2 diabetes mellitus with diabetic chronic kidney disease; E66.01 Morbid (severe) obesity due to excess calories; Z68.44 Body mass index [BMI] 60.0-69.9, adult; R71.0 Precipitous drop in hematocrit; K29.70 Gastritis, unspecified, without bleeding; I50.22 Chronic systolic (congestive) heart failure; Z99.81 Dependence on supplemental oxygen; J44.9 Chronic obstructive pulmonary disease, unspecified; K63.5 Polyp of colon; D50.9 Iron deficiency anemia, unspecified; N18.3 Chronic kidney disease, stage 3 (moderate); G47.33 Obstructive sleep apnea (adult) (pediatric); Z79.899 Other long term (current) drug therapy; Z87.891 Personal history of nicotine dependence; Z88.2 Allergy status to sulfonamides; Z88.1 Allergy status to other antibiotic agents; Z91.040 Latex allergy status; Z87.440 Personal history of urinary (tract) infections; Z90.49 Acquired absence of other specified parts of digestive tract; Z98.51 Tubal ligation status; Z79.4 Long term (current) use of insulin; Z98.49 Cataract extraction status, unspecified eye; Z82.49 Family history of ischemic heart disease and other diseases of the circulatory system; Z83.3 Family history of diabetes mellitus; Z80.9 Family history of malignant neoplasm, unspecified; Z84.1 Family history of disorders of kidney and ureter

== ENCOUNTER 2018-03-24 16:00 | Inpatient (IN) | payer OTHER ==
[~2018-03-24] VITALS: Ht 175.2 cm; Wt 188.4 kg
--- NOTE | ~2018-03-24 | DS ---
[place], [place] DISCHARGE SUMMARY NAME: RIRI PETERSON UNIT #: [id number] ROOM: 425 DOCTOR: LAUREEN SEPULVEDAFANTA J BIRTHDATE: [birth year] DOS: 03/28/2018 DISCHARGE DIAGNOSES: 1. Acute exacerbation of underlying chronic obstructive pulmonary disease. 2. Type 2 diabetes mellitus. 3. Morbid obesity. 4. Factor V Leiden mutation coagulopathy. 5. Chronic kidney disease stage 3b. 6. History of gastrointestinal bleed. 7. Acute over chronic diastolic type congestive heart failure. 8. Obesity hypoventilation syndrome. 9. Obstructive sleep apnea. HOSPITAL COURSE: The patient was admitted when she presented to the Emergency Department with increasing shortness of breath, cough and wheezing. The patient was diagnosed as having acute exacerbation of COPD, which was treated with corticosteroids, oxygen, nebulizer treatments and her breathing is improved and she is being discharged to home. 1. Acute diastolic type congestive heart failure, which was improving on the chest x-ray from previous admission. Same treatment with diuretics was continued and the patient continued to improve. The patient will be discharged to home on diuretics. 2. Type 2 diabetes mellitus. Blood sugars monitored and treated. The patient was kept on a no concentrated sweet diet. 3. Factor V Leiden mutation and coagulopathy, treated with Xarelto. No issues. 4. Recent gastrointestinal bleed and anemia from blood loss. Hemoglobin was monitored and stayed stable during the stay at the hospital. 5. Iron deficiency anemia treated with iron supplements. 6. Morbid obesity. The patient worked with dietary. LABORATORY DATA: BUN and creatinine 59 and 1.64. Normal serum electrolytes, hemoglobin of 8.4. DISCHARGE MANAGEMENT: Bumex 2 mg b.i.d., Protonix 40 mg daily, Xarelto 20 mg a day, Coreg 12.5 mg b.i.d., DuoNeb every 4 to 6 hours, Augmentin 875 mg twice a day for a week, Medrol Dosepak, oxycodone 10 mg every 6 hours as needed for pain, Xanax 0.5 mg t.i.d. p.r.n. for anxiety. Follow with Dr. Wolf within a week of discharge. [place], [place] DISCHARGE SUMMARY NAME: RIRI PETERSON UNIT #: [id number] ROOM: 425 DOCTOR: FANTA GARDUNO MD BIRTHDATE: [birth year] FANTA GARDUNO MD CM:BERTRAM [phone] FANTA GARDUNO MD 03/29/18 0251 interface
--- NOTE | ~2018-03-24 | PR ---
[place], [place] PROGRESS NOTE NAME: RIRI PETERSON UNIT #: [id number] ROOM: 425 DOCTOR: FANTA GARDUNO MD BIRTHDATE: [birth year] DOS: 03/27/2018 SUBJECTIVE: The patient is doing well. Her breathing continues to improve. OBJECTIVE: VITAL SIGNS: Blood pressure 146/54, heart rate of 66 beats per minute, breathing 24 times per minute, and temperature 98 degrees Fahrenheit. GENERAL APPEARANCE: The patient is alert and oriented x 3, in no visible distress except for morbid obesity, decreased breath sounds. .HEENT AND NECK: Exam within normal limits. CARDIOVASCULAR SYSTEM: Heart rate is regular in rate and rhythm. S1 and S2 normally audible. LUNGS: Clear to auscultation. ABDOMEN: Soft, nontender. No obvious organomegaly. Bowel sounds are present. EXTREMITIES: Without significant cyanosis or edema. IMPRESSION: 1. The patient with obesity hypoventilation syndrome with elevated CO2 levels, to be treated with Diamox. 2. Acute exacerbation of severe underlying chronic obstructive pulmonary disease, which adds on for acute over chronic respiratory failure. 3. Chronic diastolic type congestive heart failure, improving with diuresis, improved on chest x-ray at admission. 4. History of gastrointestinal bleed and anemia. Hemoglobin at 7.9 and stable at this time. 5. Chronic iron deficiency anemia, treated with supplements. 6. Factor V Leiden mutation and coagulopathy, treated with Xarelto. 7. Type 2 diabetes mellitus. Blood sugars are very well controlled. 8. Chronic kidney disease, stage 3b stable. FANTA GARDUNO MD CM:PNTRANS [phone] FANTA GARDUNO MD 03/27/182055 interface
--- NOTE | ~2018-03-24 | PR ---
[place], [place] PROGRESS NOTE NAME: RIRI PETERSON UNIT #: [id number] ROOM: 425 DOCTOR: FANTA GARDUNO MD BIRTHDATE: [birth year] DOS: 03/27/2018 SUBJECTIVE: The patient's breathing continues to improve with treatment. OBJECTIVE: VITAL SIGNS: Blood pressure 146/54, heart rate 66 beats per minute, breathing 24 times per minute, and temperature 98 degrees Fahrenheit. GENERAL APPEARANCE: The patient is alert and oriented x 3, in no visible distress, except for obesity. HEENT AND NECK: Exam within normal limits. CARDIOVASCULAR SYSTEM: Heart rate is regular in rate and rhythm. S1 and S2 normally audible. LUNGS: Clear to auscultation. ABDOMEN: Soft, nontender. No obvious organomegaly. Bowel sounds are present. EXTREMITIES: Without significant cyanosis or edema. IMPRESSION: 1. The patient with acute exacerbation of chronic obstructive pulmonary disease with acute over chronic respiratory failure, continues to improve with DuoNeb, corticosteroids, oxygen and antibiotics. 2. Type 2 diabetes mellitus. Blood sugars being monitored and treated. The patient on a no concentrated sweet diet. Blood sugars are well controlled. FANTA GARDUNO MD CM:PNTRANS [phone] FANTA GARDUNO MD 03/27/182120 interface
--- NOTE | ~2018-03-24 | PR ---
[place], [place] PROGRESS NOTE NAME: RIRI PETERSON UNIT #: [id number] ROOM: 425 DOCTOR: FANTA GARDUNO MD BIRTHDATE: [birth year] DOS: 03/26/2018 SUBJECTIVE: The patient's breathing is improving with treatment. OBJECTIVE: GENERAL APPEARANCE: The patient is alert and oriented x 3, in no visible distress. Morbid obesity. The patient is wearing oxygen. VITAL SIGNS: Blood pressure 131/43, heart rate 69 beats per minute, breathing 20 times per minute, temperature 98 degrees Fahrenheit. HEENT AND NECK: Exam within normal limits. CARDIOVASCULAR SYSTEM: Heart rate is regular in rate and rhythm. S1 and S2 normally audible. LUNGS: Clear to auscultation. ABDOMEN: Soft, nontender. No obvious organomegaly. Bowel sounds are present. EXTREMITIES: Chronic leg changes with 3+ leg and pedal edema with stasis dermatitis and pigmentary changes, which are chronic. IMPRESSION: 1. Acute exacerbation of chronic obstructive pulmonary disease, with increased shortness of breath with acute over chronic respiratory failure, improving with bronchodilators, corticosteroids, oxygen, and antibiotics. 2. Chronic diastolic-type congestive heart failure, continues to improve with diuresis with Bumex and low-salt diet. Last chest x-ray showed improving congestive heart failure. 3. History of gastrointestinal bleed and anemia. I will repeat hemoglobin in the morning. 4. Factor V Leiden mutation and coagulopathy, treated with Xarelto. 5. History of gastrointestinal bleed and anemia. Hemoglobin to be repeated tomorrow. 6. Iron deficiency anemia treated with supplements. 7. Type 2 diabetes mellitus. The patient's blood sugars are being monitored. 8. Diabetic nephropathy with stage 3 chronic kidney disease. FANTA GARDUNO MD CM:PNTRANS [id number] FANTA GARDUNO MD 03/26/18 2325 interface
--- NOTE | ~2018-03-24 | WRIGHTHP ---
[place], [place] PATIENT HISTORY AND PHYSICAL EXAM [id number] UNIT #: [id number] ROOM: 425 DOCTOR: FANTA GARDUNO MD BIRTHDATE: [birth year] DOS: 03/24/2018 HISTORY OF PRESENT ILLNESS: The patient is a 52-year-old female with a past medical history of recent discharge from [facility] with treatment for; 1. Acute diastolic type congestive heart failure. 2. Chronic respiratory failure, oxygen dependence and chronic obstructive pulmonary disease. 3. Recent anemia from precipitous drop in hematocrit and iron deficiency with heme-positive stools. The patient was on Xarelto. 4. Factor V Leiden mutation. 5. Morbid obesity. 6. Type 2 diabetes mellitus, insulin requiring. 7. Chronic kidney disease stage 3 and diabetic nephropathy. 8. Obstructive sleep apnea. The patient was recently treated for acute congestive heart failure and sent home, but she returned with increasing wheezing and shortness of breath to the Emergency Department and was seen by Dr. Scott and recommended for admission for acute exacerbation of COPD with wheezing and acute over chronic respiratory failure. After admission, the patient's breathing starting to improve with treatment. REVIEW OF SYSTEMS: CARDIOVASCULAR SYSTEM: No chest pain or palpitations. RESPIRATORY: Increased shortness of breath and wheezing. GASTROINTESTINAL: No nausea, vomiting, diarrhea or constipation. ALLERGIES: Known allergies to SULFUR, TAPE and QUINOLONES. HOME MEDICATIONS: Oxygen, oxycodone, Coreg, Bumex, Xarelto, DuoNebs, Protonix. SOCIAL HISTORY: Denies smoking cigarettes, alcohol or drug abuse. PHYSICAL EXAMINATION: GENERAL: Alert, oriented x 3, morbidly obese. HEENT AND NECK: Extraocular movements are intact. Sclerae are anicteric. Oral mucosa is moist and clean. No obvious facial weakness. Neck is supple without any lymphadenopathy. No thyromegaly. No JVD. No carotid arterial bruits. LUNGS: Expiratory wheezing and decreased breath sounds. CARDIOVASCULAR SYSTEM: Heart rate is regular in rate and rhythm. S1 and S2 normally audible. No significant murmur or any other abnormal cardiac sounds. ABDOMEN: Soft, nontender. No obvious organomegaly. Bowel sounds are present. No obvious herniation. EXTREMITIES: Without significant cyanosis or edema. Warm to touch. CENTRAL NERVOUS SYSTEM: Alert and oriented x 3. Cranial nerves II-XII are intact. Speech is normal. The patient is able to move all extremities. Normal muscle strength. Deep tendon reflexes are equal on both sides. Plantars were downgoing. [place], [place] PATIENT HISTORY AND PHYSICAL EXAM NAME: RIRI PETERSON UNIT #: [id number] ROOM: 425 DOCTOR: FANTA GARDUNO MD BIRTHDATE: [birth year] IMAGING AND LABORATORY DATA: Chest x-ray showing resolving congestive heart failure as compared to recent admission. BUN and creatinine is 46 and 1.84. Hemoglobin 7.8. IMPRESSION: 1. The patient has acute exacerbation of significant underlying chronic obstructive pulmonary disease with acute over chronic respiratory failure, to be treated with DuoNebs, corticosteroids, oxygen, and antibiotic. 2. Type 2 diabetes mellitus. Blood sugars to be monitored and treated. The patient kept on no concentrated sweet diet. 3. Factor V Leiden mutation and coagulopathy, treated with Xarelto. 4. History of gastrointestinal bleed and anemia. The patient's hemoglobins are being monitored. 5. Iron-deficiency anemia, treated with iron supplements. 6. Chronic diastolic type congestive heart failure with recent acute episode, resolving on chest x-ray. The patient is being diuresed with Bumex. FANTA GARDUNO MD CM:HISPHYS:PATIENT HISTORY AND PHYSICAL EXAMINATION 1333 1434 FANTA GARDUNO MD 03/25/18 1432 interface
--- NOTE | ~2018-03-24 | EKG ---
[place], [place] ELECTROCARDIOGRAM REPORT NAME: RIRI PETERSON UNIT #: [id number] ROOM: 425 DOCTOR: KRANTHI DRAFT REPORT BIRTHDATE: [birth year] [facility] Test Date: 2018-03-24 Test Time: 17:05:46 Pat Name: RIRI PETERSON Department: Room: Gender: F Psychiatric Specialist: : 1965 Requested By: NASRA VAZQUEZ Order Number: [id number] Reading MD: Pino Thomson MD Measurements Intervals Wells Rate: 61 P: -2 WI: 142 QRS: 52 QRSD: 96 T: 11 QT: 386 QTc: 389 Interpretive Statements Sinus arrhythmia Abnormal R-wave progression, late transition Minimal ST depression, inferior leads Electronically Signed On 03-25-2018 14:44:34 PDT by Pino Thomson MD CM:EKGRPT:ELECTROCARDIOGRAM REPORT 1705 1444 NASRA LEOS DRAFT REPORT NASRA VAZQUEZ DO
[2018-03-24 16:00] VITALS: BP 144/48
[~2018-03-24 16:00] MED LIST changes: +PROTONIX40 MG PO
[2018-03-24 16:28] LABS: BASO % 0.3 % (0.0-1.0); EOS # 0.2 10*3/uL (0.0-0.4); EOS % 2.5 % (1.0-4.0); HEMATOCRIT 29.5 % (37.0-47.0); HEMOGLOBIN 7.8 g/dl (12.0-16.0); LYMPH # 1.2 10*3/uL (1.3-4.4); LYMPH % 17.2 % (27.0-41.0); MEAN CELL VOLUME 88.1 fl (81.0-99.0); MEAN CORPUSCULAR HGB 23.3 pg (27.0-31.0); MEAN CORPUSCULAR HGB CONC 26.4 g/dl (33.0-37.0); MEAN PLATELET VOLUME 8.8 fl (9.6-12.3); MONO # 0.7 10*3/uL (0.1-1.0); MONO % 10.1 % (3.0-9.0); NEUT # 4.6 10*3/uL (2.3-7.9); NEUT % 68.4 % (47.0-73.0); NUCLEATED RED BLOOD CELL 0.4 % (0.0-0.0); PLATELET COUNT AUTOMATED 216 10*3/uL (130-400); RED BLOOD COUNT 3.35 10*6/uL (4.10-5.10); RED CELL DISTRI WIDTH 19.4 % (0-14.5); WHITE BLOOD COUNT 6.8 10*3/uL (4.8-10.8)
[2018-03-24] MEDS ORDERED: AMARYL2 MG PO (16:35)
[2018-03-24 16:37] LABS: ACT PARTIAL THROMBO TIME 28.2 SECONDS (20.8-31.5); INTERNATIONAL NORM RATIO 1.1 (2.0-3.5)
[2018-03-24 16:44] VITALS: BP 147/64
[2018-03-24 16:50] LABS: ALBUMIN 3.2 gm/dl (3.1-4.5); ALKALINE PHOSPHATASE 74 U/L (45-117); BUN 46 mg/dl (7-24); CHLORIDE 99 mmol/L (98-107); CREATININE 1.84 mg/dL (0.55-1.02); LIPASE 56 U/L (73-393); POTASSIUM 5.1 mmol/L (3.5-5.1); SGOT/AST 12 IU/L (3-35); SGPT/ALT 15 U/L (12-78); SODIUM 139 mmol/L (136-145); TOTAL PROTEIN 7.5 gm/dL (6.4-8.2)
[2018-03-24 16:52] LABS: TROPONIN I < 0.015 ng/ml (<0.045)
[2018-03-24 17:30] VITALS: BP 137/46
[2018-03-24 18:00] VITALS: BP 154/52
[2018-03-24 18:50] VITALS: BP 138/56
[2018-03-25] VITALS: BP 147/65
[2018-03-25 04:00] VITALS: BP 131/43
[2018-03-25 08:00] VITALS: BP 156/71
[2018-03-25 12:00] VITALS: BP 162/60
[2018-03-25 16:00] VITALS: BP 175/64
[2018-03-25 20:00] VITALS: BP 157/56
[2018-03-26] VITALS: BP 150/46
[2018-03-26 08:00] VITALS: BP 143/62
[2018-03-26 12:00] VITALS: BP 129/59
[2018-03-26 16:00] VITALS: BP 131/43
[2018-03-26 20:00] VITALS: BP 128/46
[2018-03-27] VITALS: BP 146/54
[2018-03-27 06:26] LABS: BASO % 0.3 % (0.0-1.0); EOS # 0.1 10*3/uL (0.0-0.4); EOS % 1.1 % (1.0-4.0); HEMATOCRIT 30.6 % (37.0-47.0); HEMOGLOBIN 7.9 g/dl (12.0-16.0); LYMPH # 1.9 10*3/uL (1.3-4.4); LYMPH % 19.8 % (27.0-41.0); MEAN CELL VOLUME 87.9 fl (81.0-99.0); MEAN CORPUSCULAR HGB 22.7 pg (27.0-31.0); MEAN CORPUSCULAR HGB CONC 25.8 g/dl (33.0-37.0); MEAN PLATELET VOLUME 8.9 fl (9.6-12.3); MONO # 0.7 10*3/uL (0.1-1.0); MONO % 7.4 % (3.0-9.0); NEUT # 6.9 10*3/uL (2.3-7.9); NEUT % 70.7 % (47.0-73.0); NUCLEATED RED BLOOD CELL 0.2 % (0.0-0.0); PLATELET COUNT AUTOMATED 229 10*3/uL (130-400); RED BLOOD COUNT 3.48 10*6/uL (4.10-5.10); RED CELL DISTRI WIDTH 19.6 % (0-14.5); WHITE BLOOD COUNT 9.7 10*3/uL (4.8-10.8)
[2018-03-27 06:55] LABS: CREATININE 1.88 mg/dL (0.55-1.02); POTASSIUM 4.4 mmol/L (3.5-5.1)
[2018-03-27 08:00] VITALS: BP 146/54
[2018-03-27 12:00] VITALS: BP 136/53
[2018-03-27 16:00] VITALS: BP 142/74
[2018-03-27 20:00] VITALS: BP 139/53
[2018-03-28] VITALS: BP 128/60
[2018-03-28 07:07] LABS: BASO % 0.3 % (0.0-1.0); EOS # 0.2 10*3/uL (0.0-0.4); EOS % 2.3 % (1.0-4.0); HEMATOCRIT 31.4 % (37.0-47.0); HEMOGLOBIN 8.4 g/dl (12.0-16.0); LYMPH # 1.5 10*3/uL (1.3-4.4); MEAN CELL VOLUME 86.5 fl (81.0-99.0); MEAN CORPUSCULAR HGB 23.1 pg (27.0-31.0); MEAN CORPUSCULAR HGB CONC 26.8 g/dl (33.0-37.0); MEAN PLATELET VOLUME 9.2 fl (9.6-12.3); MONO # 0.7 10*3/uL (0.1-1.0); MONO % 8.1 % (3.0-9.0); NEUT # 6.3 10*3/uL (2.3-7.9); PLATELET COUNT AUTOMATED 251 10*3/uL (130-400); RED BLOOD COUNT 3.63 10*6/uL (4.10-5.10); RED CELL DISTRI WIDTH 19.1 % (0-14.5); WHITE BLOOD COUNT 8.8 10*3/uL (4.8-10.8)
[2018-03-28 07:25] LABS: CREATININE 1.64 mg/dL (0.55-1.02); POTASSIUM 4.4 mmol/L (3.5-5.1)
[2018-03-28 08:00] VITALS: BP 157/85
[2018-03-28 12:00] VITALS: BP 143/59
[2018-03-28 16:00] VITALS: BP 154/73
[2018-03-28] MEDS ORDERED: MEDROL DOSEPAK4 MG PO (18:36)
[2018-03-28] MEDS ORDERED: AUGMENTIN 875-875 MG PO (18:36)
== END 2018-03-28 20:00 | disposition home or self-care (01) | DRG 291 ==
LOC: ED 16:00 → 4E 17:32 → EDHOLD 17:32 → 4E 17:42
PROVIDERS: Emergency Medicine; Internal Medicine
DX: I50.33 Acute on chronic diastolic (congestive) heart failure (principal); J96.20 Acute and chronic respiratory failure, unspecified whether with hypoxia or hypercapnia; D68.51 Activated protein C resistance; D68.9 Coagulation defect, unspecified; E11.22 Type 2 diabetes mellitus with diabetic chronic kidney disease; N18.3 Chronic kidney disease, stage 3 (moderate); E66.2 Morbid (severe) obesity with alveolar hypoventilation; J44.1 Chronic obstructive pulmonary disease with (acute) exacerbation; Z68.44 Body mass index [BMI] 60.0-69.9, adult; D50.9 Iron deficiency anemia, unspecified; Z99.81 Dependence on supplemental oxygen; Z88.2 Allergy status to sulfonamides; Z88.8 Allergy status to other drugs, medicaments and biological substances; Z91.041 Radiographic dye allergy status; Z79.899 Other long term (current) drug therapy; Z79.01 Long term (current) use of anticoagulants; Z87.440 Personal history of urinary (tract) infections; Z90.49 Acquired absence of other specified parts of digestive tract; Z98.51 Tubal ligation status; Z98.42 Cataract extraction status, left eye; Z98.41 Cataract extraction status, right eye; Z83.3 Family history of diabetes mellitus; Z84.1 Family history of disorders of kidney and ureter; Z82.49 Family history of ischemic heart disease and other diseases of the circulatory system; Z80.9 Family history of malignant neoplasm, unspecified

== ENCOUNTER 2018-05-31 16:32 | Inpatient (IN) | payer OTHER ==
[~2018-05-31] VITALS: Wt 188.7 kg
--- NOTE | ~2018-05-31 | PR ---
[place], [place] PROGRESS NOTE NAME: RIRI PETERSON UNIT #: [id number] ROOM: 426 DOCTOR: QUENTIN DEVLIN MD BIRTHDATE: [birth year] DOS: 06/03/2018 SUBJECTIVE: She is sitting eating her supper. She tells me that she is breathing very well. She feels much improved from the time she came to the hospital. She has been drinking a reasonable amount and claims that she has been urinating a lot and all in the commode. No chest pain or palpitation. OBJECTIVE: GENERAL: She is a patient who is extremely obese. VITAL SIGNS: Pulse is 70. Blood pressure 120/42. NECK: JVP appears to be normal. LUNGS: Clear with reduced breath sounds because of obesity. EXTREMITIES: Large legs with minimal pitting edema. I's and O's have been even. LABORATORY DATA: Chemistry profile was not done today. Yesterday, BUN was 45 and creatinine 1.82, both of them higher than the day before. IMPRESSION: This patient's diastolic heart failure seems to be under better control and there is additional worry of renal insufficiency. She can be sent home and I would recommend using torsemide as a loop diuretic rather than bumetanide or furosemide. QUENTIN DEVLIN MD CM:PNTRANS [phone] QUENTIN DEVLIN MD 06/04/18 0404 interface
--- NOTE | ~2018-05-31 | PR ---
[place], [place] PROGRESS NOTE NAME: RIRI PETERSON UNIT #: [id number] ROOM: 426 DOCTOR: GILBERTO GUERRA MD BIRTHDATE: [birth year] DOS: SUBJECTIVE: The patient is feeling much better, does not have any new complaints. OBJECTIVE: VITAL SIGNS: Graphic trend shows pressure 126/51, pulse of 72, respirations 19, and temperature 98.4. LUNGS: Clear. HEART: Regular. ABDOMEN: Obese, soft, nontender. EXTREMITIES: Decreasing edema. LABORATORY DATA: Basic metabolic panel this morning with a BUN of 44, creatinine of 1.89, sodium 142, and potassium 4.4. ASSESSMENT AND PLAN: 1. Acute diastolic congestive heart failure, improving. 2. Chronic kidney disease stage 3, stable. 3. Benign hypertension, controlled. 4. Type 2 diabetes. Blood sugars are also well controlled. PLAN: The patient is advised to lose more weight. The plan is to discharge her to home today. Follow up as an outpatient. GILBERTO GUERRA MD CM:PNTRANS [phone] GILBERTO GUERRA MD 06/06/18 0027 interface
--- NOTE | ~2018-05-31 | CON ---
[place], [place] REPORT OF CONSULTATION NAME: RIRI PETERSON UNIT #: [id number] ROOM: 426 DOCTOR: QUENTIN DEVLIN MD BIRTHDATE: [birth year] DOS: 06/01/2018 HISTORY OF PRESENT ILLNESS: This is a 53-year-old -[place] woman with extreme obesity, essential hypertension, chronic kidney disease, type 2 diabetes mellitus, chronic respiratory failure, obstructive sleep apnea, but only uses oxygen at home. She has chronic diastolic heart failure with some exacerbations every now and then. She has been in this hospital 2 or 3 times now with increasing shortness of breath and more swelling and had been diuresed using intravenous loop diuretics. She does not smoke nor does she drink alcoholic beverages. From a previous note, it seems that she probably consume a fair amount of salt through soda drinks, otherwise she seemed careful with her salt intake. She had noticed increasing shortness of breath of several days duration before she was admitted. She is usually short of breath with exertion in any way. There had not been any fever, chills or cough. She had no palpitations. She does have left breast area discomfort when she lies on her left side, but otherwise when she is walking around, she does not have any chest pain or tightness in the chest. There has not been any loss of consciousness. She had an echocardiogram done in mid March 2018, which showed an LVEF of 65% and dilated right ventricle, normal right ventricular systolic function, biatrial enlargement and a [id number] tricuspid regurgitation, severe pulmonary hypertension with pulmonary artery systolic pressure of 61 mmHg. HOME MEDICATIONS: Included Advair, DuoNeb, alprazolam 0.5 mg t.i.d., oxygen 3 liters per minute, bumetanide 2 mg b.i.d., carvedilol 12.5 b.i.d., glimepiride 2 mg daily and oxycodone, Protonix, and Xarelto 20 mg daily and insulin aspart. PHYSICAL EXAMINATION: GENERAL: This reveals patient is much malodor about her and this probably from not breathing. She is extremely obese and has oxygen by mask. She is alert, oriented, but is tachypneic. Temperature is normal. VITAL SIGNS: Pulse is irregular at 88 beats per minute and blood pressure 120/70. NECK: JVP difficult to assess. AJR appeared to be positive. She has moderate edema in the lower extremities with little difficult to pit. RESPIRATORY: Breath sounds are diminished with a few adventitious sounds, some more in the right base. DIAGNOSTIC DATA: Chest x-ray demonstrated edema. LABORATORY DATA: ECG was unremarkable. Troponin I levels were normal x 3. Hemoglobin 8.4 g/dL. BUN 38, creatinine 1.59. Estimated GFR 34 mL per minute. Magnesium 2.4, potassium 4.4, sodium 138. IMPRESSION: 1. This patient has chronic diastolic heart failure and has been taking bumetanide p.o. regularly. We are treating the patient with IV bumetanide, nothing that is very appropriate and this should be continued until [facility] and [place], [place] REPORT OF CONSULTATION NAME: RIRI PETERSON UNIT #: [id number] ROOM: 426 DOCTOR: QUENTIN DEVLIN MD BIRTHDATE: [birth year] creatinine begin to creep up. She may require a larger dose of bumetanide at home. Other alternative would be to use torsemide, which is better absorbed and last longer. 2. Chest pain, sensing no chest pain and no workup is necessary. I thank you for this consult. QUENTIN DEVLIN MD CM:CONSTR:REPORT OF CONSULTATION 1121 06/01/18 1603 interface GILBERTO GUERRA MD
--- NOTE | ~2018-05-31 | PR ---
[place], [place] PROGRESS NOTE NAME: RIRI PETERSON UNIT #: [id number] ROOM: 426 DOCTOR: FANTA GARDUNO MD BIRTHDATE: [birth year] DOS: 06/03/2018 SUBJECTIVE: The patient's breathing is improving with treatment. OBJECTIVE: VITAL SIGNS: Blood pressure 120/42, heart rate 67 beats per minute, breathing 20 times per minute, temperature 98 degrees Fahrenheit. GENERAL APPEARANCE: The patient is alert and oriented x 3, in no visible distress, morbid obesity. HEENT AND NECK: Exam within normal limits. CARDIOVASCULAR SYSTEM: Heart rate is regular in rate and rhythm. S1 and S2 normally audible. LUNGS: Clear to auscultation. ABDOMEN: Soft, nontender. No obvious organomegaly. Bowel sounds are present. EXTREMITIES: Without significant cyanosis or edema. IMPRESSION: 1. The patient with acute over chronic diastolic type congestive heart failure, being treated with IV Bumex and the patient diuresing and her breathing is improving. 2. Urinary tract infection with Escherichia coli, covered by ceftriaxone. 3. Morbid obesity. The patient working with dietary. 4. Chronic kidney disease stage 3B. I will repeat serum electrolytes, BUN and creatinine tomorrow. 5. Benign essential hypertension. Blood pressures have been monitored and treated. FANTA GARDUNO MD CM:PNTRANS [id number] FANTA GARDUNO MD 06/04/18 0241 interface
--- NOTE | ~2018-05-31 | PR ---
[place], [place] PROGRESS NOTE NAME: RIRI PETERSON UNIT #: [id number] ROOM: 426 DOCTOR: FANTA GARDUNO MD BIRTHDATE: [birth year] DOS: 06/04/2018 SUBJECTIVE: The patient continues to breathe better. OBJECTIVE: VITAL SIGNS: Blood pressure 124/39, heart rate of 66 beats per minute, breathing normally, afebrile. IMPRESSION: 1. The patient with morbid obesity, working with dietary. 2. Acute over chronic diastolic type congestive heart failure, being diuresed with IV Bumex and improving. 3. Urinary tract infection with Escherichia coli, covered by ceftriaxone. 4. Chronic kidney disease, stage 3B. BUN and creatinine and serum electrolytes are being monitored. 5. Benign essential hypertension, treated and controlled. FANTA GARDUNO MD CM:PNTRANS 45 FANTA GARDUNO MD 06/04/182043 interface
--- NOTE | ~2018-05-31 | PR ---
[place], [place] PROGRESS NOTE NAME: RIRI PETERSON UNIT #: [id number] ROOM: 426 DOCTOR: GILBERTO GUERRA MD BIRTHDATE: [birth year] DOS: SUBJECTIVE: The patient is doing better, does not have any new complaints. She continues to diurese. OBJECTIVE: VITAL SIGNS: Graphic shows a pressure 129/36, pulse of 66, respirations 18, temperature 97. LUNGS: Diminished breath sounds. No wheezes, rales, rhonchi heard this morning. HEART: Regular. ABDOMEN: Obese with significant anasarca and abdominal wall edema. LABORATORY DATA: Urine culture 50,000 colonies E. coli. BMP this morning, glucose 112, BUN 45, creatinine 1.82, sodium 142, potassium 4.2, chloride 99, bicarbonate 41. ASSESSMENT AND PLAN: 1. The patient with chronic diastolic congestive heart failure with an acute failure in admission. IV Bumex is to be continued. 2. Chronic renal failure. Kidney functions this morning shows some slight worsening with alkalosis suggesting that the patient may be developing maybe over diuresing. We will cut back on the diuretics. 3. Obstructive sleep apnea, start CPAP at night. GILBERTO GUERRA MD CM:PNTRANS 1 39 GILBERTO GUERRA MD 06/28/18 0517 interface
--- NOTE | ~2018-05-31 | EKG ---
[place], [place] ELECTROCARDIOGRAM REPORT NAME: RIRI PETERSON UNIT #: [id number] ROOM: 426 DOCTOR: KRANTHI DRAFT REPORT BIRTHDATE: [birth year] [facility] Test Date: 2018-05-31 Test Time: 16:58:11 Pat Name: RIRI PETERSON Department: Room: 426 Gender: F Director Of Convention Services: EKG.NH : 1965 Requested By: JEREMY TELLEZ PA-C Order Number: [id number] Reading MD: Ronnie Lal MD Measurements Intervals [place] Rate: 58 P: -6 ME: 149 QRS: 41 QRSD: 96 T: 23 QT: 407 QTc: 400 Interpretive Statements Sinus rhythm Atrial premature complex Borderline T abnormalities, anterior leads Compared to ECG 04/27/2018 17:45:06 Atrial premature complex(es) now present T-wave abnormality now present Electronically Signed On 06-02-2018 12:36:27 PDT by Ronnie Lal MD CM:EKGRPT:ELECTROCARDIOGRAM REPORT [id number] JEREMY TELLEZ PA-C EPIPHANY DRAFT REPORT JEREMY TELLEZ PA-C
--- NOTE | ~2018-05-31 | PR ---
[place], [place] PROGRESS NOTE NAME: RIRI PETERSON UNIT #: [id number] ROOM: 426 DOCTOR: QUENTIN DEVLIN MD BIRTHDATE: [birth year] DOS: 06/02/2018 SUBJECTIVE: She is getting aerosol treatment for bronchodilatation. She tells me that her breathing is better than when she came from home and very little cough. She has no palpitation, dizziness, has not walked much. Her appetite is fine, and all in all, she feels reasonably well. PHYSICAL EXAMINATION: GENERAL: She is alert. VITAL SIGNS: Pulse is 72, regular. Blood pressure 129/48. NECK: JVP is difficult to assess, but seems to be normal. LUNGS: She has a very few crackles in the lungs. EXTREMITIES: Mild edema in the lower extremity that is little difficult to pit. LABORATORY DATA: BUN is 45, creatinine 1.82. Both of them are from yesterday. Potassium is 3.5. IMPRESSION: This patient has diastolic heart failure and is better compensated now. I think another day or so of IV bumetanide is okay. Her kidney function is likely to get worse and she should be switched over to oral preparation of loop diuretic. QUENTIN DEVLIN MD CM:PNTRANS 1640 QUENTIN DEVLIN MD 06/03/18 0230 interface
--- NOTE | ~2018-05-31 | DS ---
[place], [place] DISCHARGE SUMMARY NAME: RIRI PETERSON UNIT #: [id number] ROOM: 426 DOCTOR: GILBERTO GUERRA MD BIRTHDATE: [birth year] DOS: 06/05/2018 DIAGNOSES: 1. Acute diastolic congestive heart failure. 2. Morbid obesity. 3. Obstructive sleep apnea. 4. Benign hypertension. 5. Factor V Leiden mutation. 6. Type 2 diabetes, insulin-dependent. 7. Urinary tract infection with 50,000 colonies. HOSPITAL COURSE: The patient's recent cardiac workup negative. A 53-year-old comes in with complaints of difficulty breathing. Please refer to H and P for details. The patient was admitted to the hospital with complaints of increasing shortness of breath. After admission, she had a rule out DE protocol, which came back negative. Consultation with Cardiology was obtained. Blood cultures and urine cultures were obtained. She has chronic kidney disease stage 3. Nephrotoxic meds were avoided. IV diuretics were given with some improvement in the swelling. She has also lost some weight. Kidney functions are stable even on the high dose of diuretics. Dr. Lal did see the patient and agreed on the continued current treatment plan. EKG showed sinus atrial premature complexes. No other abnormalities were noticed. The patient is stable and improving. The plan is to discharge her to home today to follow up as an outpatient. DISCHARGE MEDICATIONS: Will be torsemide 20 b.i.d., Xanax 0.5 t.i.d. p.r.n., insulin pump, oxygen, Coreg 12.5 twice a day, Advair 500 b.i.d., oxycodone 10 q. 6, breathing treatments DuoNeb q. 4 hours, Protonix 40 daily, glimepiride 4 mg daily, Xarelto 20 daily and Ceftin 250 twice a day for 5 days. GILBERTO GUERRA MD CM:DISCHARG 0 1202 GILBERTO GUERRA MD 06/05/18 1200 interface
--- NOTE | ~2018-05-31 | WRIGHTHP ---
[place], [place] PATIENT HISTORY AND PHYSICAL EXAM NAME: RIRI PETERSON UNIT #: [id number] ROOM: 426 DOCTOR: GILBERTO GUERRA MD BIRTHDATE: [birth year] DOS: 05/31/2018 HISTORY OF PRESENT ILLNESS: The patient is 53-year-old, very well known to us, comes in with complaints of increasing shortness of breath. She denies having any chest pains, palpitations, having increased leg edema. Does not have any nausea and emesis or fever or chills. PAST MEDICAL HISTORY: Significant for: 1. Multiple admissions for acute diastolic CHF. 2. Obstructive sleep apnea. 3. Morbid obesity. 4. Benign hypertension. 5. Factor V Leiden mutation, on long-term use of anticoagulants. MEDICATIONS: She is on oxygen, Advair, breathing treatments, Xanax 0.5 t.i.d. p.r.n., Bumex, carvedilol, glyburide, oxycodone, Protonix, Xarelto. SOCIAL HISTORY: Nonsmoker, does not use any alcohol. She lives at home. PHYSICAL EXAMINATION: GENERAL: She is awake and alert and oriented. VITAL SIGNS: Graphic trend shows blood pressure of 132/70, pulse of 80, respirations 14, afebrile. LUNGS: Diminished breath sounds. No wheezes, rales, rhonchi heard this morning. HEART: Regular. ABDOMEN: Obese, soft. EXTREMITIES: Anasarca noted including the abdominal wall edema. ASSESSMENT AND PLAN: 1. Acute diastolic congestive heart failure, patient is placed on IV diuretics. 2. Morbid obesity with obesity hypoventilation, currently using oxygen and saturating well. 3. Chest pain, rule out myocardial infarction protocol was ordered, awaiting Cardiology input. 4. Type 2 diabetes mellitus, insulin-dependent. Continue insulin pump. Blood sugar is to be checked twice daily. [place], [place] PATIENT HISTORY AND PHYSICAL EXAM NAME: RIRI PETERSON UNIT #: [id number] ROOM: 426 DOCTOR: GILBERTO GUERRA MD BIRTHDATE: [birth year] GILBERTO GUERRA MD CM:HISPHYS:PATIENT HISTORY AND PHYSICAL EXAMINATION 0907 [id number] GILBERTO GUERRA MD 06/27/18 1142 interface
[~2018-05-31 16:32] MED LIST changes: +AMARYL2 MG PO; +AUGMENTIN 875-875 MG PO
[2018-05-31 16:33] VITALS: BP 143/47
[2018-05-31 17:41] LABS: BASO % 0.3 % (0.0-1.0); EOS # 0.2 10*3/uL (0.0-0.4); EOS % 1.8 % (1.0-4.0); HEMATOCRIT 30.5 % (37.0-47.0); HEMOGLOBIN 8.4 g/dl (12.0-16.0); LYMPH # 1.3 10*3/uL (1.3-4.4); LYMPH % 12.8 % (27.0-41.0); MEAN CELL VOLUME 83.8 fl (81.0-99.0); MEAN CORPUSCULAR HGB 23.1 pg (27.0-31.0); MEAN CORPUSCULAR HGB CONC 27.5 g/dl (33.0-37.0); MEAN PLATELET VOLUME 8.6 fl (9.6-12.3); MONO # 0.6 10*3/uL (0.1-1.0); MONO % 5.3 % (3.0-9.0); NEUT # 8.3 10*3/uL (2.3-7.9); NEUT % 79.4 % (47.0-73.0); PLATELET COUNT AUTOMATED 235 10*3/uL (130-400); RED BLOOD COUNT 3.64 10*6/uL (4.10-5.10); WHITE BLOOD COUNT 10.4 10*3/uL (4.8-10.8)
[2018-05-31 17:49] LABS: INTERNATIONAL NORM RATIO 1.1 (2.0-3.5)
[2018-05-31 17:54] LABS: BILIRUBIN NEGATIVE (NEGATIVE); BLOOD 2+ (NEGATIVE); CLARITY CLEAR (CLEAR); COLOR YELLOW (YELLOW); GLUCOSE TRACE (NEGATIVE); KETONE NEGATIVE (NEGATIVE); LEUKO ESTERASE TRACE (NEGATIVE); NITRITE NEGATIVE (NEGATIVE); PH 5.5 (5.0-9.0); SPECIFIC GRAVITY 1.015 (1.005-1.030); UROBILINOGEN 0.2 E.U./dl (0.2-1.0)
[2018-05-31 17:58] LABS: ALBUMIN 3.2 gm/dl (3.1-4.5); ALKALINE PHOSPHATASE 90 U/L (45-117); BUN 38 mg/dl (7-24); CHLORIDE 98 mmol/L (98-107); CREATININE 1.59 mg/dL (0.55-1.02); POTASSIUM 4.4 mmol/L (3.5-5.1); SGOT/AST 9 IU/L (3-35); SGPT/ALT 14 U/L (12-78); SODIUM 138 mmol/L (136-145); TOTAL PROTEIN 7.3 gm/dL (6.4-8.2)
[2018-05-31 18:05] LABS: BACTERIA 1+
[2018-05-31 18:08] LABS: TROPONIN I < 0.015 ng/ml (<0.045)
[2018-05-31 20:00] VITALS: BP 149/58
[2018-06-01] VITALS: BP 160/54
[2018-06-01 08:00] VITALS: BP 120/70
[2018-06-01 12:00] VITALS: BP 141/61
[2018-06-01 16:00] VITALS: BP 135/52
[2018-06-01 20:00] VITALS: BP 132/40
[2018-06-02] VITALS: BP 129/36
[2018-06-02 07:09] LABS: CREATININE 1.82 mg/dL (0.55-1.02); POTASSIUM 4.2 mmol/L (3.5-5.1)
[2018-06-02 08:00] VITALS: BP 128/56
[2018-06-02 16:00] VITALS: BP 129/48
[2018-06-02 20:00] VITALS: BP 139/49
[2018-06-03 00:52] VITALS: BP 141/50
[2018-06-03 12:00] VITALS: BP 145/57
[2018-06-03 16:00] VITALS: BP 120/42
[2018-06-03 20:00] VITALS: BP 139/49
[2018-06-04] VITALS: BP 128/44
[2018-06-04 07:17] LABS: CREATININE 1.67 mg/dL (0.55-1.02); POTASSIUM 4.5 mmol/L (3.5-5.1)
[2018-06-04 08:50] VITALS: BP 126/66
[2018-06-04 12:00] VITALS: BP 139/56
[2018-06-04 16:00] VITALS: BP 124/39
[2018-06-04 20:00] VITALS: BP 140/61
[2018-06-05] VITALS: BP 122/38
[2018-06-05 06:25] LABS: CREATININE 1.89 mg/dL (0.55-1.02); POTASSIUM 4.4 mmol/L (3.5-5.1)
[2018-06-05 08:00] VITALS: BP 126/51
[2018-06-05] MEDS ORDERED: TORSEMIDE20 MG PO (08:56)
[2018-06-05] MEDS ORDERED: CEFUROXIME AXE250 MG PO (08:58)
== END 2018-06-05 13:23 | disposition home or self-care (01) | DRG 291 ==
LOC: ED 16:32 → EDHOLD 18:18 → 4E 18:18
PROVIDERS: Internal Medicine; Physician Assistant
DX: I13.0 Hypertensive heart and chronic kidney disease with heart failure and stage 1 through stage 4 chronic kidney disease, or unspecified chronic kidney disease (principal); I50.33 Acute on chronic diastolic (congestive) heart failure; N39.0 Urinary tract infection, site not specified; D68.51 Activated protein C resistance; E87.3 Alkalosis; J96.11 Chronic respiratory failure with hypoxia; E11.22 Type 2 diabetes mellitus with diabetic chronic kidney disease; B96.20 Unspecified Escherichia coli [E. coli] as the cause of diseases classified elsewhere; I27.20 Pulmonary hypertension, unspecified; I07.1 Rheumatic tricuspid insufficiency; E66.01 Morbid (severe) obesity due to excess calories; G47.33 Obstructive sleep apnea (adult) (pediatric); N18.3 Chronic kidney disease, stage 3 (moderate); R07.9 Chest pain, unspecified; Z99.81 Dependence on supplemental oxygen; Z87.891 Personal history of nicotine dependence; Z88.1 Allergy status to other antibiotic agents; Z88.2 Allergy status to sulfonamides; Z91.048 Other nonmedicinal substance allergy status; Z98.51 Tubal ligation status; Z90.49 Acquired absence of other specified parts of digestive tract; Z83.3 Family history of diabetes mellitus; Z84.1 Family history of disorders of kidney and ureter; Z82.49 Family history of ischemic heart disease and other diseases of the circulatory system; Z80.9 Family history of malignant neoplasm, unspecified

== ENCOUNTER 2018-10-18 15:14 | Emergency (ER) | payer OTHER ==
[~2018-10-18] VITALS: Ht 175.2 cm; Wt 186.9 kg
[~2018-10-18 15:14] MED LIST changes: +TORSEMIDE20 MG PO
[2018-10-18 15:17] VITALS: BP 154/63
[2018-10-18 15:58] LABS: BILIRUBIN NEGATIVE (NEGATIVE); BLOOD 1+ (NEGATIVE); CLARITY CLEAR (CLEAR); COLOR YELLOW (YELLOW); GLUCOSE TRACE (NEGATIVE); KETONE NEGATIVE (NEGATIVE); LEUKO ESTERASE NEGATIVE (NEGATIVE); NITRITE NEGATIVE (NEGATIVE); PH 5.5 (5.0-9.0); SPECIFIC GRAVITY <= 1.005 (1.005-1.030); UROBILINOGEN 0.2 E.U./dl (0.2-1.0)
[2018-10-18 16:42] LABS: ACT PARTIAL THROMBO TIME 25.9 SECONDS (20.8-31.5)
[2018-10-18 16:49] LABS: CREATININE 1.77 mg/dL (0.55-1.02); POTASSIUM 4.8 mmol/L (3.5-5.1); TOTAL PROTEIN 7.8 gm/dL (6.4-8.2)
[2018-10-18 17:16] LABS: BASO % 0.2 % (0.0-1.0); EOS # 0.2 10*3/uL (0.0-0.4); EOS % 1.2 % (1.0-4.0); HEMATOCRIT 34.2 % (37.0-47.0); HEMOGLOBIN 10.2 g/dl (12.0-16.0); LYMPH # 1.9 10*3/uL (1.3-4.4); LYMPH % 12.5 % (27.0-41.0); MEAN CELL VOLUME 80.1 fl (81.0-99.0); MEAN CORPUSCULAR HGB 23.9 pg (27.0-31.0); MEAN CORPUSCULAR HGB CONC 29.8 g/dl (33.0-37.0); MEAN PLATELET VOLUME 8.8 fl (9.6-12.3); MONO # 0.8 10*3/uL (0.1-1.0); MONO % 4.9 % (3.0-9.0); NEUT # 12.4 10*3/uL (2.3-7.9); NEUT % 80.6 % (47.0-73.0); PLATELET COUNT AUTOMATED 256 10*3/uL (130-400); RED BLOOD COUNT 4.27 10*6/uL (4.10-5.10); RED CELL DISTRI WIDTH 17.5 % (0-14.5); WHITE BLOOD COUNT 15.3 10*3/uL (4.8-10.8)
[2018-10-18] MEDS ORDERED: CEFADROXIL500 M1 PO (17:23)
== END 2018-10-18 17:38 | disposition home or self-care (01) ==
LOC: ED 15:14
PROVIDERS: Physician Assistant
DX: N93.9 Abnormal uterine and vaginal bleeding, unspecified (principal); N76.4 Abscess of vulva; Z79.899 Other long term (current) drug therapy; Z88.2 Allergy status to sulfonamides; Z88.1 Allergy status to other antibiotic agents

== ENCOUNTER 2018-10-28 13:06 | Inpatient (IN) | payer OTHER ==
[~2018-10-28] VITALS: Ht 175.2 cm; Wt 181.9 kg
--- NOTE | ~2018-10-28 | PR ---
[place], [place] PROGRESS NOTE NAME: RIRI PETERSON UNIT #: [id number] ROOM: 532 DOCTOR: GILBERTO GUERRA MD BIRTHDATE: [birth year] DOS: SUBJECTIVE: The patient is doing well, does not have any new complaints. Her bleeding has slowed down. OBJECTIVE: VITAL SIGNS: Blood pressure 133/44, pulse of 76, respirations 18, temperature 98.3. LUNGS: Clear. HEART: Regular. ABDOMEN: Soft. EXTREMITIES: Without any edema. ASSESSMENT AND PLAN: 1. Menorrhagia. Awaiting vaginal ultrasound. I discontinued the Xarelto, waiting for the ultrasound findings before placing her back on medications. 2. Anemia, iron deficiency. Blood transfusion was ordered. One dose of iron infusion will be given today. GILBERTO GUERRA MD CM:PNJOSE L [id number] 1354 GILBERTO GUERRA MD 10/30/18 1354 interface
--- NOTE | ~2018-10-28 | PR ---
[place], [place] PROGRESS NOTE NAME: RIRI PETERSON UNIT #: [id number] ROOM: 532 DOCTOR: FANTA GARDUNO MD BIRTHDATE: [birth year] DOS: 11/01/2018 SUBJECTIVE: The patient presently admitted for uncontrolled diabetes mellitus. Blood sugars are being monitored. OBJECTIVE: GENERAL APPEARANCE: The patient is alert and oriented x 3, in no visible distress. Obesity. VITAL SIGNS: Stable. HEENT AND NECK: Exam within normal limits. CARDIOVASCULAR SYSTEM: Heart rate is regular in rate and rhythm. S1 and S2 normally audible. LUNGS: Clear to auscultation. ABDOMEN: Soft, nontender. No obvious organomegaly. Bowel sounds are present. EXTREMITIES: Without significant cyanosis or edema. IMPRESSION: The patient is feeling much better. Blood sugars are being monitored and treated. She was educated on diabetes and sugar control. Blood sugars being monitored and treated and the patient is feeling better and sugars are better controlled, so she is being discharged to home to follow up with Dr. Wolf as an outpatient within a week. FANTA GARDUNO MD CM:PNTRANS 1826 1150 FANTA GARDUNO MD 11/02/18 1151 interface
--- NOTE | ~2018-10-28 | PR ---
[place], [place] PROGRESS NOTE NAME: RIRI PETERSON UNIT #: [id number] ROOM: 532 DOCTOR: GILBERTO GUERRA MD BIRTHDATE: [birth year] DOS: SUBJECTIVE: The patient is doing fairly well. Her bleeding has slowed down. Vaginal ultrasound did not show any thickening of the endometrium, but this was a poor study. OBJECTIVE: VITAL SIGNS: Blood pressure 116/62, pulse of 70, respirations 20, temperature 98.1. LUNGS: Diminished breath sounds, clear. HEART: Regular. ABDOMEN: Obese. EXTREMITIES: No edema. This morning, chronic lymphedema noted, which is also much improved. LABORATORY DATA: White cell count is 12.7, hemoglobin 7.5, hematocrit 26.5, platelets 259. BMP: Glucose 64, BUN 40, creatinine 1.68, sodium 140, potassium 4.2, chloride 100, bicarbonate 32. ASSESSMENT AND PLAN: 1. Menorrhagia. So far, we have not been able to pinpoint the exact reason for her heavy menstrual periods. This could be related to Xarelto, which has been discontinued. 2. Chronic kidney disease with interval worsening of kidney functions. This patient may not be a good candidate for Xarelto. We will discontinue medicine and place on Coumadin. 3. Factor V Leiden mutation, on long-term use of anticoagulants. Consider Lovenox and Coumadin for right now. 4. Type 2 diabetes mellitus with hyperglycemia, insulin pump rate was increased. The blood sugars are much better controlled. GILBERTO GUERRA MD CM:PNTRANS GILBERTO GUERRA MD 10/31/1848 interface
--- NOTE | ~2018-10-28 | WRIGHTHP ---
[place], [place] PATIENT HISTORY AND PHYSICAL EXAM [id number] UN[facility] #: [id number] ROOM: 532 DOCTOR: GILBERTO GUERRA MD BIRTHDATE: [birth year] DOS: HISTORY OF PRESENT ILLNESS: The patient is 53 years old. The patient is very well known to us. The patient has had some increased gynecological bleed for the last few weeks, was supposed to see a gynie on Tuesday, but was unable to make it. She says for the last 3-4 days, she is unable to even stand up, her clots keep pouring out of her as per the patient. She denies having any chest pains or palpitations, does not have any fever or chills, does not have any nausea and emesis, minimal abdominal discomfort and cramping pain is present. She states that she has been taking her insulin regularly, using a pump and does not eat anything unusually high in sugar. PAST MEDICAL HISTORY: Significant for; 1. Type 2 diabetes mellitus. 2. Morbid obesity with a BMI of 50. 3. COPD with chronic respiratory failure. 4. Chronic kidney disease. 5. Obstructive sleep apnea. 6. Factor V Leiden mutation. 7. Benign hypertension. 8. Chronic low back pain. MEDICATIONS: She is on currently are oxygen, Advair, Xanax 0.5 t.i.d. p.r.n., Bumex 2 mg, Coreg 12.5 mg b.i.d., Amaryl 2 mg daily, oxycodone 10 q. 6, Protonix 40 daily, Xarelto 20 at bedtime. SOCIAL HISTORY: Nonsmoker, does not use any alcohol. PHYSICAL EXAMINATION: GENERAL: She is awake and alert and oriented. VITAL SIGNS: Blood pressure is 139/53, pulse of 68, respirations 16, temperature 98.0. LUNGS: Diminished breath sounds, clear. HEART: Regular. ABDOMEN: Obese, soft, nontender. EXTREMITIES: Without any edema. LABORATORY DATA: Shows a white cell count of 12.8, hemoglobin 8.6, hematocrit 29.2, platelets 280. Comprehensive glucose 619, BUN 49, creatinine 2.04. Sodium 134, potassium 5.1, chloride 92, bicarbonate 35. Iron was 26. B12 was 809. Ferritin 23.1. ASSESSMENT AND PLAN: 1. Menorrhagia, awaiting a vaginal ultrasound tomorrow. Further workup once we have the results of the vaginal ultrasound. 2. Precipitous drop in hematocrit from the vaginal bleed, one unit of transfusion will be ordered. The patient possibly will be started on iron infusions tomorrow because the ferritin and iron are both low. 3. Chronic respiratory failure, stable without any exacerbations. 4. Type 2 diabetes mellitus with hyperglycemia. Blood sugar was in the [place], [place] PATIENT HISTORY AND PHYSICAL EXAM NAME: RIRI PETERSON UNIT #: [id number] ROOM: [facility] DOCTOR: GILBERTO GUERRA MD BIRTHDATE: [birth year] 500s-600s when she arrived. Pump rate will be increased to 4 units an hour and coverage scale has been ordered. 5. Factor V Leiden mutation. The patient's Xarelto will be discontinued right now because of the severity of the bleed. GILBERTO GUERRA MD CM:HISPHYS:PATIENT HISTORY AND PHYSICAL EXAMINATION 0838 7 GILBERTO GUERRA MD 10/29/18 0909 interface
--- NOTE | ~2018-10-28 | DS ---
[place], [place] DISCHARGE SUMMARY NAME: RIRI PETERSON UNIT #: [id number] ROOM: 532 DOCTOR: GILBERTO GUERRA MD BIRTHDATE: [birth year] DOS: 11/01/2018 HOSPITAL COURSE: This patient is very well known to us, gets admitted to the hospital with complaints of heavy periods. Please refer H and P for details. After admission, the patient was anemic, did receive 1 unit of blood transfusion. The patient also was found to be iron deficient, did receive three iron infusions. A vaginal ultrasound and a CT of the abdomen and pelvis were also ordered, which have come back negative. The patient does have chronic renal insufficiency and it was thought that the Xarelto may not be a good combination with her kidney issues, so we discontinued the Xarelto and placed on Lovenox and Coumadin. After the Xarelto was discontinued, the patient's bleeding seems to have slowed down and the patient was discharged to home on ____. DISCHARGE MEDICATIONS: Lovenox, oxygen 3 liters, Advair 500, Xanax 0.5 t.i.d. p.r.n., Coreg 12.5 b.i.d., Ceftin 250 twice a day, glimepiride 2 mg daily, oxycodone 10 q. 6, Protonix 40 daily, Xarelto was discontinued, Bumex 2 mg daily, breathing treatments with DuoNeb q. 6 hours. Visiting nurses will be consulted, so they can check protimes as an outpatient and further adjustments in Coumadin will be made once the protime becomes therapeutic. GILBERTO GUERRA MD CM:DISCHARG 0840 [id number] GILBERTO GUERRA MD 11/09/18 1507 interface
[~2018-10-28 13:06] MED LIST changes: +CEFADROXIL500 M1 PO
[2018-10-28 13:10] VITALS: BP 169/57
[2018-10-28 14:00] LABS: BASO # 0.1 10*3/uL (0.0-0.1); BASO % 0.4 % (0.0-1.0); EOS # 0.1 10*3/uL (0.0-0.4); EOS % 0.7 % (1.0-4.0); HEMATOCRIT 29.2 % (37.0-47.0); HEMOGLOBIN 8.6 g/dl (12.0-16.0); LYMPH # 1.3 10*3/uL (1.3-4.4); LYMPH % 10.1 % (27.0-41.0); MEAN CORPUSCULAR HGB 24.4 pg (27.0-31.0); MEAN CORPUSCULAR HGB CONC 29.5 g/dl (33.0-37.0); MEAN PLATELET VOLUME 8.8 fl (9.6-12.3); MONO # 0.5 10*3/uL (0.1-1.0); MONO % 4.2 % (3.0-9.0); NEUT # 10.8 10*3/uL (2.3-7.9); NEUT % 84.1 % (47.0-73.0); PLATELET COUNT AUTOMATED 280 10*3/uL (130-400); RED BLOOD COUNT 3.52 10*6/uL (4.10-5.10); RED CELL DISTRI WIDTH 17.8 % (0-14.5); WHITE BLOOD COUNT 12.8 10*3/uL (4.8-10.8)
[2018-10-28 14:18] LABS: ALBUMIN 2.9 gm/dl (3.1-4.5); CREATININE 2.04 mg/dL (0.55-1.02); POTASSIUM 5.1 mmol/L (3.5-5.1); TOTAL PROTEIN 7.5 gm/dL (6.4-8.2)
--- NOTE | 2018-10-28 14:22 | NUR ---
GLUCOSE @ [address] RABAGO NOTIFIED.
[2018-10-28 15:45] VITALS: BP 169/56
--- NOTE | 2018-10-28 15:45 | NUR ---
A 53, admitted to 5E, under the services of GILBERTO Lenz MD with a diagnosis of UNCONTROLLED DM. Chief complaint is VAGINAL BLEEDING. Patient arrived via ambulatory from ER. Monitor applied. Initial assessment completed. Vital signs taken and recorded. GILBERTO LENZ MD notified of admission to the unit. Orders received. See assessment for past medical history, medications and allergies. Patient and/or family oriented to unit. [facility] visitation policy reviewed. Clothing/patient valuable form completed. CARLITO LOYA A
[2018-10-28] MEDS ORDERED: BUMETANIDE1 MG PO (16:04)
[2018-10-28] MEDS ORDERED: BUMETANIDE2 MG PO (16:05)
--- NOTE | 2018-10-28 16:06 | NUR ---
MED REC UPDATED WITH PT AT BEDSIDE.
--- NOTE | 2018-10-28 17:38 | NUR ---
LAB CALLED WITH CRITICAL GLUCOSE OF 531. NOTIFIED.
--- NOTE | 2018-10-28 17:40 | NUR ---
NEW ORDER FOR PT TO INCREASE INSULIN PUMP TO 4 U/HR. ALSO ORDER FOR 25 UNITS AT THIS TIME.
[2018-10-28 18:30] LABS: FERRITIN 23.1 ng/mL (10.0-291.0)
[2018-10-28 20:00] VITALS: BP 104/81; BP 130/80
[2018-10-29] VITALS (11 sets, daily range): BP systolic 118–164; BP diastolic 42–64
--- NOTE | 2018-10-29 00:33 | NUR ---
PT RESTING QUIETLY. NOT AWAKENED PER POLICY
[2018-10-29 06:21] LABS: BASO % 0.2 % (0.0-1.0); EOS # 0.2 10*3/uL (0.0-0.4); EOS % 1.4 % (1.0-4.0); HEMATOCRIT 25.1 % (37.0-47.0); HEMOGLOBIN 7.2 g/dl (12.0-16.0); LYMPH # 2.1 10*3/uL (1.3-4.4); LYMPH % 14.8 % (27.0-41.0); MEAN CELL VOLUME 83.4 fl (81.0-99.0); MEAN CORPUSCULAR HGB 23.9 pg (27.0-31.0); MEAN CORPUSCULAR HGB CONC 28.7 g/dl (33.0-37.0); MEAN PLATELET VOLUME 8.7 fl (9.6-12.3); MONO # 0.8 10*3/uL (0.1-1.0); MONO % 5.9 % (3.0-9.0); NEUT # 10.7 10*3/uL (2.3-7.9); NEUT % 77.1 % (47.0-73.0); PLATELET COUNT AUTOMATED 248 10*3/uL (130-400); RED BLOOD COUNT 3.01 10*6/uL (4.10-5.10); RED CELL DISTRI WIDTH 17.9 % (0-14.5); WHITE BLOOD COUNT 13.9 10*3/uL (4.8-10.8)
[2018-10-29 06:34] LABS: ALBUMIN 2.6 gm/dl (3.1-4.5)
[2018-10-29 06:37] LABS: CREATININE 1.74 mg/dL (0.55-1.02); TOTAL PROTEIN 6.5 gm/dL (6.4-8.2)
[2018-10-29 06:59] LABS: POTASSIUM 4.1 mmol/L (3.5-5.1)
--- NOTE | 2018-10-29 08:17 | NUR ---
IN TO SEE PATIENT.
--- NOTE | 2018-10-29 10:20 | NUR ---
CC Informed consent obtained from patient for Blood transfussion by Dr. GUERRA. Patient identified by arm band. Vital signs recorded. Blood unit number verified by 2 R.N.'s. I.V. site satisfactory. Unit 1 started at a KVO rate with Normal Saline. DERRICK HERNANDEZ
--- NOTE | 2018-10-29 13:34 | NUR ---
UNIT OF BLOOD COMPLETE AT THIS TIME. PT TOLERATED WELL. VSS.
--- NOTE | 2018-10-29 16:00 | NUR ---
PATIENT RESTING QUIETLY IN BED. FAMILY AT BEDSIDE. NO VOICED COMPLAINTS. VSS.
[2018-10-30] VITALS: BP 133/44
[2018-10-30 08:00] VITALS: BP 102/70
--- NOTE | 2018-10-30 08:46 | NUR ---
DR GUERRA IN TO SEE PT. I INQUIRED ABOUT A CBC FOR TODAY. SHE STATED SHE WILL PUT ORDER IN
--- NOTE | 2018-10-30 10:30 | NUR ---
Scutcher Tender in to see patient. Nurse and orientee are administering medications. Will follow up at a later time.
--- NOTE | 2018-10-30 11:25 | NUR ---
ULTRASOUND CALLED REGARDING ORDER FOR TRANSVAGINAL ULTRASOUND. CALLED DR GUERRA FOR PERMISSION TO CHANGE CURRENT ORDER. ORDER RECEIVED
--- NOTE | 2018-10-30 11:30 | NUR ---
Hearing And Speech Assistant in to see patient. She is currently not in her room. Will follow up at a later time.
[2018-10-30 12:00] VITALS: BP 111/55
[2018-10-30 12:59] LABS: BASO % 0.1 % (0.0-1.0); EOS # 0.2 10*3/uL (0.0-0.4); EOS % 1.2 % (1.0-4.0); HEMATOCRIT 26.5 % (37.0-47.0); LYMPH # 1.8 10*3/uL (1.3-4.4); MEAN CELL VOLUME 84.4 fl (81.0-99.0); MEAN CORPUSCULAR HGB 25.5 pg (27.0-31.0); MEAN CORPUSCULAR HGB CONC 30.2 g/dl (33.0-37.0); MEAN PLATELET VOLUME 8.9 fl (9.6-12.3); MONO # 0.6 10*3/uL (0.1-1.0); MONO % 4.2 % (3.0-9.0); NEUT # 10.9 10*3/uL (2.3-7.9); NEUT % 80.9 % (47.0-73.0); PLATELET COUNT AUTOMATED 281 10*3/uL (130-400); RED BLOOD COUNT 3.14 10*6/uL (4.10-5.10); WHITE BLOOD COUNT 13.5 10*3/uL (4.8-10.8)
--- NOTE | 2018-10-30 14:50 | NUR ---
DR GUERRA CALLED REGARDING ULTRASOUND RESULTS. NO FURTHER INTERVENTION NEEDED AT THIS TIME. SHE STATED SHE WILL LIKELY RESUME XARELTO AFTER GYNECOLOGY APPT LATER THIS WEEK. NO NEW ORDERS
--- NOTE | 2018-10-30 15:30 | NUR ---
Late entry: [place] Manager in to talk to patient. Patient states lives at home with her daughter and granddaughter. There are 0 steps in the home. Physician: Dr. Italia Wolf Pharmacy: [facility] Home health services: none Patient's level of ADLs: MINIMAL ASSIST Patient has working utilities: yes DME: cane, c-pap, nebulizer, O2 @ 3L nc, portable O2 tanks, O2 supplier [facility] Follow-up physician's appointment after d/c: she prefers to make her own follow up appt after discharge Does patient want to access PORTAL?: no Discharge plan discussed with patient. She lives at home with her daughter and granddaughter. She is independent with her ADLs and ambulates with a cane. Discussed home health care services and she denies any home needs at this time except she would like non-skilled aides if possible but she states no company will take her and she is not able to private pay due to being on a fixed income. When medically stable she will be discharged to home. OMAR AMARO
[2018-10-30 16:00] VITALS: BP 139/58
--- NOTE | 2018-10-30 19:00 | NUR ---
PT AWAKE IN BED DURING BEDSIDE SHIFT REPORT W/FAMILY IN ROOM VISITING. NO C/O VOICED. CALL LIGHT IN REACH.
[2018-10-30 20:00] VITALS: BP 118/84
[2018-10-31] VITALS: BP 120/70
[2018-10-31 01:05] VITALS: BP 128/70
--- NOTE | 2018-10-31 03:52 | NUR ---
Patient sleeping. Respirations relaxed and easy. Siderails up . Wheeltoms on. ANALI ROBERTS
--- NOTE | 2018-10-31 03:56 | NUR ---
24 HR chart check completed.
[2018-10-31 06:15] LABS: BASO % 0.2 % (0.0-1.0); EOS # 0.2 10*3/uL (0.0-0.4); EOS % 1.5 % (1.0-4.0); HEMATOCRIT 26.6 % (37.0-47.0); HEMOGLOBIN 7.5 g/dl (12.0-16.0); LYMPH # 1.6 10*3/uL (1.3-4.4); LYMPH % 12.5 % (27.0-41.0); MEAN CELL VOLUME 86.1 fl (81.0-99.0); MEAN CORPUSCULAR HGB 24.3 pg (27.0-31.0); MEAN CORPUSCULAR HGB CONC 28.2 g/dl (33.0-37.0); MEAN PLATELET VOLUME 8.7 fl (9.6-12.3); MONO # 0.7 10*3/uL (0.1-1.0); MONO % 5.7 % (3.0-9.0); NEUT # 10.1 10*3/uL (2.3-7.9); NEUT % 79.7 % (47.0-73.0); PLATELET COUNT AUTOMATED 259 10*3/uL (130-400); RED BLOOD COUNT 3.09 10*6/uL (4.10-5.10); WHITE BLOOD COUNT 12.7 10*3/uL (4.8-10.8)
--- NOTE | 2018-10-31 06:40 | NUR ---
PT BSG 79. PT OFFERED SNACK. PT ACCEPTED [facility] W/PEANUT BUTTER AND MILK. PT DENIES ANY S/S OF HYPOGLYCEMIA.
[2018-10-31 06:46] LABS: CREATININE 1.68 mg/dL (0.55-1.02); POTASSIUM 4.2 mmol/L (3.5-5.1)
[2018-10-31 08:04] VITALS: BP 116/62
--- NOTE | 2018-10-31 10:35 | NUR ---
IV IN LEFT AC DISCONTINUED. NEW IV STARTED IN LEFT ARM. 20G, PREPPED WITH CHLORAPREP AND NS LOCKED. IV STARTED BY [facility] STUDENT UNDER DIRECT SUPERVISION OF RNKIM.NM. NO COMPLICATIONS.
[2018-10-31 12:00] VITALS: BP 139/58
[2018-10-31 16:00] VITALS: BP 148/57
--- NOTE | 2018-10-31 16:56 | NUR ---
PER PATIENT, ONLY NOVOLIN R CAN GO INTO HER INSULIN PUMP CARTRIDGE. ONLY HUMULIN AND HUMALOG AVAILABLE. PUMP IS DISCONNECTED FROM THE PATIENT AND SLIDING SCALE ORDERED TO COVER AC/HS BLOOD SUGARS, SEE EMAR FOR DETAILS.
--- NOTE | 2018-10-31 19:00 | NUR ---
PT AWAKE IN BED DURING BEDSIDE SHIFT REPORT. NO C/O VOICED. NO FURTHER VAGINAL BLEEDING NOTED. PT SKIN P/W/D. C/O FEELING COLD. PT TEACHING GIVEN ON LOW H&H. CALL LIGHT IN REACH.
[2018-10-31 20:00] VITALS: BP 132/42
--- NOTE | 2018-10-31 22:15 | NUR ---
DAUGHTER BRINGING IN NEW INSULIN PUMP CARTRIDGE PADMINI PER PT.
[2018-11-01] VITALS: BP 111/44
--- NOTE | 2018-11-01 02:17 | NUR ---
24 HR chart check completed.
--- NOTE | 2018-11-01 03:04 | NUR ---
Patient sleeping. Respirations relaxed and easy. Siderails up . Wheeltoms on. ANALI ROBERTS
[2018-11-01 06:25] LABS: BASO % 0.2 % (0.0-1.0); EOS # 0.1 10*3/uL (0.0-0.4); HEMATOCRIT 24.8 % (37.0-47.0); HEMOGLOBIN 7.2 g/dl (12.0-16.0); LYMPH # 0.8 10*3/uL (1.3-4.4); LYMPH % 7.9 % (27.0-41.0); MEAN CELL VOLUME 86.7 fl (81.0-99.0); MEAN CORPUSCULAR HGB 25.2 pg (27.0-31.0); MEAN PLATELET VOLUME 8.6 fl (9.6-12.3); MONO # 0.6 10*3/uL (0.1-1.0); MONO % 5.5 % (3.0-9.0); NEUT # 8.6 10*3/uL (2.3-7.9); NEUT % 84.6 % (47.0-73.0); PLATELET COUNT AUTOMATED 230 10*3/uL (130-400); RED BLOOD COUNT 2.86 10*6/uL (4.10-5.10); RED CELL DISTRI WIDTH 17.9 % (0-14.5); WHITE BLOOD COUNT 10.1 10*3/uL (4.8-10.8)
[2018-11-01 06:52] LABS: CREATININE 1.64 mg/dL (0.55-1.02); POTASSIUM 4.6 mmol/L (3.5-5.1)
[2018-11-01 07:41] VITALS: BP 174/58
[2018-11-01] MEDS ORDERED: Lovenox40 MG/0.4 SC (08:41)
[2018-11-01] MEDS ORDERED: Coumadin7.5 MG PO (08:41)
[2018-11-01] MEDS ORDERED: FEROSUL325 MG PO (08:56)
--- NOTE | 2018-11-01 09:00 | NUR ---
Contact Lens Flashing Puncher in to see patient. No new needs or request at this at this time. She denies any home needs. When medically stable she will be discharged to home.
--- NOTE | 2018-11-01 10:23 | NUR ---
Discharge instructions reviewed with patient. Patient receptive and verbalizes understanding. Follow-up care arranged. Written instructions given to patient. DAUGHTER WILL DRIVE PATIENT HOME AFTER PATIENT TAKES A SHOWER SHI PEREZ
--- NOTE | 2018-11-01 11:33 | NUR ---
SITES OF INFILTRATED IV X 2 TO LEFT ARM BOTH PAINFUL, SWOLLEN, WARM TO TOUCH AND BRUISED. BOTH INSTANCES OCCURRED WITH INFUSION OF IV FERLICIT, PER PATIENT. PATIENT DENIES NUMBNESS OR TINGLING TO THE ARM/HAND, NO SWELLING NOTED ABOVE OR BELOW THE SITES. PROVIDED ICE PACK TO THE AREAS: FORARM AND ANTECUBITAL.
[2018-11-01 12:00] VITALS: BP 121/59
--- NOTE | 2018-11-01 14:00 | NUR ---
PATIENT DISCHARGED TO FRONT LOBBY BY WHEELCHAIR, ACCOMPANIED BY [facility], FOR TRANSPORT HOME BY PRIVATE VEHICLE.
--- NOTE | 2018-11-01 14:00 | NUR ---
Late entry. Anuradha, liaison, from [facility] stopped by office and questioned [facility] received an order for lab draws every other day and asked if she needed any other services. Informed Anuradha patient was not in need of any other services at this time, besides aides if possible. Anuradha was going to check with Nigel at [facility] to see if they would be able to accept the patient as they do not normally go to the patient's house just to draw labs without other services.
--- NOTE | 2018-11-03 09:23 | NUR ---
Faxed [facility] referral
== END 2018-11-01 14:00 | disposition home health service (06) | DRG 760 ==
LOC: ED 13:06 → 5E 14:43 → EDHOLD 14:43 → 5E 15:12
PROVIDERS: Student in an Organized Health Care Education/Training Program; ADMIT Internal Medicine
PROC: 30233N1 Transfusion of Nonautologous Red Blood Cells into Peripheral Vein, Percutaneous Approach (ICD-10-PCS; principal; 2018-10-29)
DX: N92.0 Excessive and frequent menstruation with regular cycle (principal); J96.10 Chronic respiratory failure, unspecified whether with hypoxia or hypercapnia; D68.51 Activated protein C resistance; I50.32 Chronic diastolic (congestive) heart failure; I13.0 Hypertensive heart and chronic kidney disease with heart failure and stage 1 through stage 4 chronic kidney disease, or unspecified chronic kidney disease; E66.01 Morbid (severe) obesity due to excess calories; G47.33 Obstructive sleep apnea (adult) (pediatric); G89.29 Other chronic pain; M54.5 Low back pain; N18.3 Chronic kidney disease, stage 3 (moderate); D50.9 Iron deficiency anemia, unspecified; J44.9 Chronic obstructive pulmonary disease, unspecified; E11.22 Type 2 diabetes mellitus with diabetic chronic kidney disease; E11.65 Type 2 diabetes mellitus with hyperglycemia; Z79.01 Long term (current) use of anticoagulants; Z88.1 Allergy status to other antibiotic agents; Z88.2 Allergy status to sulfonamides; Z91.048 Other nonmedicinal substance allergy status; Z87.440 Personal history of urinary (tract) infections; Z87.01 Personal history of pneumonia (recurrent); Z90.49 Acquired absence of other specified parts of digestive tract; Z98.891 History of uterine scar from previous surgery; Z98.51 Tubal ligation status; Z98.49 Cataract extraction status, unspecified eye; Z82.49 Family history of ischemic heart disease and other diseases of the circulatory system; Z83.3 Family history of diabetes mellitus; Z85.9 Personal history of malignant neoplasm, unspecified; Z84.1 Family history of disorders of kidney and ureter

== ENCOUNTER 2019-01-12 14:27 | Inpatient (IN) | payer OTHER ==
[~2019-01-12] VITALS: Ht 175.2 cm; Wt 192.9 kg
--- NOTE | ~2019-01-12 | DS ---
[place], [place] DISCHARGE SUMMARY NAME: RIRI PETERSON UNIT #: [id number] ROOM: 402 DOCTOR: GILBERTO GUERRA MD BIRTHDATE: [birth year] DOS: 01/14/2019 DIAGNOSES: 1. Acute viral gastroenteritis. 2. Acute kidney injury. 3. Chronic kidney disease. 4. Morbid obesity with obesity hypoventilation. 5. Type 2 diabetes mellitus. 6. Chronic obstructive pulmonary disease with chronic respiratory failure. 7. Factor V Leiden mutation. 8. Benign hypertension. 9. Chronic low back pain. DISCHARGE MEDICATIONS: Cipro 500 mg daily for 5 days. The rest of the meds are Xanax 0.25 twice a day p.r.n., insulin in the pump, oxygen 3 liters, Coreg 12.5 b.i.d., Advair 500 twice a day, oxycodone 10 q. 6 hours, Protonix 40 daily, glimepiride 2 mg daily, Bumex 2 mg b.i.d., iron 325 daily, warfarin 3 mg Tuesday, Tuesday and Tuesday, 6 mg rest of the days. HOSPITAL COURSE: The patient is 53-year-old, comes in with severe nausea and multiple episodes of emesis. The patient after admission was treated with IV fluids, Zofran IV and Flagyl. Stool for ova and parasites and C. diff was ordered, but because of the continued watery diarrhea the C. diff was unfortunately not sent. The patient's diarrhea, nausea, vomiting have resolved and she is feeling better. She had acute kidney injury. With IV fluids, the kidney functions have improved and is back to her baseline. The patient is relatively stable and is not having any new problems. She did have a urine culture, which was positive for E. coli 50,000 colonies, for which she will be placed on Cipro 500 mg daily for 5 days. Her protime is therapeutic here now that she is on Cipro, we will make sure that the protimes do not go up. She was advised to have it repeated in about 5 days. The patient is stable, plan to discharge to home today. Follow up as an outpatient. [place], [place] DISCHARGE SUMMARY NAME: RIRI PETERSON UNIT #: [id number] ROOM: 402 DOCTOR: GILBERTO GUERRA MD BIRTHDATE: [birth year] GILBERTO GUERRA MD CM:BERTRAM 2 [id number] GILBERTO GUERRA MD 01/14/19 1420 interface
--- NOTE | ~2019-01-12 | PR ---
[place], [place] PROGRESS NOTE NAME: RIRI PETERSON UNIT #: [id number] ROOM: 402 DOCTOR: GILBERTO GUERRA MD BIRTHDATE: [birth year] DOS: 01/15/2019 SUBJECTIVE: The patient is doing better this morning. She was supposed to go home yesterday, but did not go because of continued tiredness and weakness. OBJECTIVE: VITAL SIGNS: Graphic trend shows a pressure of 133/43, pulse of 72, respirations 18, temperature 97.5. LUNGS: Diminished breath sounds. Clear. HEART: Regular. ABDOMEN: Obese. EXTREMITIES: Trace edema with chronic lymphedema noted. ASSESSMENT AND PLAN: 1. Viral gastroenteritis, which is resolved. 2. Urinary tract infection with 50,000 colonies of Escherichia coli, on antibiotics. 3. Lymphedema with chronic diastolic congestive heart failure history. The patient is not in CHF right now, but one dose of Bumex IV will be given before discharge. GILBERTO GUERRA MD CM:PNTRANS [id number] GILBERTO GUERRA MD 01/16/19 0225 interface
--- NOTE | ~2019-01-12 | WRIGHTHP ---
[place], [place] PATIENT HISTORY AND PHYSICAL EXAM [id number] UNIT #: [id number] ROOM: 402 DOCTOR: GILBERTO GUERRA MD BIRTHDATE: [birth year] DOS: 01/12/2019 HISTORY OF PRESENT ILLNESS: The patient is 53 years old. The patient comes in with complaints of diarrhea, nausea and emesis about 3 days' duration. She has had multiple diarrheal bowel movements about 10 a day and continues to have diarrheal bowel movements since admitted to the hospital. She also has had multiple emesis since admitted in the hospital. This morning, feels a little bit better. She does complain of some pain in her upper abdomen. She denies having any chest pains, palpitations, does not have any fever or chills, does not have any leg edema, has not been eating very much and her sugars have been running low. PAST MEDICAL HISTORY: Significant for: 1. Morbid obesity, hypoventilation and using a BiPAP. 2. Type 2 diabetes mellitus. 3. COPD with chronic respiratory failure. 4. Chronic kidney disease. 5. Factor V Leiden mutation. 6. Benign hypertension. 7. Chronic low back pain. MEDICATIONS: She is currently on are insulin pump, oxygen, Xanax, Bumex, carvedilol, iron, glimepiride, oxycodone, Protonix and warfarin. SOCIAL HISTORY: Nonsmoker. Does not use any alcohol. PHYSICAL EXAMINATION: VITAL SIGNS: Graphic trend shows a pressure 112/56, pulse of 68, respirations 16, temperature 98.9. LUNGS: Diminished breath sounds. No wheezes, rales, rhonchi heard today. HEART: Regular. ABDOMEN: Obese, soft. EXTREMITIES: Chronic lymphedema. LABORATORY DATA: Lactic acid is normal. Comprehensive glucose 166, BUN 56, creatinine 1.84 Electrolytes within normal limits except for a chloride of 97. WBC count is 14.1, hemoglobin 11.1, hematocrit 37.5. Urinalysis reflux. ASSESSMENT AND PLAN: 1. The patient who presents with severe nausea, vomiting and diarrhea, has had multiple episodes, rule out Clostridium difficile. Ova and parasite and Clostridium difficile titer has been sent. The patient is placed on intravenous Flagyl and intravenous fluids. 2. Upper abdominal pain from acute gastritis. Protonix intravenous has been ordered. 3. Type 2 diabetes mellitus, insulin dependent. Hold off on medications right now since she is n.p.o. 4. Factor V Leiden mutation. Restart Coumadin. 5. Chronic obstructive pulmonary disease with chronic respiratory failure, stable without any exacerbation. [place], [place] PATIENT HISTORY AND PHYSICAL EXAM NAME: RIRI PETERSON UNIT #: [id number] ROOM: [facility] DOCTOR: GILBERTO GUERRA MD BIRTHDATE: [birth year] GILBERTO GUERRA MD CM:HISPHYS:PATIENT HISTORY AND PHYSICAL EXAMINATION 5 GILBERTO GUERRA MD 01/13/1925 interface
--- NOTE | ~2019-01-12 | PR ---
[place], [place] PROGRESS NOTE NAME: RIRI PETERSON UNIT #: [id number] ROOM: 402 DOCTOR: GILBERTO GUERRA MD BIRTHDATE: [birth year] DOS: 01/14/2019 SUBJECTIVE: The patient is doing better. She is in bed, has not had any diarrhea since yesterday afternoon. She was unable to give a specimen for the C. diff. OBJECTIVE: VITAL SIGNS: Blood pressure is 140/40, pulse of 97, respirations 18, temperature 97.6. LUNGS: Clear. HEART: Regular. ABDOMEN: Obese. EXTREMITIES: Chronic lymphedema. No new changes were noted. LABORATORY DATA: White cell count is 8.6, hemoglobin 9.2, hematocrit 33.5, platelets were 228. BMP: Glucose 97, BUN 47, creatinine 1.68, sodium 143, potassium 3.9, chloride 105, bicarbonate 34, calcium is 8.1. Protime is 24.2 with an INR of 2.2. ASSESSMENT AND PLAN: 1. Nausea, vomiting, diarrhea, most likely acute gastroenteritis, which could have been viral and Clostridium difficile titers ova and parasites were ordered, but unfortunately no specimen was obtained. 2. Gastritis, acute, which seems to be better. 3. A 50,000 colonies of Escherichia coli in the urine. We will place the patient on Cipro. 4. Chronic kidney disease with acute kidney injury, possibly from prerenal azotemia, which is back to her baseline. We will discontinue with IV fluids and plan to discharge the patient to home. GILBERTO GUERRA MD CM:PNTRANS 0756 GILBERTO GUERRA MD 01/14/19 2226 interface
[~2019-01-12 14:27] MED LIST changes: +Coumadin7.5 MG PO; +FEROSUL325 MG PO; +Lovenox40 MG/0.4 SC
[2019-01-12 14:29] VITALS: BP 152/61
[2019-01-12 15:22] LABS: HEMATOCRIT 37.5 % (37.0-47.0); HEMOGLOBIN 11.1 g/dl (12.0-16.0); MEAN CELL VOLUME 86.8 fl (81.0-99.0); MEAN CORPUSCULAR HGB 25.7 pg (27.0-31.0); MEAN CORPUSCULAR HGB CONC 29.6 g/dl (33.0-37.0); MEAN PLATELET VOLUME 8.4 fl (9.6-12.3); PLATELET COUNT AUTOMATED 274 10*3/uL (130-400); RED BLOOD COUNT 4.32 10*6/uL (4.10-5.10); RED CELL DISTRI WIDTH 15.8 % (0-14.5); WHITE BLOOD COUNT 14.1 10*3/uL (4.8-10.8)
[2019-01-12 15:38] LABS: POTASSIUM 4.5 mmol/L (3.5-5.1)
[2019-01-12 15:45] LABS: ALBUMIN 3.2 gm/dl (3.1-4.5); CREATININE 1.84 mg/dL (0.55-1.02); TOTAL PROTEIN 8.2 gm/dL (6.4-8.2)
[2019-01-12 15:45] LABS: TOTAL CELLS COUNTED 100 #CELLS
[2019-01-12 15:46] LABS: OVALOCYTES FEW
[2019-01-12 15:47] LABS: PLATELET SUFFICIENCY NORMAL (NORMAL)
[2019-01-12 16:47] LABS: BILIRUBIN NEGATIVE (NEGATIVE); BLOOD 2+ (NEGATIVE); CLARITY SL CLOUDY (CLEAR); COLOR YELLOW (YELLOW); GLUCOSE TRACE (NEGATIVE); KETONE NEGATIVE (NEGATIVE); LEUKO ESTERASE 1+ (NEGATIVE); NITRITE NEGATIVE (NEGATIVE); UROBILINOGEN 0.2 E.U./dl (0.2-1.0)
[2019-01-12 16:55] LABS: BACTERIA 2+
[2019-01-12 17:33] VITALS: BP 144/62
--- NOTE | 2019-01-12 17:50 | NUR ---
A 53, admitted to , under the services of GILBERTO Lenz MD with a diagnosis of UTI DIARRHEA . Chief complaint is NAUSEA, VOMITING, DIARRHEA, UTI SYMPTOMS. Patient arrived via wheel chair from ER. Monitor applied. Initial assessment completed. Vital signs taken and recorded. GILBERTO LENZ MD notified of admission to the unit. Orders received. See assessment for past medical history, medications and allergies. Patient and/or family oriented to unit. [facility] visitation policy reviewed. Clothing/patient valuable form completed. RODOLFO CHAMBERS
[2019-01-12] MEDS ORDERED: COUMADIN3 M1 PO (18:08)
[2019-01-12] MEDS ORDERED: COUMADIN6 M2 PO (18:10)
--- NOTE | 2019-01-12 18:15 | NUR ---
MED REC UPDATED AT BEDSIDE VIA PATIENT.
--- NOTE | 2019-01-12 18:53 | NUR ---
ATTEMPTED TO CALL FOR ADMISSION ORDERS. NO ANSWER. LEFT MESSAGE. AWAITING CALL BACK.
--- NOTE | 2019-01-12 18:59 | NUR ---
CALLED BACK TO PTs ROOM, VOMITING AND INCONTINENT FOR DIARRHEA. CALLED AGAIN. NEW ORDERS GIVEN. SEE NOV.
[2019-01-12 20:00] VITALS: BP 155/67
[2019-01-13] VITALS: BP 112/56
--- NOTE | 2019-01-13 04:39 | NUR ---
24 HR chart check completed.
--- NOTE | 2019-01-13 05:40 | NUR ---
PATIENT'S BLOOD SUGAR IS 71 - EATING CRACKERS WITH PEANUT BUTTER AND A POPSCILE. USED BEDSIDE COMMODE TO VOID INDEPENDENTLY HOWEVER ASSIST X1 TO CLEAN POST VOID AND TRANSFER BACK TO THE BED - GOWN AND BED CHANGED R/T LEAKAGE OF URINE
[2019-01-13 07:53] LABS: INTERNATIONAL NORM RATIO 2.3 (2.0-3.5)
[2019-01-13 08:00] VITALS: BP 138/63
--- NOTE | 2019-01-13 08:07 | NUR ---
Awake and alert. No c/o this AM. Dr. Wolf in and orders were recieved. sitting at bedside taking breakfast well. Aware of need for stool specimen.
--- NOTE | 2019-01-13 12:42 | NUR ---
Declined 1200 oxy IR . states will request when needed. placed to wall unit.
--- NOTE | 2019-01-13 14:02 | NUR ---
Family i to visit. continues to decline oxy IR . states takes as needed at home. also states it makes her to tired during the day.
[2019-01-13 16:00] VITALS: BP 136/62
--- NOTE | 2019-01-13 16:30 | NUR ---
SITTING AT BEDSIDE. VISITING WITH DAUGHTER
--- NOTE | 2019-01-13 16:41 | NUR ---
24 HR chart check completed.
--- NOTE | 2019-01-13 17:30 | NUR ---
SITTING AT BEDSIDE WITH NO ACUTE DISTRESS NOTED. RESPIRATIONS EASY. LUNGS DIMINISHED. PULSE OX 99% 3L. DENIES N/V/D - AWARE OF NEED FOR STOOL SAMPLE. CALL LIGHT WITHIN REACH. NO VOICED COMPLAINTS
[2019-01-13 20:00] VITALS: BP 137/60
--- NOTE | 2019-01-13 22:00 | NUR ---
PATIENT USES HER PERSONAL GLUCOMETER TO CHECK HER BLOOD SUGAR - READING IS 245- VERIFIED BY THIS RN - INSULIN PUMP IN PLACE
[2019-01-14] VITALS: BP 140/40
--- NOTE | 2019-01-14 01:00 | NUR ---
PATIENT IS SLEEPING WITH NO SIGNS OF PAIN / DISCOMFORT - SCHEDULED OXYCODONE NOT GIVEN
--- NOTE | 2019-01-14 02:10 | NUR ---
24 HR chart check completed.
--- NOTE | 2019-01-14 04:58 | NUR ---
PATIENT IS AWAKE SITTING ON THE SIDE OF THE BED REQUESTING WATER TO DRINK. NO C/O PAIN AT THIS TIME. NO OTHER NEEDS AT THIS TIME
--- NOTE | 2019-01-14 05:38 | NUR ---
PATIENT VERBALIZES THAT SHE HAS NO PAIN AND WOULD NOT LIKE TO TAKE HER SCHEDULED PAIN MEDICATION IF SHE DOESN'T FEEL LIKE SHE NEEDS IT - SCHEDULED OXYCODONE NOT ADMINISTERED
--- NOTE | 2019-01-14 06:06 | NUR ---
PATIENT REQUESTING A RX FOR THE NEEDLES FOR THE HOME LANCET
[2019-01-14 06:23] LABS: BASO % 0.2 % (0.0-1.0); EOS # 0.2 10*3/uL (0.0-0.4); EOS % 2.1 % (1.0-4.0); HEMATOCRIT 33.5 % (37.0-47.0); HEMOGLOBIN 9.2 g/dl (12.0-16.0); LYMPH # 0.8 10*3/uL (1.3-4.4); LYMPH % 9.8 % (27.0-41.0); MEAN CORPUSCULAR HGB 25.3 pg (27.0-31.0); MEAN CORPUSCULAR HGB CONC 27.5 g/dl (33.0-37.0); MEAN PLATELET VOLUME 8.9 fl (9.6-12.3); MONO # 0.7 10*3/uL (0.1-1.0); MONO % 7.6 % (3.0-9.0); NEUT # 6.8 10*3/uL (2.3-7.9); NEUT % 79.1 % (47.0-73.0); PLATELET COUNT AUTOMATED 228 10*3/uL (130-400); RED BLOOD COUNT 3.64 10*6/uL (4.10-5.10); RED CELL DISTRI WIDTH 16.1 % (0-14.5); WHITE BLOOD COUNT 8.6 10*3/uL (4.8-10.8)
[2019-01-14 06:42] LABS: CREATININE 1.68 mg/dL (0.55-1.02); INTERNATIONAL NORM RATIO 2.2 (2.0-3.5); POTASSIUM 3.9 mmol/L (3.5-5.1)
[2019-01-14] MEDS ORDERED: CIPRO500 MG PO (07:58)
[2019-01-14 08:00] VITALS: BP 142/56
[2019-01-14 16:00] VITALS: BP 151/52
--- NOTE | 2019-01-14 19:00 | NUR ---
PT AWAKE IN BED DURING BEDSIDE SHIFT REPORT. PT C/O FEELING IF SHE IS FULL OF FLUID. PT TEACHING GIVEN ON LASIX ON HOLD AT THIS TIME D/T ELEVATED BUN/CREATININE AND LCTA. WILL MONITOR. CALL LIGHT IN REACH.
[2019-01-14 20:00] VITALS: BP 157/63
--- NOTE | 2019-01-14 23:59 | NUR ---
Hep Lock discontinued per pt request d/t leaking at site. Site asymptomatic. Pressure applied. Sterile dressing applied. ANALI ROBERTS
[2019-01-15] VITALS: BP 133/43
--- NOTE | 2019-01-15 | NUR ---
PT REFUSING OXYCODONE AT THIS TIME. PT DENIES PAIN.
--- NOTE | 2019-01-15 03:56 | NUR ---
24 HR chart check completed.
--- NOTE | 2019-01-15 05:16 | NUR ---
PT REFUSING NEW IV SITE AND AM MEDS. PT STATES SHE WILL TAKE THEM WHEN SHE GOES HOME. NOTE SENT TO DR. GUERRA
--- NOTE | 2019-01-15 05:17 | NUR ---
PT REFUSING NEW IV SITE HER IV WAS LEAKING LAST NIGHT AND D/C'D. PT REFUSED AM DOSE OF FLAGYL AND IV PROTONIX.
[2019-01-15 08:00] VITALS: BP 167/59
--- NOTE | 2019-01-15 09:00 | NUR ---
Insurance Follow Up Representative in to talk to patient. Patient states lives at home with daughter and granddaughter. There are few steps in the home. Physician: mak marquez [facility]acy[facility] Home health services: none Patient's level of ADLs: MINIMAL ASSIST Patient has working utilities: all working DME: cane, cpap, nebulizer, home oxygen and portable tanks from [facility] Follow-up physician's appointment after d/c: patient states she will make her own follow up doctor's appointment Does patient want to access PORTAL?: no Discharge plan discussed with patient, patient states she lives at home with daughter and granddaughter, she uses a cane for ambulation, she is independent in adls, patient states she has all of the equipment she needs when going home, discussed with her VNA and she declines any services at this time. BON TORRES
--- NOTE | 2019-01-15 09:50 | NUR ---
PER DR. GUERRA, PATIENT TO BE DISCHARGED TODAY AFTER ADMINISTRATION OF IV BUMEX AND PATIENT IS DIURESED. STARTED IV TO RIGHT ARM, BUMEX ADMINISTERED, IV THEN DISCONTINUED.
--- NOTE | 2019-01-15 13:17 | NUR ---
PATIENT DISCHARGED TO FRONT LOBBY BY WHEELCHAIR, ACCOMPANIED BY [facility], FOR TRANSPORT HOME BY PRIVATE VEHICLE.
== END 2019-01-15 13:17 | disposition home or self-care (01) | DRG 683 ==
LOC: ED 14:27 → EDHOLD 17:12 → 4E 17:12
PROVIDERS: Nurse Practitioner Family; ADMIT Internal Medicine
DX: N17.9 Acute kidney failure, unspecified (principal); N39.0 Urinary tract infection, site not specified; J96.11 Chronic respiratory failure with hypoxia; D68.51 Activated protein C resistance; I50.32 Chronic diastolic (congestive) heart failure; I13.0 Hypertensive heart and chronic kidney disease with heart failure and stage 1 through stage 4 chronic kidney disease, or unspecified chronic kidney disease; Z68.43 Body mass index [BMI] 50.0-59.9, adult; A08.4 Viral intestinal infection, unspecified; J44.9 Chronic obstructive pulmonary disease, unspecified; K29.70 Gastritis, unspecified, without bleeding; R31.9 Hematuria, unspecified; E66.01 Morbid (severe) obesity due to excess calories; N18.9 Chronic kidney disease, unspecified; G89.29 Other chronic pain; M54.5 Low back pain; E11.36 Type 2 diabetes mellitus with diabetic cataract; E11.22 Type 2 diabetes mellitus with diabetic chronic kidney disease; B96.20 Unspecified Escherichia coli [E. coli] as the cause of diseases classified elsewhere; I89.0 Lymphedema, not elsewhere classified; Z88.2 Allergy status to sulfonamides; Z88.1 Allergy status to other antibiotic agents; Z90.49 Acquired absence of other specified parts of digestive tract; Z79.4 Long term (current) use of insulin; Z98.891 History of uterine scar from previous surgery; Z98.49 Cataract extraction status, unspecified eye; Z84.1 Family history of disorders of kidney and ureter; Z83.3 Family history of diabetes mellitus; Z82.49 Family history of ischemic heart disease and other diseases of the circulatory system; Z80.8 Family history of malignant neoplasm of other organs or systems

== ENCOUNTER 2019-06-27 14:58 | Inpatient (IN) | payer OTHER ==
[~2019-06-27] VITALS: Ht 175.2 cm; Wt 186.0 kg
[~2019-06-27 14:58] MED LIST changes: +CIPRO500 MG PO; +COUMADIN6 M2 PO
[2019-06-27] MEDS ORDERED: FLUTICASONE-SA1 EAC5 INH (15:30)
[2019-06-27] MEDS ORDERED: GLUCOTROL10 MG PO (15:32)
[2019-06-27] MEDS ORDERED: NEURONTIN300 MG PO (15:34)
[2019-06-27] MEDS ORDERED: REGLAN5 MG PO (15:34)
[2019-06-27] MEDS ORDERED: COUMADIN6 M2 PO (15:36)
[2019-06-27 16:00] VITALS: BP 178/74
--- NOTE | 2019-06-27 16:15 | NUR ---
A 54, admitted to , under the services of GILBERTO Lenz MD with a diagnosis of HYPOXIA/RESPIRATORY FAILURE. Chief complaint is SHORTNESS OF BREATH INCREASING WITH ANY ACTIVITY, LOW O2 SATS WITH ACTIVITY. Patient arrived via wheel chair from [place]. Monitor applied. Initial assessment completed. Vital signs taken and recorded. GILBERTO LENZ MD notified of admission to the unit. Orders received. See assessment for past medical history, medications and allergies. Patient and/or family oriented to unit. [facility] Clothing/patient valuable form completed. SHI PEREZ
[2019-06-27] MEDS ORDERED: COUMADIN3 M1 PO (16:33)
[2019-06-27] MEDS ORDERED: Amaryl2 MG PO (16:34)
[2019-06-27] MEDS ORDERED: PROTONIX TR40 M1 PO (16:37)
[2019-06-27 20:00] VITALS: BP 122/60
--- NOTE | 2019-06-27 22:49 | NUR ---
24 HR chart check completed.
--- NOTE | 2019-06-27 23:44 | NUR ---
Patient resting quietly with no c/o discomfort. Respirations easy and regular. Vital signs stable. No overt distress. CALL LIGHT WITHIN REACH HISSOM,CIRA
[2019-06-28] VITALS: BP 139/54
--- NOTE | 2019-06-28 04:15 | NUR ---
Patient sleeping. Respirations relaxed and easy. [place] up . [place] on. CALL LIGHT WITHIN REACH HISSOM,CIRA
[2019-06-28 06:08] LABS: CREATININE 2.05 mg/dL (0.55-1.02)
[2019-06-28 06:16] LABS: HEMATOCRIT 38.6 % (37.0-47.0); HEMOGLOBIN 11.3 g/dl (12.0-16.0); MEAN CELL VOLUME 91.9 fl (81.0-99.0); MEAN CORPUSCULAR HGB 26.9 pg (27.0-31.0); MEAN CORPUSCULAR HGB CONC 29.3 g/dl (33.0-37.0); MEAN PLATELET VOLUME 9.4 fl (9.6-12.3); PLATELET COUNT AUTOMATED 247 10*3/uL (130-400); RED CELL DISTRI WIDTH 14.9 % (0-14.5); WHITE BLOOD COUNT 11.3 10*3/uL (4.8-10.8)
[2019-06-28 07:29] LABS: PLATELET SUFFICIENCY NORMAL (NORMAL); TOTAL CELLS COUNTED 100 #CELLS
[2019-06-28 08:00] VITALS: BP 122/60
[2019-06-28 09:17] LABS: INTERNATIONAL NORM RATIO 1.9 (2.0-3.5)
--- NOTE | 2019-06-28 10:00 | NUR ---
[employer] in to talk to patient. Patient states lives at home with her daughter and granddaughter. There are 0 steps in the home. Physician: Dr. Italia Wolf [facility]: [facility] Home health services: none Patient's level of ADLs: MINIMAL ASSIST Patient has working utilities: yes DME: cane, c-pap, nebulizer, O2 @ 3L nc, portable O2 tanks, O2 supplier [facility] Follow-up physician's appointment after d/c: she prefers to make her own follow up appt after discharge Does patient want to access PORTAL?: no Discharge plan discussed with patient. She lives at home with her daughter and granddaughter. She is independent with her ADLs and ambulates with a cane. Discussed home health care services and she is agreeable. When provided with a list of agencies she chose [facility]. When medically stable she will be discharged to home with home health care services. Her family will transport on discharge. OMAR AMARO
[2019-06-28 12:00] VITALS: BP 154/54
[2019-06-28 16:00] VITALS: BP 158/90
[2019-06-28 20:00] VITALS: BP 152/53
--- NOTE | 2019-06-28 20:52 | NUR ---
SPOKE WITH DR GUERRA REGARDING PATIENTS XRAY RESULTS AND PATIENT REQUESTING AQUAFOR. DR GUERRA SAID TO CONTINUE TO BUMEX AND ORDER THE AQUAFOR.
--- NOTE | 2019-06-28 21:23 | NUR ---
NOTIFIED DR GUERRA OF PATIENTS BLOOD SUGAR OF 519. SAID TO D/C SEROIDS AND GIVE 20 UNITS OF REGULAR INSULIN SQ NOW.
--- NOTE | 2019-06-28 23:39 | NUR ---
Patient resting quietly with no c/o discomfort. Respirations easy and regular. Vital signs stable. No overt distress. call light within reach HISSOM,CIRA
[2019-06-29] VITALS: BP 146/50
--- NOTE | 2019-06-29 00:45 | NUR ---
PATIENT RECHECKED BLOOD SUGAR USING PERSONAL GLUCOMETER. BLOOD SUGAR WAS 451.
--- NOTE | 2019-06-29 02:21 | NUR ---
24 HR chart check completed.
--- NOTE | 2019-06-29 04:30 | NUR ---
Patient sleeping. Respirations relaxed and easy. [place] on. CALL LIGHT WITHIN REACH HISSOM,CIRA
[2019-06-29 06:12] LABS: BASO % 0.1 % (0.0-1.0); HEMATOCRIT 35.2 % (37.0-47.0); HEMOGLOBIN 10.7 g/dl (12.0-16.0); LYMPH # 0.7 10*3/uL (1.3-4.4); LYMPH % 6.4 % (27.0-41.0); MEAN CELL VOLUME 91.9 fl (81.0-99.0); MEAN CORPUSCULAR HGB 27.9 pg (27.0-31.0); MEAN CORPUSCULAR HGB CONC 30.4 g/dl (33.0-37.0); MEAN PLATELET VOLUME 9.6 fl (9.6-12.3); MONO # 0.9 10*3/uL (0.1-1.0); MONO % 7.6 % (3.0-9.0); NEUT # 9.7 10*3/uL (2.3-7.9); NEUT % 85.2 % (47.0-73.0); PLATELET COUNT AUTOMATED 245 10*3/uL (130-400); RED BLOOD COUNT 3.83 10*6/uL (4.10-5.10); RED CELL DISTRI WIDTH 15.1 % (0-14.5); WHITE BLOOD COUNT 11.4 10*3/uL (4.8-10.8)
[2019-06-29 06:22] LABS: CREATININE 1.87 mg/dL (0.55-1.02); POTASSIUM 4.7 mmol/L (3.5-5.1)
[2019-06-29 07:36] LABS: INTERNATIONAL NORM RATIO 2.2 (2.0-3.5)
--- NOTE | 2019-06-29 07:40 | NUR ---
PT AWAKE. SITTING AT BEDSIDE. REPORT RECEIVED FROM CIRA HENDRICKS.
[2019-06-29 08:00] VITALS: BP 136/70
--- NOTE | 2019-06-29 08:30 | NUR ---
Towel Sewer in to see patient. No new needs or request at this time. Patient diuresis with Bumex. When medically stable she will be discharged to home with [facility].
--- NOTE | 2019-06-29 09:00 | NUR ---
REAL FROM RADIOLOGY CALLED REGARDING ORDER FOR R KNEE XRAY. PER PT IT IS HER LEFT KNEE. ORDER CHANGED NURSING MEASURE
--- NOTE | 2019-06-29 09:35 | NUR ---
PT AWAKE. ASSESSMENT COMPLETE. ROUTINE MEDICATIONS WELL TOLERATED. NO PT COMPLAINTS/CONCERNS AT THIS TIME. CALL FLORES IN REACH
--- NOTE | 2019-06-29 10:53 | NUR ---
Nutritional Support Services Note: Discussing with pt 1800cal diabetic diet. Diet copy given for 1600cal to help with weight loss at home. Ht.5'9 Wt.409#. Weight has been stable since 12/22/17 admission. States she doesn't eat a lot. Stressed importance of healthy regular meal times. Encouraged increased fruit and vegetable intake. Discussed movement/exercise. Encouraged better compliance to diet. Pt states she doesn't eat a lot. Will follow as needed. Riri Medina Rdn Ld
[2019-06-29 12:00] VITALS: BP 147/52
[2019-06-29 16:00] VITALS: BP 158/66
--- NOTE | 2019-06-29 17:30 | NUR ---
PT REPORTS BLOOD GLUCOSE READING OF 392. 17 UNITS OF INSULIN DELIVERED VIA PTS PUMP.
[2019-06-29 20:00] VITALS: BP 133/51
--- NOTE | 2019-06-29 23:39 | NUR ---
PLACED PATIENT ON HOME BIPAP UNIT WITH 3L BLEED IN. PATIENT IS RESTING COMFORTABLY
[2019-06-30] VITALS: BP 137/55
[2019-06-30 00:15] VITALS: BP 147/76
--- NOTE | 2019-06-30 04:59 | NUR ---
24 HR chart check completed.
[2019-06-30 07:12] LABS: BASO % 0.1 % (0.0-1.0); EOS # 0.1 10*3/uL (0.0-0.4); EOS % 0.7 % (1.0-4.0); HEMOGLOBIN 11.1 g/dl (12.0-16.0); LYMPH # 2.9 10*3/uL (1.3-4.4); LYMPH % 25.7 % (27.0-41.0); MEAN CELL VOLUME 93.1 fl (81.0-99.0); MEAN CORPUSCULAR HGB 27.2 pg (27.0-31.0); MEAN CORPUSCULAR HGB CONC 29.2 g/dl (33.0-37.0); MEAN PLATELET VOLUME 8.7 fl (9.6-12.3); MONO # 0.9 10*3/uL (0.1-1.0); NEUT # 7.2 10*3/uL (2.3-7.9); NEUT % 65.1 % (47.0-73.0); PLATELET COUNT AUTOMATED 244 10*3/uL (130-400); RED BLOOD COUNT 4.08 10*6/uL (4.10-5.10); RED CELL DISTRI WIDTH 15.2 % (0-14.5); WHITE BLOOD COUNT 11.1 10*3/uL (4.8-10.8)
[2019-06-30 07:35] LABS: CREATININE 1.98 mg/dL (0.55-1.02); POTASSIUM 4.4 mmol/L (3.5-5.1)
[2019-06-30] MEDS ORDERED: Ipratropium Brom3 ML NEB (07:58)
[2019-06-30] MEDS ORDERED: ZOCOR10 MG PO (07:58)
[2019-06-30 08:00] VITALS: BP 120/42
[2019-06-30 12:00] VITALS: BP 135/62
--- NOTE | 2019-06-30 12:35 | NUR ---
Discharge instructions reviewed with patient/family. Patient receptive and verbalizes understanding. Follow-up care arranged. Written instructions given to patient/family. CONG BOURGEOIS
--- NOTE | 2019-06-30 12:36 | NUR ---
Discharge instructions reviewed with patient/family. Patient receptive and verbalizes understanding. Follow-up care arranged. Written instructions given to patient/family. ANALI ROBERTS
--- NOTE | 2019-07-02 08:08 | NUR ---
Faxed home health order to [facility]
--- NOTE | 2019-07-02 09:45 | NUR ---
Per Rosette Biswas at [facility] they are not in network with patient's insurance. Faxed referral to [facility]. Awaiting response.
== END 2019-06-30 12:36 | disposition home or self-care (01) | DRG 133 ==
LOC: 4E 14:58
PROVIDERS: ADMIT Internal Medicine
PROC: 5A09357 Assistance with Respiratory Ventilation, Less than 24 Consecutive Hours, Continuous Positive Airway Pressure (ICD-10-PCS; principal; 2019-06-27)
PROC: 5A09357 Assistance with Respiratory Ventilation, Less than 24 Consecutive Hours, Continuous Positive Airway Pressure (ICD-10-PCS; 2019-06-28)
PROC: 5A09357 Assistance with Respiratory Ventilation, Less than 24 Consecutive Hours, Continuous Positive Airway Pressure (ICD-10-PCS; 2019-06-30)
DX: J96.01 Acute respiratory failure with hypoxia (principal); I13.0 Hypertensive heart and chronic kidney disease with heart failure and stage 1 through stage 4 chronic kidney disease, or unspecified chronic kidney disease; I50.31 Acute diastolic (congestive) heart failure; E66.2 Morbid (severe) obesity with alveolar hypoventilation; E11.22 Type 2 diabetes mellitus with diabetic chronic kidney disease; M54.5 Low back pain; G89.29 Other chronic pain; F41.1 Generalized anxiety disorder; E87.3 Alkalosis; M17.0 Bilateral primary osteoarthritis of knee; N18.9 Chronic kidney disease, unspecified; T38.0X5A Adverse effect of glucocorticoids and synthetic analogues, initial encounter; D68.51 Activated protein C resistance; Y92.89 Other specified places as the place of occurrence of the external cause; Z79.4 Long term (current) use of insulin; Z79.899 Other long term (current) drug therapy; Z79.01 Long term (current) use of anticoagulants; Z68.44 Body mass index [BMI] 60.0-69.9, adult

== ENCOUNTER 2020-02-07 13:35 | Inpatient (IN) | payer OTHER ==
[~2020-02-07] VITALS: Ht 175.2 cm; Wt 189.7 kg
[~2020-02-07 13:35] MED LIST changes: +Amaryl2 MG PO; +FLUTICASONE-SA1 EAC5 INH; +Ipratropium Brom3 ML NEB; +PROTONIX TR40 M1 PO; +REGLAN5 MG PO; +ZOCOR10 MG PO
[2020-02-07 13:43] VITALS: BP 150/49
[2020-02-07 14:04] LABS: BASO % 0.3 % (0.0-1.0); EOS # 0.4 10*3/uL (0.0-0.4); EOS % 3.4 % (1.0-4.0); HEMATOCRIT 37.2 % (37.0-47.0); LYMPH # 1.6 10*3/uL (1.3-4.4); LYMPH % 12.8 % (27.0-41.0); MEAN CELL VOLUME 95.9 fl (81.0-99.0); MEAN CORPUSCULAR HGB 28.6 pg (27.0-31.0); MEAN CORPUSCULAR HGB CONC 29.8 g/dl (33.0-37.0); MEAN PLATELET VOLUME 8.8 fl (9.6-12.3); MONO # 0.7 10*3/uL (0.1-1.0); MONO % 5.9 % (3.0-9.0); NEUT # 9.4 10*3/uL (2.3-7.9); NEUT % 77.1 % (47.0-73.0); PLATELET COUNT AUTOMATED 223 10*3/uL (130-400); RED BLOOD COUNT 3.88 10*6/uL (4.10-5.10); RED CELL DISTRI WIDTH 14.7 % (0-14.5); WHITE BLOOD COUNT 12.1 10*3/uL (4.8-10.8)
[2020-02-07 14:22] LABS: ALBUMIN 2.9 gm/dl (3.1-4.5); ALKALINE PHOSPHATASE 110 U/L (45-117); BUN 52 mg/dl (7-24); CHLORIDE 102 mmol/L (98-107); CREATININE 1.99 mg/dL (0.55-1.02); POTASSIUM 4.4 mmol/L (3.5-5.1); SGOT/AST 10 IU/L (3-35); SGPT/ALT 14 U/L (12-78); SODIUM 141 mmol/L (136-145); TOTAL PROTEIN 7.2 gm/dL (6.4-8.2)
[2020-02-07 14:31] LABS: TROPONIN I < 0.015 ng/ml (<0.045)
--- NOTE | 2020-02-07 16:34 | NUR ---
EXCORIATION NOTED UNDER BOTH BREASTS BUT NO OPEN WOUND. LOWER LEGS BILATERALLY SWOLLEN WITH DISCOLORATION NOTED.
[2020-02-07 17:00] VITALS: BP 148/72
--- NOTE | 2020-02-07 17:30 | NUR ---
A 54, admitted to , under the services of GILBERTO Lenz MD with a diagnosis of CHF. Chief complaint is SHORTNESS OF BREATH. Patient arrived via wheel chair from ER. Monitor applied. Initial assessment completed. Vital signs taken and recorded. GILBERTO LENZ MD notified of admission to the unit. Orders received. See assessment for past medical history, medications and allergies. Patient and/or family oriented to unit. [facility] visitation policy reviewed. Clothing/patient valuable form completed. DONNA FORRESTER
[2020-02-07 17:38] VITALS: BP 154/74
[2020-02-07] MEDS ORDERED: PULMICORT RESP0.5 M1 INH (17:51)
[2020-02-07] MEDS ORDERED: NEURONTIN300 MG PO (17:52)
[2020-02-07] MEDS ORDERED: Zaroxolyn,Diul2.5 MG PO (18:58)
[2020-02-07 20:00] VITALS: BP 161/48
--- NOTE | 2020-02-07 20:20 | NUR ---
PATIENT ASSESSMENT COMPLETED WITHOUT INCIDENT AT THIS TIME, PATIENT DENIES ANY CHEST PAIN, SHORTNESS OF BREATH OR DISTRESS AT THIS TIME. PATIENT LYING IN BED IN A POSITION OF COMFORT, CALL LIGHT WITHIN REACH. PATIENT COMPLAINING THAT SHE IS COLD, THERMOSTAT TURNED ALL THE WAY UP AND PATIENT COVERED WITH TWO WARM BLANKETS, WILL CONTINUE TO MONITOR.
--- NOTE | 2020-02-07 22:07 | NUR ---
PATIENT PERFORMED OWN BLOOD SUGAR CHECK AT THIS TIME WITH HER HOME METER. BGL WAS 262. PATIENT HAS AN INSULIN PUMP WHICH SHE PROGRAMED TO GIVE HER 5.5 UNITS OF INSULIN TO COVER THE ABOVE BGL RESULT. CALL LIGHT WITHIN REACH, WILL CONTINUE TO MONITOR.
[2020-02-08] VITALS: BP 136/47
--- NOTE | 2020-02-08 02:15 | NUR ---
PATIENT RESTING IN BED IN A POSITION OF COMFORT AT THIS TIME, NO SIGNS OR SYMPTOMS OF PAIN OR DISTRESS NOTED AT THIS TIME, CALL LIGHT WITHIN REACH WILL CONTINUE TO MONITOR.
--- NOTE | 2020-02-08 06:05 | NUR ---
PATIENT USED HER HOME METER TO CHECK BGL WHICH WAS 103, SHE DID NOT GIVE HERSELF ANY EXTRA INSULIN AT THIS TIME.
--- NOTE | 2020-02-08 06:24 | NUR ---
RIRI PETERSON [id number] Please refer to the physician's history and physical for past medical history, comorbid conditions, and allergies. Diagnosis: CHF EXACERBATION Hossein Score: 16,AT RISK WOUND DESCRIPTIONS: Bilateral lower extremity dry and flaky to touch. Dark in color. No open areas or drainage noted at time of assessment. Patient states she is ordered lac hydrin as well as aquaphor but has not way to apply it and daughters don't apply it like they should. Bilateral breast red and blanchable. No odors noted at time of assessment. No drainage noted at time of assessment. Surface the patient is resting on: Isoflex SKIN PREVENTION RECOMMENDATION: 1. Pressure redistribution support surface as appropriate 2. Elevate heels 3. Remove boots/TEDS every shift and reapply 4. Head of bed 30 degrees as tolerated 5. Assess nutrition and hydration 6. Manage moisture 7. Avoid the use of containment devices while in bed 8. Use absorptive products on surfaces limit layers of linens on bed 9. Turn and reposition every 1-2 hours in bed and every 1 hour in chair as tolerated 10. Weight shifts every 15 minutes while up in chair 11. Offloading with pillows or device to keep heels elevated off bed 12. Monitor skin at least every shift 13. Inspect under medical devices twice a day WOUND TREATMENT RECOMMENDATIONS: Cleanse bilateral breasts with soap and water and pat area dry then apply nystatin powder every 8 hours. Cleanse bilateral lower extremities with soap and water pat areas dry then apply lac-hydrin bid avoid applications between toes.
[2020-02-08 07:02] LABS: CREATININE 1.87 mg/dL (0.55-1.02); POTASSIUM 4.4 mmol/L (3.5-5.1)
[2020-02-08 08:00] VITALS: BP 137/58
[2020-02-08 08:15] LABS: INTERNATIONAL NORM RATIO 1.8 (2.0-3.5)
--- NOTE | 2020-02-08 09:00 | NUR ---
[employer] in to talk to patient. Patient states lives at home with her daughter and granddaughter. There are 0 steps in the home. Physician: Dr. Italia Wolf Pharmacy: [facility] Home health services: none Patient's level of ADLs: MINIMAL ASSIST Patient has working utilities: yes DME: BSC, cane, c-pap, states she needs a new nebulizer (Dr. Wolf notified), O2 @ 3L nc, portable O2 tanks, O2 supplier [facility] Follow-up physician's appointment after d/c: she prefers to make her own follow up appt after discharge Does patient want to access PORTAL?: no Discharge plan discussed with patient. She lives at home with her daughter and granddaughter. She is independent with her ADLs and ambulates with a cane. Discussed home health care services and she is agreeable. She is requesting any home health agency that will take her insurance. She states she has 2 steps to get into the shower and is unable to use. When medically stable she will be discharged to home with home health care services. Her daughter will provide transportation on discharge. OMAR AMARO
--- NOTE | 2020-02-08 09:44 | NUR ---
PHYSICAL THERAPY Screen received pt is from home admitted with CHF, please consult PT if pt has a decline in functional status from baseline. Alexandra Harvey PT
--- NOTE | 2020-02-08 10:00 | NUR ---
PT AWAKE, ALERT, & ORIENTED. UP TO BSC AND BACK TO SITTING UP AT SIDE OF BED. PT DENIES ANY PAIN AT THIS TIME. O2 IN PLACE @ 3L NC. LUNGS DIMINISHED T/O. ABD SOFT, OBESE, NONTENDER. DENIES ANY N/V/D. LAC-HYDRIN APPLIED TO LEGS. CALL LIGHT WITHIN REACH.
[2020-02-08 12:00] VITALS: BP 140/62
--- NOTE | 2020-02-08 15:56 | NUR ---
PT RESTING AT SIDE OF BED, SITTING UP. DENIES ANY NEEDS AT THIS TIME. CALL LIGHT IS WITHIN REACH.
[2020-02-08 16:00] VITALS: BP 138/44
--- NOTE | 2020-02-08 19:00 | NUR ---
REPORT RECEIVED FROM DONNA HENDRICKS. PT LYING IN BED, NO S/S OF DISTRESS NOTED. CALL LIGHT IN REACH
--- NOTE | 2020-02-08 19:34 | NUR ---
24 HR chart check completed.
[2020-02-08 20:00] VITALS: BP 154/62
--- NOTE | 2020-02-08 22:00 | NUR ---
PT TOOK BSG SELF. PT BSG 458 WITH INSULIN PUMP, REFUSING RECHECK. PT MEDICATED SELF WITH 13.5 UNITS. NO COMPLAINTS AT THIS TIME.
[2020-02-09] VITALS: BP 154/48
--- NOTE | 2020-02-09 | NUR ---
PT SLEEPING AT THIS TIME. O2 INTACT; NO S/S OF DISTRESS NOTED. CALL LIGHT IN REACH
--- NOTE | 2020-02-09 04:00 | NUR ---
PT ASLEEP AT THIS TIME, CALL LIGHT IN REACH
[2020-02-09 06:34] LABS: CREATININE 2.03 mg/dL (0.55-1.02); POTASSIUM 4.6 mmol/L (3.5-5.1)
[2020-02-09 08:00] VITALS: BP 129/62
--- NOTE | 2020-02-09 08:00 | NUR ---
PATIENT SITTING UP IN BED. NO DISTRESS NOTED. 02 IN USE VIA 3LNC. PT CHECKS HER OWN BLOOD SUGAR VIA HER OWN GLUCOMETER. BSG READING 250 PER PT. 5 UNITS OF INSULIN GIVEN VIA HER INSULIN PUMP. NO VOICED COMPLAINTS AT THIS TIME. WILL CONTINUE TO MONITOR. VSS. CALL LIGHT WITHIN REACH.
--- NOTE | 2020-02-09 11:30 | NUR ---
BSG 190 PER PATIENT'S OWN GLUCOMETER. INSULIN GIVEN VIA PATIENT'S OWN INSULIN PUMP.
[2020-02-09 12:00] VITALS: BP 127/49
[2020-02-09 16:00] VITALS: BP 136/49
--- NOTE | 2020-02-09 16:30 | NUR ---
BLOOD SUGAR CHECKED BY PATIENT WAS 239. 4.5 UNITS OF INSULIN GIVEN VIA INSULIN PUMP.
--- NOTE | 2020-02-09 16:49 | NUR ---
IN TO SEE PATIENT.
--- NOTE | 2020-02-09 19:20 | NUR ---
REPORT RECEIVED FROM DERRICK HENDRICKS. PT WATCHING TV AT THIS TIME NO COMPLAINTS VOICED, CALL LIGHT IN REACH
[2020-02-09 20:00] VITALS: BP 142/40
--- NOTE | 2020-02-09 21:30 | NUR ---
PT TOOK BSG. PER PT, BSG 424 AND GAVE SELF 12.9 UNITS OF COVERAGE.
--- NOTE | 2020-02-09 23:00 | NUR ---
PT SLEEPING AT THIS TIME, NO S/S OF DISTRESS NOTED, CALL LIGHT IN REACH
--- NOTE | 2020-02-10 01:00 | NUR ---
PT ASLEEP AT THIS TIME.
--- NOTE | 2020-02-10 03:00 | NUR ---
PT SLEEPING, RESPIRATIONS EASY AND UNLABORED. O2 INTACT. CALL LIGHT IN REACH
[2020-02-10 07:25] LABS: POTASSIUM 4.1 mmol/L (3.5-5.1)
--- NOTE | 2020-02-10 09:12 | NUR ---
PT SITTING UP ON EDGE OF BED. 02 IN USE VIA 3LNC. NO VOICED COMPLAINTS AT THIS TIME. PT EAGER FOR DISCHARGE. WILL MONITOR. CALL LIGHT WITHIN REACH.
--- NOTE | 2020-02-10 09:30 | NUR ---
NOTIFIED AT THIS TIME PER PT REQUEST FOR PATIENT C/O A YEAST INFECTION. NEW ORDERS RECEIVED.
[2020-02-10 12:00] VITALS: BP 130/49
[2020-02-10 16:00] VITALS: BP 108/66
--- NOTE | 2020-02-10 19:00 | NUR ---
REPORT RECEIVED FROM DERRICK HENDRICKS. PT SITTING ON SIDE OF BED PLAYING ON PHONE. NO COMPLAINTS VOICED, CALL LIGHT IN REACH
[2020-02-10 20:00] VITALS: BP 133/49; BP 141/69
--- NOTE | 2020-02-10 21:00 | NUR ---
PT WATCHING TV AT THIS TIME. NO COMPLAINTS VOICED. CALL LIGHT IN REACH
[2020-02-11] VITALS: BP 122/46
--- NOTE | 2020-02-11 02:00 | NUR ---
PT SLEEPING, RESPIRATIONS EASY. CALL LIGHT IN REACH
--- NOTE | 2020-02-11 04:00 | NUR ---
SLEEPING, CALL LIGHT IN REACH
[2020-02-11 06:25] LABS: INTERNATIONAL NORM RATIO 1.6 (2.0-3.5)
[2020-02-11 08:00] VITALS: BP 118/62
[2020-02-11 12:00] VITALS: BP 126/70
--- NOTE | 2020-02-11 12:18 | NUR ---
PT REFUSES D/C PHOTOS PER PROTOVCOL FOR BLE AND PARVIZ BREAST EXCORIATION.
--- NOTE | 2020-02-11 12:26 | NUR ---
PT TESTED PER PROTOCOL FOR RAPID COVID-19. COVID RESULTS ARE NEGATIVE.
--- NOTE | 2020-02-11 13:00 | NUR ---
Discharge instructions reviewed with patient/family. Patient receptive and verbalizes understanding. Follow-up care arranged. Written instructions given to patient/family. PHILLIP [place]
--- NOTE | 2020-02-11 14:34 | NUR ---
Faxed home health order to [facility]
--- NOTE | 2020-02-12 14:25 | NUR ---
Received call from patient. Informed patient referral for home health was sent to [facility] and they should be reaching out to her. Discussed [facility] and she is going to call them to see what they charge and if she will be able to afford it.
== END 2020-02-11 13:00 | disposition home health service (06) | DRG 194 ==
LOC: ED 13:35 → 5E 16:14 → EDHOLD 16:14 → 5E 16:45
PROVIDERS: Emergency Medicine; ADMIT Internal Medicine
DX: I13.0 Hypertensive heart and chronic kidney disease with heart failure and stage 1 through stage 4 chronic kidney disease, or unspecified chronic kidney disease (principal); E11.22 Type 2 diabetes mellitus with diabetic chronic kidney disease; J96.10 Chronic respiratory failure, unspecified whether with hypoxia or hypercapnia; N18.3 Chronic kidney disease, stage 3 (moderate); G89.29 Other chronic pain; I50.33 Acute on chronic diastolic (congestive) heart failure; E66.2 Morbid (severe) obesity with alveolar hypoventilation; M17.0 Bilateral primary osteoarthritis of knee; M54.5 Low back pain; I89.0 Lymphedema, not elsewhere classified; I87.2 Venous insufficiency (chronic) (peripheral); D68.51 Activated protein C resistance; Z79.01 Long term (current) use of anticoagulants; Z88.1 Allergy status to other antibiotic agents; Z88.2 Allergy status to sulfonamides; Z91.09 Other allergy status, other than to drugs and biological substances; Z90.49 Acquired absence of other specified parts of digestive tract; Z98.51 Tubal ligation status; Z98.891 History of uterine scar from previous surgery; Z98.42 Cataract extraction status, left eye; Z98.41 Cataract extraction status, right eye; Z82.49 Family history of ischemic heart disease and other diseases of the circulatory system; Z83.3 Family history of diabetes mellitus; Z84.1 Family history of disorders of kidney and ureter; Z80.8 Family history of malignant neoplasm of other organs or systems; Z68.44 Body mass index [BMI] 60.0-69.9, adult

== ENCOUNTER → 2020-06-19 | Outpatient (CLI) | payer OTHER ==
[~2020-06-19] MED LIST changes: +HUMULIN R100 UNIT/1 IJ; +PULMICORT RESP0.5 M1 INH
[2020-06-19 16:31] LABS: ALBUMIN 3.2 gm/dl (3.1-4.5); CREATININE 2.14 mg/dL (0.55-1.02)
[2020-06-19 16:40] LABS: POTASSIUM 5.6 mmol/L (3.5-5.1)
== END | disposition home or self-care (01) ==
LOC: LAB 15:22
PROVIDERS: ATTEND Internal Medicine Nephrology
DX: N18.4 Chronic kidney disease, stage 4 (severe) (principal)

== ENCOUNTER 2020-07-03 21:53 | Inpatient (IN) | payer OTHER ==
[~2020-07-03] VITALS: Ht 175.2 cm; Wt 178.0 kg
[2020-07-03 13:00] VITALS: BP 129/85
[2020-07-03 22:08] VITALS: BP 168/74
[2020-07-03 22:43] LABS: BASO % 0.3 % (0.0-1.0); EOS # 0.2 10*3/uL (0.0-0.4); EOS % 1.3 % (1.0-4.0); LYMPH # 0.8 10*3/uL (1.3-4.4); LYMPH % 6.3 % (27.0-41.0); MEAN CELL VOLUME 92.7 fl (81.0-99.0); MEAN CORPUSCULAR HGB 27.6 pg (27.0-31.0); MEAN CORPUSCULAR HGB CONC 29.8 g/dl (33.0-37.0); MEAN PLATELET VOLUME 9.6 fl (9.6-12.3); MONO # 0.5 10*3/uL (0.1-1.0); MONO % 3.7 % (3.0-9.0); NEUT # 10.8 10*3/uL (2.3-7.9); NEUT % 88.1 % (47.0-73.0); PLATELET COUNT AUTOMATED 201 10*3/uL (130-400); RED BLOOD COUNT 4.53 10*6/uL (4.10-5.10); RED CELL DISTRI WIDTH 14.4 % (0-14.5); WHITE BLOOD COUNT 12.2 10*3/uL (4.8-10.8)
[2020-07-03 22:52] LABS: INTERNATIONAL NORM RATIO 2.2 (2.0-3.5)
[2020-07-03 23:00] LABS: ALBUMIN 3.4 gm/dl (3.1-4.5); ALKALINE PHOSPHATASE 123 U/L (45-117); BUN 96 mg/dl (7-24); CHLORIDE 101 mmol/L (98-107); CREATININE 2.87 mg/dL (0.55-1.02); LIPASE 89 U/L (73-393); SGOT/AST 17 IU/L (3-35); SGPT/ALT 19 U/L (12-78); SODIUM 135 mmol/L (136-145); TOTAL PROTEIN 8.7 gm/dL (6.4-8.2)
[2020-07-03 23:01] LABS: TROPONIN I < 0.015 ng/ml (<0.045)
[2020-07-03 23:03] LABS: POTASSIUM 5.7 mmol/L (3.5-5.1)
--- NOTE | 2020-07-03 23:40 | NUR ---
PT DENIES WOUNDS AT THIS TIME
--- NOTE | 2020-07-04 00:30 | NUR ---
PT STATE MEDICATION EFFECTIVE.
[2020-07-04 00:39] LABS: BILIRUBIN Negative (Negative); BLOOD 2+ (Negative); COLOR Yellow (Yellow); GLUCOSE Trace (Negative); KETONE Negative (Negative); LEUKO ESTERASE 1+ (Negative); NITRITE Negative (Negative); SPECIFIC GRAVITY 1.015 (1.001-1.030); UROBILINOGEN 0.2 E.U./dl (0.0-1.0)
[2020-07-04 00:44] LABS: CLARITY Clear (Clear)
[2020-07-04 00:55] LABS: BACTERIA 1+
--- NOTE | 2020-07-04 04:50 | NUR ---
DARK, SCALEY, SKIN NOTED BILATERALLY ON PT LOWER LIMBS. NO OPEN AREAS NOTED AT THIS TIME.
[2020-07-04 05:54] VITALS: BP 108/64
--- NOTE | 2020-07-04 06:10 | NUR ---
PT TO BEDSIDE COMMODE. WILL PERFORM BG CHECK AFTER PT RETURNS TO THE COT.
--- NOTE | 2020-07-04 07:01 | NUR ---
BGM 127 AT THIS TIME.
[2020-07-04 08:00] VITALS: BP 133/50
--- NOTE | 2020-07-04 08:47 | NUR ---
PT UP TO BEDSIDE. BREAKFAST TRAY DELIVERED.
--- NOTE | 2020-07-04 09:06 | NUR ---
PT WITH A SMALL WATERY BM.
--- NOTE | 2020-07-04 10:03 | NUR ---
PT UP IN WHEELCHAIR. SHE FELT MORE COMFORTABLE SITTING IN THE CHAIR THEN IN THE BED. PT WITH NO ACUTE DISTRESS NOTED AT THIS TIME.
--- NOTE | 2020-07-04 11:11 | NUR ---
PT SITTING IN CHAIR WITH EYES CLOSED. WILL CONTINUE TO MONITOR.
--- NOTE | 2020-07-04 11:58 | NUR ---
PT COMPLAINING OF A HEADACHE AT THIS TIME.
[2020-07-04 12:00] VITALS: BP 133/50
--- NOTE | 2020-07-04 13:00 | NUR ---
A 55, admitted to , under the services of Dr. LAUREEN SEPULVEDA,FANTA Orellana with a diagnosis of ABDOMINAL PAIN, ACUTE KIDNEY INJURY. Chief complaint is ABDOMINAL PAIN RADIATING TO LEFT FLANK. Patient arrived via bed from ER. Monitor applied. Initial assessment completed. Vital signs taken and recorded. DR. LAUREEN SEPULVEDA,FANTA Orellana notified of admission to the unit. Orders received. See assessment for past medical history, medications and allergies. Patient and/or family oriented to unit. [facility] visitation policy reviewed. Clothing/patient valuable form completed. SMITH JACINTO
--- NOTE | 2020-07-04 13:25 | NUR ---
DR. NORWOOD NOTIFIED OF CONSULT.
[2020-07-04 16:00] VITALS: BP 133/50
[2020-07-04 20:00] VITALS: BP 138/51
[2020-07-04 23:18] VITALS: BP 136/60
[2020-07-05 06:08] LABS: BASO % 0.3 % (0.0-1.0); EOS # 0.3 10*3/uL (0.0-0.4); HEMATOCRIT 39.3 % (37.0-47.0); LYMPH # 1.7 10*3/uL (1.3-4.4); MEAN CELL VOLUME 93.1 fl (81.0-99.0); MEAN PLATELET VOLUME 9.6 fl (9.6-12.3); MONO # 0.7 10*3/uL (0.1-1.0); MONO % 6.3 % (3.0-9.0); NEUT # 8.4 10*3/uL (2.3-7.9); PLATELET COUNT AUTOMATED 206 10*3/uL (130-400); RED BLOOD COUNT 4.22 10*6/uL (4.10-5.10); RED CELL DISTRI WIDTH 14.6 % (0-14.5); WHITE BLOOD COUNT 11.2 10*3/uL (4.8-10.8)
[2020-07-05 06:11] LABS: ALBUMIN 3.2 gm/dl (3.1-4.5); CREATININE 3.66 mg/dL (0.55-1.02); TOTAL PROTEIN 7.8 gm/dL (6.4-8.2)
[2020-07-05 06:24] LABS: POTASSIUM 4.7 mmol/L (3.5-5.1)
--- NOTE | 2020-07-05 07:30 | NUR ---
PT RESTING IN BED.RESPS EASY AND NON LABORED. NO S/S OF DISTRESS NOTED. VSS. WHITE BOARD UPDATED. POC DISCUSSED W PT. A/O X3. IVF COMPLETE. PT DENIES ABD PAIN AT THIS TIME. 3L NC INTACT. WILL CONTINUE TO MONITOR. CALL LIGHT WITHIN REACH.
[2020-07-05 08:00] VITALS: BP 118/62
--- NOTE | 2020-07-05 11:26 | NUR ---
BLOOD SUGAR 360,PT STATES SHE WANTS 5 UNITS OF INSULIN.
[2020-07-05 12:00] VITALS: BP 143/51
--- NOTE | 2020-07-05 13:58 | NUR ---
Patient resting quietly with no c/o discomfort. Respirations easy and regular. Vital signs stable. No overt distress. HISSOM,CIRA
[2020-07-05 16:00] VITALS: BP 105/68
[2020-07-05 18:24] LABS: URINE CREATININE RANDOM 70.8 mg/dL
[2020-07-05 20:00] VITALS: BP 121/38; BP 98/48
--- NOTE | 2020-07-05 20:00 | NUR ---
SPOKE WITH DR. GARDUNO AT THIS TIME AND NOTIFIED HER OF PATIENTS BP BEING 98/48. ORDER RECIEVED TO HOLD COREG TONIGHT AND TO HOLD BLOOD PRESSURE MEDICATION FOR SYSTOLIC <120
[2020-07-06] VITALS: BP 108/56; BP 141/46
--- NOTE | 2020-07-06 02:00 | NUR ---
PATIENT SITTING UP IN CHAIR. NO DISTRESS NOTED. IV FLUIDS INFUSING. BREATHING IS EASY AND REGULAR ON 3L. CALL LIGHT WITHIN REACH, WILL MONITOR
--- NOTE | 2020-07-06 02:32 | NUR ---
24 HR chart check completed.
[2020-07-06 05:45] LABS: CREATININE 3.91 mg/dL (0.55-1.02); POTASSIUM 4.3 mmol/L (3.5-5.1)
[2020-07-06 06:20] LABS: INTERNATIONAL NORM RATIO 2.2 (2.0-3.5)
--- NOTE | 2020-07-06 07:34 | NUR ---
24 HR chart check completed.
[2020-07-06 08:00] VITALS: BP 120/58; BP 162/65
--- NOTE | 2020-07-06 09:00 | NUR ---
SITTING IN RECLINER, NO ACUTE DISTRESS NOTED. RESPIRATIONS EASY. LUNGS DIMINISHED, CLEAR. PULSE OX 98% 3L. CLAIMS NON-PROD COUGH, NONE NOTED. IV FLUIDS INFUSING PER ORDER. CALL LIGHT WITHIN REACH. NO VOICED COMPLAINTS
--- NOTE | 2020-07-06 10:00 | NUR ---
DECLINES GABAPENTIN STATING "IT DON'T WORK"
[2020-07-06] MEDS ORDERED: LISINOPRIL2.5 MG PO (10:04)
[2020-07-06 12:00] VITALS: BP 122/64
--- NOTE | 2020-07-06 13:00 | NUR ---
SITTING AT BEDSIDE, NO DISTRESS NOTED. RESPIRATIONS EASY. O2 IN USE. CALL LIGHT WITHIN REACH. NO VOICED COMPLAINTS
--- NOTE | 2020-07-06 13:15 | NUR ---
DR NORWOOD PRESENT ON FLOOR TO ASSESS PATIENT AND DISCUSS PLAN OF CARE
--- NOTE | 2020-07-06 15:00 | NUR ---
DR GARDUNO HERE TO ASSESS PATIENT AND DISCUSS PLAN OF CARE
[2020-07-06 16:00] VITALS: BP 129/50
--- NOTE | 2020-07-06 16:00 | NUR ---
PATIENT REQUESTING RN TO ASSESS UNDER BREASTS AND GROIN/ABD FOLDS. ALL SITES RED, EXCORIATED, MUSTY ODOR. LEFT BREAST > RIGHT AND GROIN/ABD FOLDS WORSE. FUNGAL/YEAST LIKE INFECTION. REFUSING PICS. ONLY WANTS MEDS ORDERED
--- NOTE | 2020-07-06 18:20 | NUR ---
PATIENT REQUESTING TO CHECK OWN GLUCOSE WITH METER AND COVER PER INSULIN PUMP. BSG ALSO CHECKED WITH HOSPITAL GLUCOMETER, 296. COVERED WITH 7.5 UNITS PER INSULIN PUMP. WILL RECHECK LATER
[2020-07-06 20:00] VITALS: BP 123/54
--- NOTE | 2020-07-06 21:00 | NUR ---
PATIENT REQUESTING RN TAKE MONEY AND CREDIT CARD TO DAUGHTER AT MAIN ENTERANCE. LOCK BOX FORM OBTAINED AND FILLED OUT, PATIENT SIGNED PAPER STATING $60 [place] AND BANK/CREDIT CARD PLACED IN ENVELOP. DAUGHTER PRESENT AT FRONT DOOR ON FACETIME WITH PATIENT, OPENED ENVELOP AND VERIFIED CONTENTS. PATIENT'S DAUGHTER SIGNED PAPER. LOCK BOX PAPER PLACED ON CHART FOR VERIFICATION
--- NOTE | 2020-07-06 22:00 | NUR ---
ASSISTED TO LAY DOWN. O2 IN USE. CALL LIGHT WITHIN REACH
--- NOTE | 2020-07-06 22:00 | NUR ---
PATIENT CHECKED OWN BSG, 382. COVERING PER INSULIN PUMP. ONCOMING RN TO MONITOR
[2020-07-07] VITALS: BP 104/75
--- NOTE | 2020-07-07 | NUR ---
PT REFUSED OXYCODONE.
--- NOTE | 2020-07-07 06:00 | NUR ---
PT REFUSED ALL AM PO MEDS AND REFUSED TO ALLOW BS TO BE TAKEN.
[2020-07-07 06:44] LABS: INTERNATIONAL NORM RATIO 2.4 (2.0-3.5)
[2020-07-07 06:46] LABS: CREATININE 3.57 mg/dL (0.55-1.02); POTASSIUM 4.3 mmol/L (3.5-5.1)
[2020-07-07 08:00] VITALS: BP 126/58
--- NOTE | 2020-07-07 09:00 | NUR ---
Lining Mechanic in to talk to patient. Patient states lives at home with her daughter and granddaughter. There are 0 steps in the home. Physician: Dr. Italia Wolf Pharmacy: [facility] Home health services: would like [facility] on discharge Patient's level of ADLs: MINIMAL ASSIST Patient has working utilities: yes DME: BSC, cane, c-pap, nebulizer, O2 @ 3L nc, portable O2 tanks, O2 supplier [employer]. She states she is waiting for a hospital bed and lift chair from medical services. Follow-up physician's appointment after d/c: she prefers to make her own follow up appt after discharge Does patient want to access PORTAL?: no Discharge plan discussed with patient. She lives at home with her daughter and granddaughter. She is independent with her ADLs and ambulates with a cane. Discussed home health care services and she is agreeable. When provided with a list of agencies she chose [facility] as she has had them in the past. She states she is waiting to hear back from medical services regarding her hospital bed, lift chair, and O2. When medically stable she will be discharged to home with [facility] care services. She states her daughter will provide transportation on discharge. OMAR AMARO
--- NOTE | 2020-07-07 11:57 | NUR ---
Faxed home health order to [facility] along with clinical.
[2020-07-07 12:00] VITALS: BP 121/66
--- NOTE | 2020-07-07 15:24 | NUR ---
PT REFUSED DA A T THIS TIME. PT RESTING. RESPS REGULAR AND UNLABORED.
[2020-07-07 16:00] VITALS: BP 122/53
[2020-07-07 20:00] VITALS: BP 123/42
--- NOTE | 2020-07-07 21:10 | NUR ---
IV started left arm with #22 protective cath after 0 attempts. Site prepped with Chloroprep. Sterile dressing applied. Patient tolerated procedure well. HERB JACINTO
--- NOTE | 2020-07-07 21:10 | NUR ---
Hep Lock discontinued, RAN. Site symptomatic, PAINFUL/EDEMA. Pressure applied. Sterile dressing applied. HERB JACINTO
[2020-07-08] VITALS: BP 138/60
[2020-07-08 06:57] LABS: INTERNATIONAL NORM RATIO 2.4 (2.0-3.5)
[2020-07-08 08:00] VITALS: BP 127/47
--- NOTE | 2020-07-08 09:00 | NUR ---
CM in to see patient. She is sitting on the edge of her bed. When medically stable she will be discharged to home with [facility]. Discussed discharge planning with Dr. Wolf. Plan is to discharge patient tomorrow.
[2020-07-08 12:00] VITALS: BP 126/56
[2020-07-08 12:35] LABS: ALBUMIN 2.9 gm/dl (3.1-4.5); CREATININE 3.14 mg/dL (0.55-1.02); POTASSIUM 4.4 mmol/L (3.5-5.1); TOTAL PROTEIN 7.4 gm/dL (6.4-8.2)
[2020-07-08 16:00] VITALS: BP 145/57
--- NOTE | 2020-07-08 19:30 | NUR ---
PATIENT VOICED NO COMPLAINTS. NO OVERT DISTRESS NOTED, RESP ARE EASY AND REGULAR ON 3L NC. BED IS LOCKED IN LOWEST POSITION. CALL LIGHT WITHIN REACH
[2020-07-08 20:00] VITALS: BP 149/67
--- NOTE | 2020-07-08 22:00 | NUR ---
PATIENT IS REFUSING NEURONTIN AND OXYCODONE.
[2020-07-08 23:12] VITALS: BP 144/70
[2020-07-09 06:39] LABS: BASO # 0.1 10*3/uL (0.0-0.1); BASO % 0.7 % (0.0-1.0); EOS # 0.4 10*3/uL (0.0-0.4); EOS % 5.2 % (1.0-4.0); HEMATOCRIT 35.9 % (37.0-47.0); LYMPH # 1.4 10*3/uL (1.3-4.4); LYMPH % 19.4 % (27.0-41.0); MEAN CELL VOLUME 93.5 fl (81.0-99.0); MEAN CORPUSCULAR HGB 27.6 pg (27.0-31.0); MEAN CORPUSCULAR HGB CONC 29.5 g/dl (33.0-37.0); MEAN PLATELET VOLUME 8.8 fl (9.6-12.3); MONO # 0.5 10*3/uL (0.1-1.0); MONO % 7.3 % (3.0-9.0); NEUT # 4.8 10*3/uL (2.3-7.9); NEUT % 67.3 % (47.0-73.0); PLATELET COUNT AUTOMATED 178 10*3/uL (130-400); RED BLOOD COUNT 3.84 10*6/uL (4.10-5.10); RED CELL DISTRI WIDTH 14.6 % (0-14.5); WHITE BLOOD COUNT 7.2 10*3/uL (4.8-10.8)
[2020-07-09 06:48] LABS: INTERNATIONAL NORM RATIO 2.2 (2.0-3.5)
[2020-07-09 07:04] LABS: CREATININE 2.79 mg/dL (0.55-1.02)
[2020-07-09 08:00] VITALS: BP 128/51
--- NOTE | 2020-07-09 09:00 | NUR ---
CM in to see patient. She is sitting on the edge of her bed. Discussed home health care services and she remains agreeable. When medically stable she will be discharged to home with [facility]. Discussed discharge planning with Dr. Marie. Patient's creatinine remains elevated and Dr. Blackmno is following,
[2020-07-09 12:00] VITALS: BP 141/48
[2020-07-09] MEDS ORDERED: BUMETANIDE1 MG PO (14:35)
--- NOTE | 2020-07-09 15:32 | NUR ---
Faxed discharge instructions to [facility]
--- NOTE | 2020-07-09 15:45 | NUR ---
Discharge instructions reviewed with patient/family. Patient receptive and verbalizes understanding. Follow-up care arranged. Written instructions given to patient/family. PHILLIP [place]
== END 2020-07-09 15:45 | disposition home health service (06) | DRG 469 ==
LOC: ED 21:53 → 4E 07-04 05:28 → EDHOLD 07-04 05:28 → 4E 07-04 12:40
PROVIDERS: Internal Medicine Nephrology; Physician Assistant; ADMIT Internal Medicine; ATTEND Internal Medicine
DX: N17.9 Acute kidney failure, unspecified (principal); N39.0 Urinary tract infection, site not specified; N13.6 Pyonephrosis; N18.4 Chronic kidney disease, stage 4 (severe); E11.22 Type 2 diabetes mellitus with diabetic chronic kidney disease; E87.5 Hyperkalemia; J44.9 Chronic obstructive pulmonary disease, unspecified; R31.9 Hematuria, unspecified; I50.32 Chronic diastolic (congestive) heart failure; E66.01 Morbid (severe) obesity due to excess calories; G89.29 Other chronic pain; M54.5 Low back pain; F41.1 Generalized anxiety disorder; I13.0 Hypertensive heart and chronic kidney disease with heart failure and stage 1 through stage 4 chronic kidney disease, or unspecified chronic kidney disease; M17.0 Bilateral primary osteoarthritis of knee; E87.1 Hypo-osmolality and hyponatremia; E83.9 Disorder of mineral metabolism, unspecified; E11.65 Type 2 diabetes mellitus with hyperglycemia; D68.51 Activated protein C resistance; Z88.1 Allergy status to other antibiotic agents; Z88.2 Allergy status to sulfonamides; Z90.49 Acquired absence of other specified parts of digestive tract; Z83.3 Family history of diabetes mellitus; Z84.1 Family history of disorders of kidney and ureter; Z68.44 Body mass index [BMI] 60.0-69.9, adult; Z79.01 Long term (current) use of anticoagulants; Z68.41 Body mass index [BMI] 40.0-44.9, adult

== ENCOUNTER 2020-08-25 22:55 | Emergency (ER) | payer OTHER ==
[~2020-08-25] VITALS: Ht 175.2 cm; Wt 176.0 kg
[2020-08-25 23:49] LABS: BASO % 0.3 % (0.0-1.0); EOS # 0.5 10*3/uL (0.0-0.4); EOS % 3.9 % (1.0-4.0); HEMATOCRIT 39.1 % (37.0-47.0); LYMPH # 1.3 10*3/uL (1.3-4.4); LYMPH % 9.6 % (27.0-41.0); MEAN CELL VOLUME 92.4 fl (81.0-99.0); MEAN CORPUSCULAR HGB 27.4 pg (27.0-31.0); MEAN CORPUSCULAR HGB CONC 29.7 g/dl (33.0-37.0); MEAN PLATELET VOLUME 8.5 fl (9.6-12.3); MONO # 0.7 10*3/uL (0.1-1.0); MONO % 5.3 % (3.0-9.0); NEUT # 10.8 10*3/uL (2.3-7.9); NEUT % 80.6 % (47.0-73.0); PLATELET COUNT AUTOMATED 225 10*3/uL (130-400); RED BLOOD COUNT 4.23 10*6/uL (4.10-5.10); RED CELL DISTRI WIDTH 15.2 % (0-14.5); WHITE BLOOD COUNT 13.4 10*3/uL (4.8-10.8)
[2020-08-25 23:59] LABS: INTERNATIONAL NORM RATIO 3.2 (2.0-3.5)
[2020-08-26 00:03] LABS: ALBUMIN 3.2 gm/dl (3.1-4.5); CREATININE 2.45 mg/dL (0.55-1.02); POTASSIUM 5.4 mmol/L (3.5-5.1); TOTAL PROTEIN 8.1 gm/dL (6.4-8.2)
[2020-08-26 00:13] LABS: BILIRUBIN Negative (Negative); BLOOD 3+ (Negative); CLARITY Cloudy (Clear); COLOR Yellow (Yellow); GLUCOSE Negative (Negative); KETONE Negative (Negative); LEUKO ESTERASE 1+ (Negative); NITRITE Negative (Negative); UROBILINOGEN 0.2 E.U./dl (0.0-1.0)
[2020-08-26 00:31] LABS: BACTERIA 1+; EPITHELIAL CELLS TNTC; RBC 21-30 rbc/hpf (0-2)
[2020-08-26 02:15] VITALS: BP 118/50
== END 2020-08-26 06:34 | disposition other institution (70) ==
LOC: ED 22:55
PROVIDERS: Internal Medicine
DX: N13.2 Hydronephrosis with renal and ureteral calculous obstruction (principal); I13.0 Hypertensive heart and chronic kidney disease with heart failure and stage 1 through stage 4 chronic kidney disease, or unspecified chronic kidney disease; E11.22 Type 2 diabetes mellitus with diabetic chronic kidney disease; N18.4 Chronic kidney disease, stage 4 (severe); I50.9 Heart failure, unspecified; J44.9 Chronic obstructive pulmonary disease, unspecified; Z79.4 Long term (current) use of insulin; Z87.442 Personal history of urinary calculi; Z88.2 Allergy status to sulfonamides; Z88.1 Allergy status to other antibiotic agents; Z79.899 Other long term (current) drug therapy

== ENCOUNTER → 2020-10-16 | Outpatient (CLI) | payer OTHER ==
[~2020-10-16] MED LIST changes: +AMMONIUM LACTA227 GM T; +OXYCODONE HCL10 M1 PO; +POLY-IRON 150150 MG PO
[2020-10-16 14:48] LABS: BASO # 0.1 10*3/uL (0.0-0.1); BASO % 0.4 % (0.0-1.0); EOS # 0.4 10*3/uL (0.0-0.4); EOS % 3.7 % (1.0-4.0); HEMATOCRIT 34.1 % (37.0-47.0); LYMPH # 1.4 10*3/uL (1.3-4.4); LYMPH % 12.1 % (27.0-41.0); MEAN CORPUSCULAR HGB 28.7 pg (27.0-31.0); MEAN CORPUSCULAR HGB CONC 30.2 g/dl (33.0-37.0); MEAN PLATELET VOLUME 8.9 fl (9.6-12.3); MONO # 0.5 10*3/uL (0.1-1.0); MONO % 4.4 % (3.0-9.0); NEUT # 8.8 10*3/uL (2.3-7.9); NEUT % 77.9 % (47.0-73.0); PLATELET COUNT AUTOMATED 223 10*3/uL (130-400); RED BLOOD COUNT 3.59 10*6/uL (4.10-5.10); RED CELL DISTRI WIDTH 14.6 % (0-14.5); WHITE BLOOD COUNT 11.3 10*3/uL (4.8-10.8)
[2020-10-16 15:12] LABS: CREATININE 1.96 mg/dL (0.55-1.02); FREE T4 1.08 ng/dl (0.76-1.46); POTASSIUM 5.2 mmol/L (3.5-5.1); TOTAL PROTEIN 7.5 gm/dL (6.4-8.2)
[2020-10-16 15:16] LABS: THYROID STIM HORMONE (HS) 7.23 uIU/ml (0.358-4.75)
[2020-10-16 15:19] LABS: VITAMIN D, 25-HYDROXY 19.8 ng/mL (30-100)
== END | disposition home or self-care (01) ==
LOC: LAB 14:12
PROVIDERS: Internal Medicine; ATTEND Internal Medicine Nephrology
DX: Z00.00 Encounter for general adult medical examination without abnormal findings (principal); M54.5 Low back pain; N18.4 Chronic kidney disease, stage 4 (severe); D52.9 Folate deficiency anemia, unspecified; D51.9 Vitamin B12 deficiency anemia, unspecified; R70.0 Elevated erythrocyte sedimentation rate; R79.82 Elevated C-reactive protein (CRP); R74.8 Abnormal levels of other serum enzymes; R79.89 Other specified abnormal findings of blood chemistry; E55.9 Vitamin D deficiency, unspecified; R53.81 Other malaise; Z13.21 Encounter for screening for nutritional disorder; Z13.220 Encounter for screening for lipoid disorders; Z13.1 Encounter for screening for diabetes mellitus

== ENCOUNTER 2020-12-28 00:45 | Inpatient (IN) | payer OTHER ==
[~2020-12-28] VITALS: Ht 172.7 cm; Wt 179.3 kg
[~2020-12-28 00:45] MED LIST changes: -AMMONIUM LACTA227 GM T; -OXYCODONE HCL10 M1 PO; -POLY-IRON 150150 MG PO
[2020-12-28 00:48] VITALS: BP 170/90
[2020-12-28 01:34] LABS: BASO # 0.1 10*3/uL (0.0-0.1); BASO % 0.4 % (0.0-1.0); EOS # 0.4 10*3/uL (0.0-0.4); EOS % 3.7 % (1.0-4.0); HEMATOCRIT 33.1 % (37.0-47.0); LYMPH # 1.3 10*3/uL (1.3-4.4); LYMPH % 11.4 % (27.0-41.0); MEAN CELL VOLUME 96.5 fl (81.0-99.0); MEAN CORPUSCULAR HGB 28.9 pg (27.0-31.0); MEAN CORPUSCULAR HGB CONC 29.9 g/dl (33.0-37.0); MEAN PLATELET VOLUME 8.7 fl (9.6-12.3); MONO # 0.6 10*3/uL (0.1-1.0); MONO % 4.8 % (3.0-9.0); NEUT # 9.3 10*3/uL (2.3-7.9); NEUT % 79.3 % (47.0-73.0); PLATELET COUNT AUTOMATED 243 10*3/uL (130-400); RED BLOOD COUNT 3.43 10*6/uL (4.10-5.10); RED CELL DISTRI WIDTH 14.4 % (0-14.5); WHITE BLOOD COUNT 11.8 10*3/uL (4.8-10.8)
[2020-12-28 01:43] LABS: CREATININE 2.01 mg/dL (0.55-1.02); POTASSIUM 4.9 mmol/L (3.5-5.1); TOTAL PROTEIN 8.2 gm/dL (6.4-8.2)
[2020-12-28 02:05] VITALS: BP 144/40
[2020-12-28 06:26] LABS: INTERNATIONAL NORM RATIO 3.4 (2.0-3.5)
[2020-12-28 08:00] VITALS: BP 136/55
[2020-12-28] MEDS ORDERED: OXYCODONE HCL10 M1 PO (09:02)
[2020-12-28 12:00] VITALS: BP 133/53
[2020-12-28 16:00] VITALS: BP 125/56
[2020-12-28 20:00] VITALS: BP 133/52
[2020-12-29 00:46] VITALS: BP 112/33
[2020-12-29 06:09] LABS: CREATININE 2.27 mg/dL (0.55-1.02); POTASSIUM 4.8 mmol/L (3.5-5.1)
[2020-12-29 07:50] VITALS: BP 126/64
[2020-12-29 11:14] LABS: BILIRUBIN Negative (Negative); BLOOD 3+ (Negative); CLARITY Cloudy (Clear); COLOR Yellow (Yellow); GLUCOSE Trace (Negative); KETONE Negative (Negative); LEUKO ESTERASE 2+ (Negative); NITRITE Negative (Negative); SPECIFIC GRAVITY 1.015 (1.001-1.030); UROBILINOGEN 0.2 E.U./dl (0.0-1.0)
[2020-12-29 11:25] LABS: BACTERIA 1+; EPITHELIAL CELLS 16-20; RBC 21-30 rbc/hpf (0-2); WBC 16-20 wbc/hpf (0-5)
[2020-12-29 12:00] VITALS: BP 124/60
[2020-12-29 16:00] VITALS: BP 117/81
[2020-12-29 20:00] VITALS: BP 121/49
[2020-12-30] VITALS: BP 120/50
[2020-12-30 07:29] LABS: VITAMIN D, 25-HYDROXY 25.6 ng/mL (30-100)
[2020-12-30 07:30] LABS: FERRITIN 82.6 ng/mL (10.0-291.0); PTH INTACT 95.3 pg/mL (18.5-88.0)
[2020-12-30 08:00] VITALS: BP 126/68
[2020-12-30 09:21] LABS: INTERNATIONAL NORM RATIO 4.2 (2.0-3.5)
[2020-12-30 12:00] VITALS: BP 142/57
[2020-12-30 16:00] VITALS: BP 146/48
[2020-12-30 20:00] VITALS: BP 167/55
[2020-12-31] VITALS: BP 114/49
[2020-12-31 06:49] LABS: BASO % 0.5 % (0.0-1.0); EOS # 0.4 10*3/uL (0.0-0.4); EOS % 4.5 % (1.0-4.0); HEMATOCRIT 32.9 % (37.0-47.0); LYMPH # 1.5 10*3/uL (1.3-4.4); LYMPH % 17.9 % (27.0-41.0); MEAN CELL VOLUME 98.5 fl (81.0-99.0); MEAN CORPUSCULAR HGB 28.7 pg (27.0-31.0); MEAN CORPUSCULAR HGB CONC 29.2 g/dl (33.0-37.0); MEAN PLATELET VOLUME 8.7 fl (9.6-12.3); MONO # 0.7 10*3/uL (0.1-1.0); MONO % 8.7 % (3.0-9.0); NEUT # 5.6 10*3/uL (2.3-7.9); PLATELET COUNT AUTOMATED 221 10*3/uL (130-400); RED BLOOD COUNT 3.34 10*6/uL (4.10-5.10); RED CELL DISTRI WIDTH 14.6 % (0-14.5); WHITE BLOOD COUNT 8.3 10*3/uL (4.8-10.8)
[2020-12-31 06:57] LABS: INTERNATIONAL NORM RATIO 3.4 (2.0-3.5)
[2020-12-31 07:46] LABS: CREATININE 2.35 mg/dL (0.55-1.02); POTASSIUM 4.7 mmol/L (3.5-5.1)
[2020-12-31 12:00] VITALS: BP 145/57
[2020-12-31 16:00] VITALS: BP 158/49
[2020-12-31 20:00] VITALS: BP 110/60; BP 135/39
[2021-01-01] VITALS: BP 153/46
[2021-01-01 06:09] LABS: BASO # 0.1 10*3/uL (0.0-0.1); BASO % 0.6 % (0.0-1.0); EOS # 0.4 10*3/uL (0.0-0.4); EOS % 4.2 % (1.0-4.0); HEMATOCRIT 33.2 % (37.0-47.0); LYMPH # 1.5 10*3/uL (1.3-4.4); MEAN CELL VOLUME 98.8 fl (81.0-99.0); MEAN CORPUSCULAR HGB 28.9 pg (27.0-31.0); MEAN CORPUSCULAR HGB CONC 29.2 g/dl (33.0-37.0); MEAN PLATELET VOLUME 8.7 fl (9.6-12.3); MONO # 0.8 10*3/uL (0.1-1.0); NEUT # 5.7 10*3/uL (2.3-7.9); NEUT % 67.6 % (47.0-73.0); PLATELET COUNT AUTOMATED 218 10*3/uL (130-400); RED BLOOD COUNT 3.36 10*6/uL (4.10-5.10); RED CELL DISTRI WIDTH 14.6 % (0-14.5); WHITE BLOOD COUNT 8.5 10*3/uL (4.8-10.8)
[2021-01-01 06:15] LABS: INTERNATIONAL NORM RATIO 2.5 (2.0-3.5)
[2021-01-01 06:22] LABS: POTASSIUM 5.4 mmol/L (3.5-5.1)
[2021-01-01 06:34] LABS: ALBUMIN 2.7 gm/dl (3.1-4.5); CREATININE 2.17 mg/dL (0.55-1.02); TOTAL PROTEIN 7.7 gm/dL (6.4-8.2)
[2021-01-01 08:00] VITALS: BP 148/53
[2021-01-01] MEDS ORDERED: POLY-IRON 150150 MG PO (08:12)
[2021-01-01] MEDS ORDERED: AMMONIUM LACTA227 GM T (08:12)
[2021-01-01] MEDS ORDERED: AUGMENTIN 875875 MG PO (08:12)
[2021-01-01 12:00] VITALS: BP 142/55
== END 2021-01-01 14:15 | disposition home health service (06) | DRG 133 ==
LOC: ED 00:45 → 4E 02:29 → EDHOLD 02:29 → 4E 03:35
PROVIDERS: Internal Medicine; Internal Medicine Nephrology; ADMIT Internal Medicine; ATTEND Internal Medicine
DX: J96.20 Acute and chronic respiratory failure, unspecified whether with hypoxia or hypercapnia (principal); I13.0 Hypertensive heart and chronic kidney disease with heart failure and stage 1 through stage 4 chronic kidney disease, or unspecified chronic kidney disease; I50.31 Acute diastolic (congestive) heart failure; E11.22 Type 2 diabetes mellitus with diabetic chronic kidney disease; N18.4 Chronic kidney disease, stage 4 (severe); N17.9 Acute kidney failure, unspecified; D68.51 Activated protein C resistance; D50.9 Iron deficiency anemia, unspecified; B95.1 Streptococcus, group B, as the cause of diseases classified elsewhere; F41.9 Anxiety disorder, unspecified; E87.5 Hyperkalemia; N13.6 Pyonephrosis; E83.9 Disorder of mineral metabolism, unspecified; E83.39 Other disorders of phosphorus metabolism; E11.42 Type 2 diabetes mellitus with diabetic polyneuropathy; E66.01 Morbid (severe) obesity due to excess calories; Z88.2 Allergy status to sulfonamides; Z88.8 Allergy status to other drugs, medicaments and biological substances; Z79.4 Long term (current) use of insulin; Z79.01 Long term (current) use of anticoagulants; Z87.442 Personal history of urinary calculi; Z68.44 Body mass index [BMI] 60.0-69.9, adult; N39.0 Urinary tract infection, site not specified

== ENCOUNTER 2021-02-16 20:57 | Inpatient (IN) | payer OTHER ==
[~2021-02-16] VITALS: Ht 175.2 cm; Wt 187.4 kg
[~2021-02-16 20:57] MED LIST changes: +AMMONIUM LACTA227 GM T; +OXYCODONE HCL10 M1 PO; +POLY-IRON 150150 MG PO
[2021-02-16 21:05] VITALS: BP 180/74
[2021-02-16 22:20] LABS: BASO % 0.4 % (0.0-1.0); EOS # 0.3 10*3/uL (0.0-0.4); EOS % 3.3 % (1.0-4.0); HEMATOCRIT 36.6 % (37.0-47.0); LYMPH # 0.9 10*3/uL (1.3-4.4); LYMPH % 9.2 % (27.0-41.0); MEAN CELL VOLUME 96.8 fl (81.0-99.0); MEAN PLATELET VOLUME 9.2 fl (9.6-12.3); MONO # 0.3 10*3/uL (0.1-1.0); MONO % 3.5 % (3.0-9.0); NEUT # 7.8 10*3/uL (2.3-7.9); NEUT % 83.1 % (47.0-73.0); PLATELET COUNT AUTOMATED 207 10*3/uL (130-400); RED BLOOD COUNT 3.78 10*6/uL (4.10-5.10); RED CELL DISTRI WIDTH 15.3 % (0-14.5); WHITE BLOOD COUNT 9.4 10*3/uL (4.8-10.8)
[2021-02-16 22:35] LABS: ALBUMIN 3.1 gm/dl (3.1-4.5); CREATININE 2.47 mg/dL (0.55-1.02); POTASSIUM 5.2 mmol/L (3.5-5.1); TOTAL PROTEIN 8.2 gm/dL (6.4-8.2)
[2021-02-16 22:39] VITALS: BP 138/70; BP 140/72
[2021-02-17 00:32] VITALS: BP 142/72
[2021-02-17 06:16] LABS: INTERNATIONAL NORM RATIO 3.5 (2.0-3.5)
[2021-02-17 08:15] VITALS: BP 114/45
[2021-02-17 12:00] VITALS: BP 91/32
[2021-02-17 14:56] LABS: POTASSIUM 5.5 mmol/L (3.5-5.1)
[2021-02-17 16:00] VITALS: BP 103/51
[2021-02-17 20:00] VITALS: BP 112/54
[2021-02-18] VITALS: BP 101/49
[2021-02-18 06:00] LABS: CREATININE 3.94 mg/dL (0.55-1.02); POTASSIUM 5.5 mmol/L (3.5-5.1)
[2021-02-18 06:30] LABS: BASO # 0.1 10*3/uL (0.0-0.1); BASO % 0.6 % (0.0-1.0); EOS # 0.2 10*3/uL (0.0-0.4); HEMATOCRIT 34.5 % (37.0-47.0); LYMPH # 0.9 10*3/uL (1.3-4.4); LYMPH % 9.1 % (27.0-41.0); MEAN CORPUSCULAR HGB 27.4 pg (27.0-31.0); MEAN CORPUSCULAR HGB CONC 27.2 g/dl (33.0-37.0); MEAN PLATELET VOLUME 9.9 fl (9.6-12.3); MONO # 0.6 10*3/uL (0.1-1.0); MONO % 6.1 % (3.0-9.0); NEUT # 7.8 10*3/uL (2.3-7.9); NEUT % 81.6 % (47.0-73.0); NUCLEATED RED BLOOD CELL 0.3 % (0.0-0.0); PLATELET COUNT AUTOMATED 187 10*3/uL (130-400); RED BLOOD COUNT 3.43 10*6/uL (4.10-5.10); RED CELL DISTRI WIDTH 15.5 % (0-14.5); WHITE BLOOD COUNT 9.6 10*3/uL (4.8-10.8)
[2021-02-18 06:32] LABS: MEAN CELL VOLUME 100.6 fl (81.0-99.0)
== END 2021-02-18 08:25 | disposition short-term general hospital (02) | DRG 194 ==
LOC: ED 20:57 → EDHOLD 02-17 00:13 → 5E 02-17 00:13
PROVIDERS: Physician Assistant; ADMIT Internal Medicine; ATTEND Internal Medicine
DX: I13.0 Hypertensive heart and chronic kidney disease with heart failure and stage 1 through stage 4 chronic kidney disease, or unspecified chronic kidney disease (principal); I50.31 Acute diastolic (congestive) heart failure; E11.65 Type 2 diabetes mellitus with hyperglycemia; N18.4 Chronic kidney disease, stage 4 (severe); E11.22 Type 2 diabetes mellitus with diabetic chronic kidney disease; F41.9 Anxiety disorder, unspecified; J44.9 Chronic obstructive pulmonary disease, unspecified; D68.51 Activated protein C resistance; E66.2 Morbid (severe) obesity with alveolar hypoventilation; G89.4 Chronic pain syndrome; I34.0 Nonrheumatic mitral (valve) insufficiency; I27.20 Pulmonary hypertension, unspecified; N39.0 Urinary tract infection, site not specified; R39.198 Other difficulties with micturition; Z79.4 Long term (current) use of insulin; Z68.44 Body mass index [BMI] 60.0-69.9, adult; Z79.01 Long term (current) use of anticoagulants; Z86.711 Personal history of pulmonary embolism; Z87.440 Personal history of urinary (tract) infections; Z88.2 Allergy status to sulfonamides; Z91.048 Other nonmedicinal substance allergy status; Z88.1 Allergy status to other antibiotic agents; Z90.49 Acquired absence of other specified parts of digestive tract; Z98.891 History of uterine scar from previous surgery; Z83.3 Family history of diabetes mellitus; Z84.1 Family history of disorders of kidney and ureter; Z82.49 Family history of ischemic heart disease and other diseases of the circulatory system; Z80.8 Family history of malignant neoplasm of other organs or systems; Z98.51 Tubal ligation status; Z98.42 Cataract extraction status, left eye; Z98.41 Cataract extraction status, right eye; Z79.891 Long term (current) use of opiate analgesic

== ENCOUNTER 2021-06-19 16:03 | Inpatient (IN) | payer MEDICAID ==
[~2021-06-19] VITALS: Ht 175.2 cm; Wt 174.6 kg
[~2021-06-19 16:03] MED LIST changes: +HUMULIN 70100 UNIT/1 SC; +NOVOLOG MI100 UNIT/2 SC
[2021-06-19 17:41] VITALS: BP 153/54
[2021-06-19 20:27] LABS: BASO % 0.4 % (0.0-1.0); EOS # 0.1 10*3/uL (0.0-0.4); EOS % 1.3 % (1.0-4.0); HEMATOCRIT 33.6 % (37.0-47.0); LYMPH # 1.2 10*3/uL (1.3-4.4); LYMPH % 21.4 % (27.0-41.0); MEAN CELL VOLUME 95.5 fl (81.0-99.0); MEAN CORPUSCULAR HGB 29.3 pg (27.0-31.0); MEAN CORPUSCULAR HGB CONC 30.7 g/dl (33.0-37.0); MEAN PLATELET VOLUME 8.7 fl (9.6-12.3); MONO # 0.8 10*3/uL (0.1-1.0); MONO % 14.3 % (3.0-9.0); NEUT # 3.4 10*3/uL (2.3-7.9); NEUT % 61.7 % (47.0-73.0); PLATELET COUNT AUTOMATED 182 10*3/uL (130-400); RED BLOOD COUNT 3.52 10*6/uL (4.10-5.10); RED CELL DISTRI WIDTH 15.2 % (0-14.5); WHITE BLOOD COUNT 5.5 10*3/uL (4.8-10.8)
[2021-06-19 20:39] LABS: INTERNATIONAL NORM RATIO 1.7 (2.0-3.5)
[2021-06-19 20:44] LABS: CREATININE 2.61 mg/dL (0.55-1.02); POTASSIUM 5.2 mmol/L (3.5-5.1); TOTAL PROTEIN 7.9 gm/dL (6.4-8.2)
[2021-06-20 11:05] VITALS: BP 122/84
[2021-06-20 14:00] VITALS: BP 124/46
[2021-06-20 18:02] VITALS: BP 126/54
[2021-06-20 21:52] VITALS: BP 126/75
[2021-06-20 23:25] VITALS: BP 124/45
[2021-06-20] MEDS ORDERED: AUTOJECT 21 EACH SQ (23:56)
[2021-06-20] MEDS ORDERED: HUMULIN R100 UNIT/1 SC (23:57)
[2021-06-21 07:44] LABS: HEMATOCRIT 30.3 % (37.0-47.0); LYMPH # 0.7 10*3/uL (1.3-4.4); MEAN CELL VOLUME 96.5 fl (81.0-99.0); MEAN CORPUSCULAR HGB 29.6 pg (27.0-31.0); MEAN CORPUSCULAR HGB CONC 30.7 g/dl (33.0-37.0); MEAN PLATELET VOLUME 9.2 fl (9.6-12.3); MONO # 0.5 10*3/uL (0.1-1.0); MONO % 11.3 % (3.0-9.0); NEUT # 3.2 10*3/uL (2.3-7.9); NEUT % 71.6 % (47.0-73.0); PLATELET COUNT AUTOMATED 155 10*3/uL (130-400); RED BLOOD COUNT 3.14 10*6/uL (4.10-5.10); RED CELL DISTRI WIDTH 14.9 % (0-14.5); WHITE BLOOD COUNT 4.5 10*3/uL (4.8-10.8)
[2021-06-21 08:00] VITALS: BP 129/43
[2021-06-21 08:02] LABS: ALBUMIN 2.6 gm/dl (3.1-4.5); POTASSIUM 4.8 mmol/L (3.5-5.1); TOTAL PROTEIN 6.9 gm/dL (6.4-8.2)
[2021-06-21 08:03] LABS: CREATININE 2.66 mg/dL (0.55-1.02)
[2021-06-21 16:00] VITALS: BP 125/41
[2021-06-21 20:00] VITALS: BP 146/75
[2021-06-22] VITALS: BP 135/50
[2021-06-22 06:10] LABS: HEMATOCRIT 30.3 % (37.0-47.0); LYMPH # 0.9 10*3/uL (1.3-4.4); LYMPH % 8.4 % (27.0-41.0); MEAN CORPUSCULAR HGB 29.2 pg (27.0-31.0); MEAN CORPUSCULAR HGB CONC 30.7 g/dl (33.0-37.0); MEAN PLATELET VOLUME 9.7 fl (9.6-12.3); MONO # 0.6 10*3/uL (0.1-1.0); NEUT # 8.6 10*3/uL (2.3-7.9); NEUT % 85.1 % (47.0-73.0); PLATELET COUNT AUTOMATED 158 10*3/uL (130-400); RED BLOOD COUNT 3.19 10*6/uL (4.10-5.10); RED CELL DISTRI WIDTH 14.9 % (0-14.5); WHITE BLOOD COUNT 10.1 10*3/uL (4.8-10.8)
[2021-06-22 06:22] LABS: ALBUMIN 2.7 gm/dl (3.1-4.5); CREATININE 2.33 mg/dL (0.55-1.02); POTASSIUM 4.6 mmol/L (3.5-5.1); TOTAL PROTEIN 6.9 gm/dL (6.4-8.2)
[2021-06-22 06:54] LABS: INTERNATIONAL NORM RATIO 2.5 (2.0-3.5)
[2021-06-22 08:00] VITALS: BP 147/51
[2021-06-22 12:00] VITALS: BP 141/45
[2021-06-22] MEDS ORDERED: DECADRON6 M1 PO (13:04)
[2021-06-22] MEDS ORDERED: MUCINEX1200 M1 PO (13:05)
== END 2021-06-22 16:00 | disposition home or self-care (01) | DRG 137 ==
LOC: ED 16:03 → EDHOLD 22:41 → 4E 22:41
PROVIDERS: Hospitalist; Internal Medicine Critical Care Medicine; ADMIT Internal Medicine; ATTEND Internal Medicine
PROC: XW033E5 Introduction of Remdesivir Anti-infective into Peripheral Vein, Percutaneous Approach, New Technology Group 5 (ICD-10-PCS; principal; 2021-06-20)
DX: U07.1 COVID-19 (principal); J12.82 Pneumonia due to coronavirus disease 2019; J96.21 Acute and chronic respiratory failure with hypoxia; N18.9 Chronic kidney disease, unspecified; K21.00 Gastro-esophageal reflux disease with esophagitis, without bleeding; E11.22 Type 2 diabetes mellitus with diabetic chronic kidney disease; D68.2 Hereditary deficiency of other clotting factors; I50.32 Chronic diastolic (congestive) heart failure; E66.2 Morbid (severe) obesity with alveolar hypoventilation; G89.29 Other chronic pain; M54.50 Low back pain, unspecified; T38.0X5A Adverse effect of glucocorticoids and synthetic analogues, initial encounter; E11.65 Type 2 diabetes mellitus with hyperglycemia; J44.0 Chronic obstructive pulmonary disease with (acute) lower respiratory infection; N13.9 Obstructive and reflux uropathy, unspecified; E44.0 Moderate protein-calorie malnutrition; J44.9 Chronic obstructive pulmonary disease, unspecified; Z68.43 Body mass index [BMI] 50.0-59.9, adult; Z88.2 Allergy status to sulfonamides; Z88.1 Allergy status to other antibiotic agents; Z88.8 Allergy status to other drugs, medicaments and biological substances; Y92.89 Other specified places as the place of occurrence of the external cause

== ENCOUNTER 2021-06-25 12:45 | Inpatient (IN) | payer MEDICAID ==
[~2021-06-25] VITALS: Wt 158.9 kg
[~2021-06-25 12:45] MED LIST changes: +AUTOJECT 21 EACH SQ; +DECADRON6 M1 PO; +HUMULIN R100 UNIT/1 SC; +MUCINEX1200 M1 PO
[2021-06-25 13:02] VITALS: BP 157/57
[2021-06-25 18:59] LABS: BASO % 0.2 % (0.0-1.0); HEMATOCRIT 37.3 % (37.0-47.0); LYMPH # 0.4 10*3/uL (1.3-4.4); LYMPH % 6.3 % (27.0-41.0); MEAN CELL VOLUME 94.4 fl (81.0-99.0); MEAN CORPUSCULAR HGB 29.1 pg (27.0-31.0); MEAN CORPUSCULAR HGB CONC 30.8 g/dl (33.0-37.0); MEAN PLATELET VOLUME 9.2 fl (9.6-12.3); MONO # 0.3 10*3/uL (0.1-1.0); MONO % 4.5 % (3.0-9.0); NEUT # 5.4 10*3/uL (2.3-7.9); NEUT % 87.4 % (47.0-73.0); PLATELET COUNT AUTOMATED 175 10*3/uL (130-400); RED BLOOD COUNT 3.95 10*6/uL (4.10-5.10); RED CELL DISTRI WIDTH 14.8 % (0-14.5); WHITE BLOOD COUNT 6.2 10*3/uL (4.8-10.8)
[2021-06-25 19:18] LABS: ALKALINE PHOSPHATASE 98 U/L (45-117); BUN 70 mg/dl (7-24); CHLORIDE 102 mmol/L (98-107); CREATININE 2.18 mg/dL (0.55-1.02); POTASSIUM 4.9 mmol/L (3.5-5.1); SGOT/AST 53 IU/L (3-35); SGPT/ALT 80 U/L (12-78); SODIUM 136 mmol/L (136-145); TOTAL PROTEIN 7.8 gm/dL (6.4-8.2)
[2021-06-25 19:25] LABS: TROPONIN I < 0.015 ng/ml (<0.045)
[2021-06-25 20:02] VITALS: BP 142/45
[2021-06-25 23:15] VITALS: BP 154/59
[2021-06-26 06:26] LABS: POTASSIUM 4.3 mmol/L (3.5-5.1)
[2021-06-26 06:27] LABS: CREATININE 2.03 mg/dL (0.55-1.02)
[2021-06-26 08:00] VITALS: BP 130/76
[2021-06-26 10:08] LABS: INTERNATIONAL NORM RATIO 4.4 (2.0-3.5)
[2021-06-26 12:00] VITALS: BP 93/58
[2021-06-26 16:00] VITALS: BP 100/51
[2021-06-26 20:00] VITALS: BP 121/63
[2021-06-27] VITALS: BP 123/37
[2021-06-27 06:23] LABS: HEMATOCRIT 34.1 % (37.0-47.0); LYMPH # 0.5 10*3/uL (1.3-4.4); LYMPH % 7.1 % (27.0-41.0); MEAN CELL VOLUME 94.2 fl (81.0-99.0); MEAN CORPUSCULAR HGB CONC 30.8 g/dl (33.0-37.0); MEAN PLATELET VOLUME 9.6 fl (9.6-12.3); MONO # 0.4 10*3/uL (0.1-1.0); NEUT # 6.4 10*3/uL (2.3-7.9); NEUT % 86.5 % (47.0-73.0); PLATELET COUNT AUTOMATED 190 10*3/uL (130-400); RED BLOOD COUNT 3.62 10*6/uL (4.10-5.10); RED CELL DISTRI WIDTH 14.8 % (0-14.5); WHITE BLOOD COUNT 7.4 10*3/uL (4.8-10.8)
[2021-06-27 06:39] LABS: ALBUMIN 2.5 gm/dl (3.1-4.5); CREATININE 2.41 mg/dL (0.55-1.02); POTASSIUM 4.5 mmol/L (3.5-5.1)
[2021-06-27 08:00] VITALS: BP 152/58
[2021-06-27 12:00] VITALS: BP 142/50
[2021-06-27 16:44] VITALS: BP 133/49
[2021-06-27 20:00] VITALS: BP 127/42
[2021-06-28] VITALS: BP 125/40
[2021-06-28 06:18] LABS: ALBUMIN 2.4 gm/dl (3.1-4.5); CREATININE 2.36 mg/dL (0.55-1.02); POTASSIUM 4.2 mmol/L (3.5-5.1)
[2021-06-28 06:20] LABS: TOTAL PROTEIN 6.8 gm/dL (6.4-8.2)
[2021-06-28 08:00] VITALS: BP 154/58
[2021-06-28 11:49] VITALS: BP 141/53
[2021-06-28 16:00] VITALS: BP 148/62
[2021-06-28 20:00] VITALS: BP 150/40
[2021-06-29] VITALS: BP 153/48
[2021-06-29 05:55] LABS: ALBUMIN 2.3 gm/dl (3.1-4.5); CREATININE 2.05 mg/dL (0.55-1.02); POTASSIUM 4.2 mmol/L (3.5-5.1); TOTAL PROTEIN 6.5 gm/dL (6.4-8.2)
[2021-06-29 06:37] LABS: INTERNATIONAL NORM RATIO 4.9 (2.0-3.5)
[2021-06-29 08:00] VITALS: BP 131/33
[2021-06-29 12:00] VITALS: BP 131/44
[2021-06-29 16:00] VITALS: BP 145/41
[2021-06-29 20:00] VITALS: BP 127/33
[2021-06-30] VITALS: BP 143/34
[2021-06-30 05:40] LABS: BILIRUBIN Negative (Negative); BLOOD 3+ (Negative); CLARITY Cloudy (Clear); COLOR Yellow (Yellow); GLUCOSE 1+ (Negative); KETONE Negative (Negative); LEUKO ESTERASE 1+ (Negative); NITRITE Negative (Negative); SPECIFIC GRAVITY 1.015 (1.001-1.030); UROBILINOGEN 0.2 E.U./dl (0.0-1.0)
[2021-06-30 06:16] LABS: ALBUMIN 2.3 gm/dl (3.1-4.5); CREATININE 2.24 mg/dL (0.55-1.02); POTASSIUM 4.2 mmol/L (3.5-5.1); TOTAL PROTEIN 6.8 gm/dL (6.4-8.2)
[2021-06-30 06:18] LABS: INTERNATIONAL NORM RATIO 3.7 (2.0-3.5)
[2021-06-30 08:00] VITALS: BP 152/54
[2021-06-30 08:11] LABS: BACTERIA 2+; RBC TNTC rbc/hpf (0-2); RED BLOOD CELL CAST 0-2; WBC 16-20 wbc/hpf (0-5)
[2021-06-30 10:00] LABS: FERRITIN 922.3 ng/mL (10.0-291.0)
[2021-06-30 10:01] LABS: PTH INTACT 132.8 pg/mL (18.5-88.0)
[2021-06-30 12:00] VITALS: BP 123/49
[2021-06-30 17:00] VITALS: BP 151/63
[2021-06-30 20:00] VITALS: BP 154/85
[2021-07-01] VITALS: BP 156/45
[2021-07-01 06:04] LABS: ALBUMIN 2.3 gm/dl (3.1-4.5); CREATININE 2.01 mg/dL (0.55-1.02); POTASSIUM 4.2 mmol/L (3.5-5.1); TOTAL PROTEIN 6.7 gm/dL (6.4-8.2)
[2021-07-01 06:10] LABS: INTERNATIONAL NORM RATIO 2.8 (2.0-3.5)
[2021-07-01 08:00] VITALS: BP 127/78
[2021-07-01 11:07] LABS: CREATININE,URINE 62.4 mg/dL (Not Estab.)
[2021-07-01 12:00] VITALS: BP 159/56
[2021-07-01 16:00] VITALS: BP 125/46
[2021-07-01 20:00] VITALS: BP 167/40
[2021-07-02] VITALS: BP 179/60
[2021-07-02 06:18] LABS: BASO % 0.1 % (0.0-1.0); HEMATOCRIT 33.2 % (37.0-47.0); LYMPH # 0.7 10*3/uL (1.3-4.4); LYMPH % 7.4 % (27.0-41.0); MEAN CELL VOLUME 95.1 fl (81.0-99.0); MEAN CORPUSCULAR HGB 29.2 pg (27.0-31.0); MEAN CORPUSCULAR HGB CONC 30.7 g/dl (33.0-37.0); MEAN PLATELET VOLUME 9.6 fl (9.6-12.3); MONO # 0.6 10*3/uL (0.1-1.0); MONO % 6.3 % (3.0-9.0); NEUT # 7.5 10*3/uL (2.3-7.9); NEUT % 84.5 % (47.0-73.0); PLATELET COUNT AUTOMATED 212 10*3/uL (130-400); RED BLOOD COUNT 3.49 10*6/uL (4.10-5.10); WHITE BLOOD COUNT 8.9 10*3/uL (4.8-10.8)
[2021-07-02 06:31] LABS: ALBUMIN 2.4 gm/dl (3.1-4.5); CREATININE 2.04 mg/dL (0.55-1.02); POTASSIUM 4.6 mmol/L (3.5-5.1); TOTAL PROTEIN 6.4 gm/dL (6.4-8.2)
[2021-07-02 08:00] VITALS: BP 122/41
[2021-07-02 12:00] VITALS: BP 132/44
[2021-07-02 16:00] VITALS: BP 123/41
[2021-07-02 20:00] VITALS: BP 150/45
[2021-07-03] VITALS: BP 145/41
[2021-07-03 06:21] LABS: INTERNATIONAL NORM RATIO 1.8 (2.0-3.5)
[2021-07-03 08:00] VITALS: BP 152/47
[2021-07-03 12:00] VITALS: BP 122/47
[2021-07-03 16:00] VITALS: BP 144/48
[2021-07-03 20:00] VITALS: BP 133/30
[2021-07-04] VITALS: BP 144/44
[2021-07-04 06:18] LABS: BASO % 0.1 % (0.0-1.0); HEMATOCRIT 33.2 % (37.0-47.0); LYMPH # 0.6 10*3/uL (1.3-4.4); LYMPH % 7.3 % (27.0-41.0); MEAN CELL VOLUME 94.6 fl (81.0-99.0); MEAN CORPUSCULAR HGB 29.6 pg (27.0-31.0); MEAN CORPUSCULAR HGB CONC 31.3 g/dl (33.0-37.0); MEAN PLATELET VOLUME 9.9 fl (9.6-12.3); MONO # 0.5 10*3/uL (0.1-1.0); MONO % 6.1 % (3.0-9.0); NEUT # 7.1 10*3/uL (2.3-7.9); NEUT % 85.3 % (47.0-73.0); PLATELET COUNT AUTOMATED 191 10*3/uL (130-400); RED BLOOD COUNT 3.51 10*6/uL (4.10-5.10); RED CELL DISTRI WIDTH 14.6 % (0-14.5); WHITE BLOOD COUNT 8.4 10*3/uL (4.8-10.8)
[2021-07-04 06:28] LABS: CREATININE 1.65 mg/dL (0.55-1.02); POTASSIUM 4.8 mmol/L (3.5-5.1)
[2021-07-04 08:00] VITALS: BP 128/49
[2021-07-04 12:00] VITALS: BP 150/64
[2021-07-04 16:00] VITALS: BP 123/47
[2021-07-04 20:00] VITALS: BP 119/57
[2021-07-05] VITALS: BP 153/39
[2021-07-05 08:00] VITALS: BP 155/56
[2021-07-05 12:00] VITALS: BP 128/46
[2021-07-05 16:00] VITALS: BP 150/60
[2021-07-05 20:00] VITALS: BP 148/86
[2021-07-06] VITALS: BP 160/46
[2021-07-06 06:04] LABS: CREATININE 1.52 mg/dL (0.55-1.02); POTASSIUM 4.7 mmol/L (3.5-5.1)
[2021-07-06 06:08] LABS: BASO % 0.1 % (0.0-1.0); HEMATOCRIT 33.9 % (37.0-47.0); LYMPH # 0.7 10*3/uL (1.3-4.4); LYMPH % 8.3 % (27.0-41.0); MEAN CELL VOLUME 93.6 fl (81.0-99.0); MEAN CORPUSCULAR HGB 29.6 pg (27.0-31.0); MEAN CORPUSCULAR HGB CONC 31.6 g/dl (33.0-37.0); MEAN PLATELET VOLUME 9.7 fl (9.6-12.3); MONO # 0.6 10*3/uL (0.1-1.0); MONO % 7.2 % (3.0-9.0); NEUT # 6.9 10*3/uL (2.3-7.9); NEUT % 83.4 % (47.0-73.0); PLATELET COUNT AUTOMATED 200 10*3/uL (130-400); RED BLOOD COUNT 3.62 10*6/uL (4.10-5.10); RED CELL DISTRI WIDTH 14.5 % (0-14.5); WHITE BLOOD COUNT 8.3 10*3/uL (4.8-10.8)
[2021-07-06 08:00] VITALS: BP 142/40
[2021-07-06] MEDS ORDERED: HUMULIN R100 UNIT/1 SC (08:52)
[2021-07-06] MEDS ORDERED: Lantus SC (08:52)
[2021-07-06] MEDS ORDERED: SILDENAFIL20 M1 PO (08:52)
[2021-07-06 12:00] VITALS: BP 146/42
[2021-07-06 15:37] VITALS: BP 152/50
[2021-07-06] MEDS ORDERED: VITAMIN D3125 MCG PO (16:20)
[2021-07-06 20:00] VITALS: BP 124/58
[2021-07-07] VITALS: BP 142/36
[2021-07-07 06:30] LABS: INTERNATIONAL NORM RATIO 3.5 (2.0-3.5)
[2021-07-07 08:00] VITALS: BP 126/86
== END 2021-07-07 13:00 | disposition home or self-care (01) | DRG 137 ==
LOC: ED 12:45 → 4E 20:38 → EDHOLD 20:38 → 4E 22:16
PROVIDERS: Emergency Medicine; Internal Medicine; Internal Medicine Critical Care Medicine; Internal Medicine Nephrology; ADMIT Internal Medicine; ATTEND Internal Medicine
PROC: 5A0935A Assistance with Respiratory Ventilation, Less than 24 Consecutive Hours, High Flow/Velocity Cannula (ICD-10-PCS; principal; 2021-06-27)
PROC: 5A0935A Assistance with Respiratory Ventilation, Less than 24 Consecutive Hours, High Flow/Velocity Cannula (ICD-10-PCS; 2021-06-28)
PROC: 5A0935A Assistance with Respiratory Ventilation, Less than 24 Consecutive Hours, High Flow/Velocity Cannula (ICD-10-PCS; 2021-06-29)
PROC: 5A09457 Assistance with Respiratory Ventilation, 24-96 Consecutive Hours, Continuous Positive Airway Pressure (ICD-10-PCS; 2021-06-29)
PROC: 5A0935A Assistance with Respiratory Ventilation, Less than 24 Consecutive Hours, High Flow/Velocity Cannula (ICD-10-PCS; 2021-07-01)
PROC: 5A09357 Assistance with Respiratory Ventilation, Less than 24 Consecutive Hours, Continuous Positive Airway Pressure (ICD-10-PCS; 2021-07-01)
PROC: 5A09357 Assistance with Respiratory Ventilation, Less than 24 Consecutive Hours, Continuous Positive Airway Pressure (ICD-10-PCS; 2021-07-02)
PROC: 5A0935A Assistance with Respiratory Ventilation, Less than 24 Consecutive Hours, High Flow/Velocity Cannula (ICD-10-PCS; 2021-07-03)
PROC: 5A09357 Assistance with Respiratory Ventilation, Less than 24 Consecutive Hours, Continuous Positive Airway Pressure (ICD-10-PCS; 2021-07-03)
PROC: 5A09357 Assistance with Respiratory Ventilation, Less than 24 Consecutive Hours, Continuous Positive Airway Pressure (ICD-10-PCS; 2021-07-04)
PROC: 5A09357 Assistance with Respiratory Ventilation, Less than 24 Consecutive Hours, Continuous Positive Airway Pressure (ICD-10-PCS; 2021-07-05)
PROC: 5A09357 Assistance with Respiratory Ventilation, Less than 24 Consecutive Hours, Continuous Positive Airway Pressure (ICD-10-PCS; 2021-07-06)
PROC: 5A09357 Assistance with Respiratory Ventilation, Less than 24 Consecutive Hours, Continuous Positive Airway Pressure (ICD-10-PCS; 2021-07-07)
DX: U07.1 COVID-19 (principal); J15.9 Unspecified bacterial pneumonia; J12.82 Pneumonia due to coronavirus disease 2019; N13.30 Unspecified hydronephrosis; N17.9 Acute kidney failure, unspecified; J96.22 Acute and chronic respiratory failure with hypercapnia; E11.65 Type 2 diabetes mellitus with hyperglycemia; E43 Unspecified severe protein-calorie malnutrition; E11.22 Type 2 diabetes mellitus with diabetic chronic kidney disease; J96.21 Acute and chronic respiratory failure with hypoxia; N18.4 Chronic kidney disease, stage 4 (severe); I27.20 Pulmonary hypertension, unspecified; D68.51 Activated protein C resistance; E88.09 Other disorders of plasma-protein metabolism, not elsewhere classified; I13.0 Hypertensive heart and chronic kidney disease with heart failure and stage 1 through stage 4 chronic kidney disease, or unspecified chronic kidney disease; D50.9 Iron deficiency anemia, unspecified; D63.1 Anemia in chronic kidney disease; R62.7 Adult failure to thrive; E66.01 Morbid (severe) obesity due to excess calories; Z88.1 Allergy status to other antibiotic agents; Z88.2 Allergy status to sulfonamides; Z68.43 Body mass index [BMI] 50.0-59.9, adult; Z79.01 Long term (current) use of anticoagulants; Z88.8 Allergy status to other drugs, medicaments and biological substances; I50.31 Acute diastolic (congestive) heart failure

== ENCOUNTER 2022-06-24 14:10 | Emergency (ER) | payer OTHER ==
[~2022-06-24] VITALS: Ht 175.2 cm; Wt 142.9 kg
[~2022-06-24 14:10] MED LIST changes: +Lantus SC; +SILDENAFIL20 M1 PO; +VITAMIN D3125 MCG PO
[2022-06-24 14:15] VITALS: BP 129/39
[2022-06-24 15:46] LABS: HEMATOCRIT 27.9 % (37.0-47.0); MEAN CELL VOLUME 93.6 fl (81.0-99.0); MEAN CORPUSCULAR HGB 29.9 pg (27.0-31.0); MEAN CORPUSCULAR HGB CONC 31.9 g/dl (33.0-37.0); MEAN PLATELET VOLUME 8.8 fl (9.6-12.3); PLATELET COUNT AUTOMATED 339 10*3/uL (130-400); RED BLOOD COUNT 2.98 10*6/uL (4.10-5.10); RED CELL DISTRI WIDTH 13.4 % (0-14.5); WHITE BLOOD COUNT 30.4 10*3/uL (4.8-10.8)
[2022-06-24 15:55] LABS: MANUAL DIFF REFLEX YES
[2022-06-24 16:04] LABS: ACT PARTIAL THROMBO TIME 41.6 SECONDS (20.0-32.1); INTERNATIONAL NORM RATIO 2.7 (2.0-3.5)
[2022-06-24 16:06] LABS: CREATININE 4.62 mg/dL (0.55-1.02); POTASSIUM 4.5 mmol/L (3.5-5.1); TOTAL PROTEIN 6.9 gm/dL (6.4-8.2)
[2022-06-24 16:30] LABS: TOTAL CELLS COUNTED 100 #CELLS
[2022-06-24 16:32] LABS: PLATELET SUFFICIENCY NORMAL (NORMAL); POLYCHROMASIA SLIGHT
[2022-06-24 16:34] LABS: BURR CELLS FEW
[2022-06-24 17:24] LABS: BILIRUBIN Negative (Negative); BLOOD 3+ (Negative); CLARITY Turbid (Clear); COLOR Dark Yellow (Yellow); GLUCOSE 2+ (Negative); KETONE Trace (Negative); LEUKO ESTERASE 3+ (Negative); NITRITE Negative (Negative); PH 5.5 (4.5-8.0)
[2022-06-24 18:23] LABS: WBC TNTC wbc/hpf (0-5)
== END 2022-06-24 21:57 | disposition short-term general hospital (02) ==
LOC: ED 14:10
PROVIDERS: Emergency Medicine
DX: A41.9 Sepsis, unspecified organism (principal); N12 Tubulo-interstitial nephritis, not specified as acute or chronic; N39.0 Urinary tract infection, site not specified; R10.84 Generalized abdominal pain; Z90.49 Acquired absence of other specified parts of digestive tract; Z98.890 Other specified postprocedural states; Z98.51 Tubal ligation status; Z79.899 Other long term (current) drug therapy; Z88.2 Allergy status to sulfonamides; Z88.1 Allergy status to other antibiotic agents

== ENCOUNTER 2022-08-30 12:49 | Inpatient (IN) | payer OTHER ==
[~2022-08-30] VITALS: Ht 175.3 cm; Wt 127.6 kg
[2022-08-30 13:03] VITALS: BP 132/42
[2022-08-30 13:49] LABS: BASO # 0.1 10*3/uL (0.0-0.1); EOS # 0.6 10*3/uL (0.0-0.4); EOS % 7.3 % (1.0-4.0); HEMATOCRIT 25.8 % (37.0-47.0); LYMPH # 1.3 10*3/uL (1.3-4.4); MEAN CELL VOLUME 97.4 fl (81.0-99.0); MEAN CORPUSCULAR HGB 28.7 pg (27.0-31.0); MEAN CORPUSCULAR HGB CONC 29.5 g/dl (33.0-37.0); MEAN PLATELET VOLUME 9.3 fl (9.6-12.3); MONO # 0.6 10*3/uL (0.1-1.0); MONO % 7.5 % (3.0-9.0); NEUT # 5.2 10*3/uL (2.3-7.9); NEUT % 66.9 % (47.0-73.0); PLATELET COUNT AUTOMATED 200 10*3/uL (130-400); RED BLOOD COUNT 2.65 10*6/uL (4.10-5.10); RED CELL DISTRI WIDTH 17.9 % (0-14.5); WHITE BLOOD COUNT 7.7 10*3/uL (4.8-10.8)
[2022-08-30 14:06] LABS: CREATININE 4.42 mg/dL (0.55-1.02); TOTAL PROTEIN 6.7 gm/dL (6.0-8.0)
[2022-08-30 19:40] VITALS: BP 129/50
[2022-08-31] VITALS (7 sets, daily range): BP systolic 103–138; BP diastolic 28–79
[2022-08-31] MEDS ORDERED: WARFARIN SODIUM3 MG PO (15:13)
[2022-08-31] MEDS ORDERED: LEVOTHYROXINE75 MCG PO (15:14)
[2022-09-01] VITALS (7 sets, daily range): BP systolic 99–136; BP diastolic 31–52
[2022-09-01 08:27] LABS: BASO # 0.1 10*3/uL (0.0-0.1); EOS # 0.6 10*3/uL (0.0-0.4); EOS % 8.9 % (1.0-4.0); HEMATOCRIT 23.1 % (37.0-47.0); LYMPH # 1.4 10*3/uL (1.3-4.4); LYMPH % 20.6 % (27.0-41.0); MEAN CELL VOLUME 95.9 fl (81.0-99.0); MEAN CORPUSCULAR HGB CONC 30.3 g/dl (33.0-37.0); MEAN PLATELET VOLUME 8.6 fl (9.6-12.3); MONO # 0.5 10*3/uL (0.1-1.0); MONO % 7.9 % (3.0-9.0); NEUT # 4.1 10*3/uL (2.3-7.9); NEUT % 61.3 % (47.0-73.0); PLATELET COUNT AUTOMATED 193 10*3/uL (130-400); RED BLOOD COUNT 2.41 10*6/uL (4.10-5.10); RED CELL DISTRI WIDTH 17.5 % (0-14.5); WHITE BLOOD COUNT 6.7 10*3/uL (4.8-10.8)
[2022-09-01 08:42] LABS: CREATININE 6.06 mg/dL (0.55-1.02)
[2022-09-02 08:00] VITALS: BP 106/30
[2022-09-02 12:00] VITALS: BP 136/32
[2022-09-02 16:00] VITALS: BP 122/34
[2022-09-02 20:00] VITALS: BP 118/52
[2022-09-03] VITALS (7 sets, daily range): BP systolic 101–147; BP diastolic 32–56
[2022-09-03] MEDS ORDERED: LEVOFLOXACIN500 MG PO (00:51)
[2022-09-03 06:46] LABS: CREATININE 4.42 mg/dL (0.55-1.02); INTERNATIONAL NORM RATIO 1.4 (2.0-3.5); POTASSIUM 4.2 mmol/L (3.4-5.1); VANCOMYCIN RANDOM 22.4 ug/mL
[2022-09-03 08:12] LABS: BASO # 0.1 10*3/uL (0.0-0.1); BASO % 0.8 % (0.0-1.0); EOS # 1.1 10*3/uL (0.0-0.4); EOS % 14.7 % (1.0-4.0); HEMATOCRIT 25.6 % (37.0-47.0); LYMPH # 1.5 10*3/uL (1.3-4.4); LYMPH % 20.3 % (27.0-41.0); MEAN CORPUSCULAR HGB 28.8 pg (27.0-31.0); MEAN CORPUSCULAR HGB CONC 29.7 g/dl (33.0-37.0); MEAN PLATELET VOLUME 9.3 fl (9.6-12.3); MONO # 0.7 10*3/uL (0.1-1.0); MONO % 10.1 % (3.0-9.0); NEUT # 3.9 10*3/uL (2.3-7.9); NEUT % 53.7 % (47.0-73.0); PLATELET COUNT AUTOMATED 205 10*3/uL (130-400); RED BLOOD COUNT 2.64 10*6/uL (4.10-5.10); RED CELL DISTRI WIDTH 17.5 % (0-14.5); WHITE BLOOD COUNT 7.2 10*3/uL (4.8-10.8)
== END 2022-09-03 18:40 | disposition short-term general hospital (02) | DRG 380 ==
LOC: ED 12:49 → 5E 16:00 → EDHOLD 16:00 → 5E 08-31 13:01
PROVIDERS: Internal Medicine Nephrology; Nurse Practitioner Family; ADMIT Internal Medicine; ATTEND Internal Medicine
PROC: 30233N1 Transfusion of Nonautologous Red Blood Cells into Peripheral Vein, Percutaneous Approach (ICD-10-PCS; principal; 2022-09-01)
PROC: 5A1D70Z Performance of Urinary Filtration, Intermittent, Less than 6 Hours Per Day (ICD-10-PCS; 2022-09-01)
PROC: 5A1D70Z Performance of Urinary Filtration, Intermittent, Less than 6 Hours Per Day (ICD-10-PCS; 2022-09-03)
DX: L89.154 Pressure ulcer of sacral region, stage 4 (principal); N18.6 End stage renal disease; E66.01 Morbid (severe) obesity due to excess calories; G89.4 Chronic pain syndrome; J44.9 Chronic obstructive pulmonary disease, unspecified; E11.40 Type 2 diabetes mellitus with diabetic neuropathy, unspecified; F41.1 Generalized anxiety disorder; R62.7 Adult failure to thrive; K59.09 Other constipation; D64.9 Anemia, unspecified; E03.9 Hypothyroidism, unspecified; M54.50 Low back pain, unspecified; E11.22 Type 2 diabetes mellitus with diabetic chronic kidney disease; I12.0 Hypertensive chronic kidney disease with stage 5 chronic kidney disease or end stage renal disease; B96.1 Klebsiella pneumoniae [K. pneumoniae] as the cause of diseases classified elsewhere; Z99.2 Dependence on renal dialysis; Z86.16 Personal history of COVID-19; Z86.711 Personal history of pulmonary embolism; Z95.828 Presence of other vascular implants and grafts; Z88.2 Allergy status to sulfonamides; Z88.8 Allergy status to other drugs, medicaments and biological substances; Z88.3 Allergy status to other anti-infective agents; Z83.3 Family history of diabetes mellitus; Z84.1 Family history of disorders of kidney and ureter; Z68.43 Body mass index [BMI] 50.0-59.9, adult; Z91.14 Patient's other noncompliance with medication regimen; Z68.41 Body mass index [BMI] 40.0-44.9, adult; Z79.4 Long term (current) use of insulin

== ENCOUNTER → 2022-09-09 | Outpatient (CLI) | payer OTHER ==
[~2022-09-09] MED LIST changes: +HYDROCODONE-AC1 EAC1 PO; +LEVOFLOXACIN500 MG PO; +LEVOTHYROXINE75 MCG PO; +WARFARIN SODIUM3 MG PO
== END ==
LOC: WOUNDCARE 00:39
PROVIDERS: ATTEND Nurse Practitioner Family
DX: Z53.21 Procedure and treatment not carried out due to patient leaving prior to being seen by health care provider (principal)

== ENCOUNTER 2022-11-21 13:57 | Inpatient (IN) | payer OTHER ==
[~2022-11-21] VITALS: Ht 175.2 cm; Wt 130.6 kg
[2022-11-21 14:00] VITALS: BP 135/55
[2022-11-21 14:56] LABS: BASO # 0.1 10*3/uL (0.0-0.1); BASO % 0.7 % (0.0-1.0); EOS # 0.2 10*3/uL (0.0-0.4); EOS % 2.2 % (1.0-4.0); HEMATOCRIT 34.8 % (37.0-47.0); LYMPH # 1.9 10*3/uL (1.3-4.4); LYMPH % 17.9 % (27.0-41.0); MEAN CORPUSCULAR HGB 29.9 pg (27.0-31.0); MEAN CORPUSCULAR HGB CONC 30.5 g/dl (33.0-37.0); MEAN PLATELET VOLUME 8.9 fl (9.6-12.3); MONO # 0.5 10*3/uL (0.1-1.0); MONO % 5.2 % (3.0-9.0); NEUT # 7.7 10*3/uL (2.3-7.9); NEUT % 73.6 % (47.0-73.0); PLATELET COUNT AUTOMATED 185 10*3/uL (130-400); RED BLOOD COUNT 3.55 10*6/uL (4.10-5.10); RED CELL DISTRI WIDTH 15.9 % (0-14.5); WHITE BLOOD COUNT 10.5 10*3/uL (4.8-10.8)
[2022-11-21 15:09] LABS: ACT PARTIAL THROMBO TIME 36.9 SECONDS (20.0-32.1); INTERNATIONAL NORM RATIO 1.8 (2.0-3.5)
[2022-11-21 15:11] LABS: ALKALINE PHOSPHATASE 90 U/L (46-116); BUN 43 mg/dl (9-23); CHLORIDE 103 mmol/L (98-107); POTASSIUM 3.9 mmol/L (3.4-5.1); SGPT/ALT < 7 U/L (10-49); TOTAL PROTEIN 7.3 gm/dL (6.0-8.0)
[2022-11-21 16:00] VITALS: BP 126/60
[2022-11-21] MEDS ORDERED: CALCIUM ACETAT667 M3 PO (16:57)
[2022-11-21] MEDS ORDERED: DICLOFENAC SOD100 G1 T (17:00)
[2022-11-21] MEDS ORDERED: MIDODRINE HCL5 M1 PO (17:02)
[2022-11-21] MEDS ORDERED: MYCOLOG CREAM 115 GM T (17:03)
[2022-11-21] MEDS ORDERED: RENA-VITE1 TAB PO (17:04)
[2022-11-21] MEDS ORDERED: PROCRIT3000 UNIT/ IJ (17:11)
[2022-11-22] VITALS: BP 104/52
[2022-11-22 08:00] VITALS: BP 132/62
[2022-11-22 12:00] VITALS: BP 134/62
[2022-11-22 20:00] VITALS: BP 112/54
[2022-11-23 08:03] VITALS: BP 112/53
[2022-11-23 08:08] LABS: HBSAG Negative (Negative); HEP B CORE AB, IGM Negative (Negative); HEPATITIS C ANTIBODY Non Reactive (Non Reactive)
[2022-11-23] MEDS ORDERED: HUMULIN 70100 UNIT/1 SC (10:56)
[2022-11-23 11:39] VITALS: BP 101/56
== END 2022-11-23 14:10 | disposition home health service (06) | DRG 420 ==
LOC: ED 13:57 → 5E 15:07 → EDHOLD 15:07 → 5E 15:30
PROVIDERS: Internal Medicine; Internal Medicine Nephrology; ADMIT Internal Medicine; ATTEND Internal Medicine
DX: E11.65 Type 2 diabetes mellitus with hyperglycemia (principal); E11.22 Type 2 diabetes mellitus with diabetic chronic kidney disease; M47.896 Other spondylosis, lumbar region; J44.9 Chronic obstructive pulmonary disease, unspecified; G89.4 Chronic pain syndrome; F41.1 Generalized anxiety disorder; E03.9 Hypothyroidism, unspecified; L89.326 Pressure-induced deep tissue damage of left buttock; L89.316 Pressure-induced deep tissue damage of right buttock; E66.01 Morbid (severe) obesity due to excess calories; I12.0 Hypertensive chronic kidney disease with stage 5 chronic kidney disease or end stage renal disease; K21.00 Gastro-esophageal reflux disease with esophagitis, without bleeding; Z88.1 Allergy status to other antibiotic agents; Z83.3 Family history of diabetes mellitus; Z86.16 Personal history of COVID-19; Z88.2 Allergy status to sulfonamides; Z86.711 Personal history of pulmonary embolism; Z84.1 Family history of disorders of kidney and ureter; Z98.891 History of uterine scar from previous surgery; Z98.51 Tubal ligation status; Z68.41 Body mass index [BMI] 40.0-44.9, adult; Z99.2 Dependence on renal dialysis; N18.6 End stage renal disease

== ENCOUNTER → 2022-11-30 | Outpatient (CLI) | payer OTHER ==
[~2022-11-30] MED LIST changes: +CALCIUM ACETAT667 M3 PO; +DICLOFENAC SOD100 G1 T; +MIDODRINE HCL5 M1 PO; +MYCOLOG CREAM 115 GM T; +PROCRIT3000 UNIT/ IJ; +RENA-VITE1 TAB PO
== END ==
LOC: WOUNDCARE 01:19
PROVIDERS: ATTEND Nurse Practitioner Family
DX: Z53.21 Procedure and treatment not carried out due to patient leaving prior to being seen by health care provider (principal)

== ENCOUNTER 2022-12-08 15:17 | Emergency (ER) | payer OTHER ==
[~2022-12-08] VITALS: Ht 175.2 cm; Wt 131.5 kg
[2022-12-08 16:29] LABS: BASO % 0.4 % (0.0-1.0); EOS # 0.2 10*3/uL (0.0-0.4); EOS % 1.9 % (1.0-4.0); HEMATOCRIT 32.2 % (37.0-47.0); LYMPH % 22.3 % (27.0-41.0); MEAN CELL VOLUME 95.3 fl (81.0-99.0); MEAN CORPUSCULAR HGB 31.1 pg (27.0-31.0); MEAN CORPUSCULAR HGB CONC 32.6 g/dl (33.0-37.0); MEAN PLATELET VOLUME 8.7 fl (9.6-12.3); MONO # 0.5 10*3/uL (0.1-1.0); MONO % 5.4 % (3.0-9.0); NEUT # 6.3 10*3/uL (2.3-7.9); NEUT % 69.4 % (47.0-73.0); PLATELET COUNT AUTOMATED 211 10*3/uL (130-400); RED BLOOD COUNT 3.38 10*6/uL (4.10-5.10); RED CELL DISTRI WIDTH 14.9 % (0-14.5); WHITE BLOOD COUNT 9.1 10*3/uL (4.8-10.8)
[2022-12-08 16:39] LABS: ACT PARTIAL THROMBO TIME 35.8 SECONDS (20.0-32.1); INTERNATIONAL NORM RATIO 1.8 (2.0-3.5)
[2022-12-08 16:46] LABS: POTASSIUM 3.5 mmol/L (3.4-5.1); TOTAL PROTEIN 7.3 gm/dL (6.0-8.0)
[2022-12-08 21:27] VITALS: BP 108/41
[2022-12-09] MEDS ORDERED: VIBRAMYCIN100 MG PO (00:19)
== END 2022-12-09 01:23 ==
LOC: ED 15:17
PROVIDERS: Emergency Medicine
DX: J18.9 Pneumonia, unspecified organism (principal); D64.9 Anemia, unspecified; I95.9 Hypotension, unspecified; I13.2 Hypertensive heart and chronic kidney disease with heart failure and with stage 5 chronic kidney disease, or end stage renal disease; E11.22 Type 2 diabetes mellitus with diabetic chronic kidney disease; N18.6 End stage renal disease; I50.9 Heart failure, unspecified; Z99.2 Dependence on renal dialysis; Z88.2 Allergy status to sulfonamides; Z88.1 Allergy status to other antibiotic agents; Z79.899 Other long term (current) drug therapy; Z98.51 Tubal ligation status; Z90.49 Acquired absence of other specified parts of digestive tract; Z98.890 Other specified postprocedural states

== ENCOUNTER → 2023-02-24 | Outpatient (CLI) | payer OTHER ==
[~2023-02-24] MED LIST changes: +VIBRAMYCIN100 MG PO
== END | disposition home or self-care (01) ==
LOC: WOUNDCARE 02:45
PROVIDERS: ATTEND Nurse Practitioner Family
DX: L89.153 Pressure ulcer of sacral region, stage 3 (principal); E66.01 Morbid (severe) obesity due to excess calories; E11.22 Type 2 diabetes mellitus with diabetic chronic kidney disease; N18.6 End stage renal disease; I50.9 Heart failure, unspecified; E03.9 Hypothyroidism, unspecified; G47.30 Sleep apnea, unspecified; J44.9 Chronic obstructive pulmonary disease, unspecified; Z87.891 Personal history of nicotine dependence; Z90.49 Acquired absence of other specified parts of digestive tract; Z98.49 Cataract extraction status, unspecified eye; Z99.2 Dependence on renal dialysis; Z79.4 Long term (current) use of insulin

== ENCOUNTER → 2023-03-08 | Outpatient (CLI) | payer OTHER | LOC: WOUNDCARE 01:13 | PROVIDERS: ATTEND Nurse Practitioner Primary Care | DX: Z53.21 Procedure and treatment not carried out due to patient leaving prior to being seen by health care provider (principal) ==

== ENCOUNTER → 2023-03-17 | Outpatient (CLI) | payer OTHER | LOC: WOUNDCARE 02:08 | PROVIDERS: ATTEND Nurse Practitioner Family | DX: L89.153 Pressure ulcer of sacral region, stage 3 (principal); E11.22 Type 2 diabetes mellitus with diabetic chronic kidney disease; N18.6 End stage renal disease; I50.22 Chronic systolic (congestive) heart failure; G47.30 Sleep apnea, unspecified; E66.01 Morbid (severe) obesity due to excess calories; E03.9 Hypothyroidism, unspecified; J44.9 Chronic obstructive pulmonary disease, unspecified; Z87.891 Personal history of nicotine dependence; Z90.49 Acquired absence of other specified parts of digestive tract; Z98.49 Cataract extraction status, unspecified eye; Z99.2 Dependence on renal dialysis; Z68.41 Body mass index [BMI] 40.0-44.9, adult ==